=== PATIENT | female | born 1970 | race African-American/Black ===

== ENCOUNTER 2016-11-28 08:13 | Day surgery (SDC) | payer MEDICARE, MEDICAID ==
[2016-11-28] MEDS ORDERED: OXYCODONE-ACETAMINOPHEN 5-325 MG TABLET ONE (09:03)
[2016-11-28] MEDS ORDERED: DIAZEPAM 5 MG TABLET ONE (09:04)
[2016-11-28 09:07] LABS: HEMATOCRIT 34.1 % (36.0-47.0); HEMOGLOBIN 11.5 g/dL (12.0-15.5); HGB HCT DIFFERENCE 0.4; MEAN CORPUSCULAR HGB CONC 33.6 g/dL (32.0-36.0); MEAN CORPUSCULAR VOLUME 92 fl (80-97); RED CELL DISTRIBUTION WIDTH 15.6 % (11.5-14.0); WHITE BLOOD COUNT 9.2 10^3/uL (4.0-10.5)
[2016-11-28 09:28] LABS: ANION GAP 19 (5-19); BLOOD UREA NITROGEN 66 mg/dL (7-20); CALCIUM 9.3 mg/dL (8.4-10.2); CARBON DIOXIDE 23 mmol/L (22-30); CHLORIDE 98 mmol/L (98-107); CREATININE RESULT 9.43 mg/dL (0.52-1.25); GLUCOSE 190 mg/dL (75-110); POTASSIUM 5.2 mmol/L (3.6-5.0); SODIUM 139.8 mmol/L (137-145)
[2016-11-28] MEDS ORDERED: LIDOCAINE 0.5% INJ-PF (5 MG/ML) 50 ML SDV ONE (09:34)
[2016-11-28] MEDS ORDERED: HEPARIN SOD (PORCINE) 5,000 UNIT/ML 1 ML SYRINGE ONE (09:34)
--- NOTE | 2016-11-28 11:17 | PDOC DISCHARGE SUMMARY ---
Discharge Summary (SDC) - Discharge Final Diagnosis: Malfunctioning arteriovenous fistula. 2. End-stage renal disease on hemodialysis. 3. Peripheral arterial disease. 4. Diabetes mellitus type 2. 5. Hypertension. Date of Surgery: 11/28/16 Discharge Date: 11/28/16 Condition: Fair Treatment or Instructions: Discharge home [after recovery per ASU criteria]. Diet , [renal],as tolerated, when fully awake advance as tolerated. Activities within moderation encouraged. Follow up in my office by appointment in about [2 weeks]. Call for appointment. Leave wounds [covered], [keep clean and dry, until hemodialysis]. Meds per med rec. May shower [in 48 hrs], [try to keep operated area as dry as possible]. Referrals: MARTA CHEW PA-C [Primary Care Provider] - Discharge Diet: Other (Comments) - Renal, diabetic. Respiratory Treatments at Home: Deep Breathing/Coughing Discharge Activity: Activity As Tolerated Report the Following to Your Physician Immediately: Shortness of Breath, Unusual Bleeding
[2016-11-28 12:18] VITALS: BP 118/75
--- NOTE | 2016-11-28 15:44 | RADIOLOGY REPORT (SQ) ---
EXAM DESCRIPTION: FISTULAGRAM W/PLASTY COMPLETED DATE/TIME: 11/28/2016 3:03 pm REASON FOR STUDY: T82.858A T82.858A STENOSIS OF OTHER VASCULAR PROSTH DEV/GRFT, INIT COMPARISON: None. FLUOROSCOPY TIME: 4.1 minutes 32 images saved to PACS. TECHNIQUE: Intra-operative images acquired during surgical procedure to evaluate progress. NUMBER OF IMAGES: 32 LIMITATIONS: None. FINDINGS: Balloon catheter positioned across axillary region and upper extremity. IMPRESSION: IMAGE(S) OBTAINED DURING PROCEDURE. COMMENT: Quality ID [id number]: Final reports for procedures using fluoroscopy that document radiation exp osure indices, or exposure time and number of fluorographic images (if radiation exposure indices are not available) Please consult full operative report of the attending physician for description of the procedure. TECHNICAL DOCUMENTATION: JOB ID: [id number] [employer]- All Rights Reserved
--- NOTE | 2017-01-03 11:59 | Operative Report ---
Operative Report DATE OF SURGERY: 11/28/16 PREOPERATIVE DIAGNOSIS: Malfunctioning arteriovenous fistula. 2. End-stage renal disease on hemodialysis. 3. Peripheral arterial disease. 4. Diabetes mellitus type 2. 5. Hypertension. POSTOPERATIVE DIAGNOSIS: Malfunctioning arteriovenous fistula. 2. End-stage renal disease on hemodialysis. 3. Peripheral arterial disease. 4. Diabetes mellitus type 2. 5. Hypertension. Post angioplasty. OPERATION: 1. Needle introduction into the arteriovenous fistula. 2. Angioplasty at subclavian cephalic junction. 3. Angioplasty at fistula. 4. Angiogram and interpretation. SURGEON: ANGELINA WARD MANAGER NET: None ANESTHESIA: Moderate Sedation TISSUE REMOVED OR ALTERED: Not applicable. COMPLICATIONS: None ESTIMATED BLOOD LOSS: 5 mL. INTRAOPERATIVE FINDINGS: Of a well founded left arm brachiocephalic vein. Considerable dilatation almost a emilee fistula in the first 8 cm. Cephalad to that hard to feel. Angiogram demonstrated a tight stenosis at the cephalad cephalic and cephalic subclavian junction estimated to be up to 80% of the adjacent lumen. A collateral is noted also. These were eliminated including the collateral on angioplasty with an 8 mm balloon. A second and distinct lesion at 25 cm was also eradicated by angioplasty. Dilatation of the segment between 20 and 25 cm. This was relatively narrow demonstrated a waist. Postprocedure the fistula was much softer than initially although still with some firmness. Consideration to be given for a drug-eluting balloon in order to reduce restenosis in the future. PROCEDURE: PROCEDURE: After verifying the procedure and having obtained informed consent, the patient's left arm was prepared with Chlorhexidine and draped out with sterile linen. Local anesthesia infiltrated. Percutaneous access into the fistula ,[ antegrade], obtained about [2 cm] from the arteriovenous anastomosis using a micro puncture needle followed by micro puncture wire and then a micro puncture catheter. Angiogram demonstrated the aforementioned findings. Angioplasty was elected. A 0.035 Sterling wire was inserted, and over this, a 6 Azeri short introducer was placed, this was followed by a [7-mm ] angioplasty balloon . Angioplasty was Done at the cephalic subclavian junction and the cephalad cephalic is 7 mm balloon. Inflating with a 3 mils syringe. Completion angiogram demonstrated residual lesion. A 8 mm angioplasty balloon was now inserted over this area. Insufflater used 2 minutes The inflating up to 18 atmospheres for a minute at a time.]. Completion angiogram demonstrated [satisfactory result]. Area at the body of the fistula at about 25 cm no addressed using the balloon inflated using using a 3 mils syringe. This was done serially to the more dilated segments addressing 2 distinct waists. Completion angiogram not done. The instrumentation was now withdrawn over hand-held pressure for 10 minutes. Dressings applied, procedure concluded. Exposure time: 4.1 minutes Radiation: 20.6 mg/cm Contrast: 25 minutes of Isovue-300, low osmolality. DICTATING PHYSICIAN: ANGELINA JONES M.D. cc: ANGELINA JONES M.D. ([id number]) >>
== END 2016-11-28 11:50 | disposition home or self-care (01) ==
LOC: SC 08:13
PROVIDERS: ATTEND Surgery
PROC: 057A3DZ Dilation of Left Brachial Vein with Intraluminal Device, Percutaneous Approach (ICD-10-PCS; principal; 2016-11-28)
DX: T82.858A Stenosis of other vascular prosthetic devices, implants and grafts, initial encounter (principal); Y83.2 Surgical operation with anastomosis, bypass or graft as the cause of abnormal reaction of the patient, or of later complication, without mention of misadventure at the time of the procedure; E11.22 Type 2 diabetes mellitus with diabetic chronic kidney disease; I13.2 Hypertensive heart and chronic kidney disease with heart failure and with stage 5 chronic kidney disease, or end stage renal disease; N18.6 End stage renal disease; Z99.2 Dependence on renal dialysis; E50.9 Vitamin A deficiency, unspecified; J45.909 Unspecified asthma, uncomplicated; H91.91 Unspecified hearing loss, right ear; I73.9 Peripheral vascular disease, unspecified; Z79.51 Long term (current) use of inhaled steroids; Z79.899 Other long term (current) drug therapy; Z79.4 Long term (current) use of insulin
CPT/HCPCS: 36415; 85027; 80048; 36902; C1725 ×2; C1752; C1887; Q9967; C1769; J1644 ×2; A9270 ×2; J3490

== ENCOUNTER → 2016-12-05 | Outpatient (CLI) | payer MEDICARE, MEDICAID ==
--- NOTE | 2016-12-05 13:27 | XCELERA REPORT ---
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 Ankle brachial indicies performed. 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 Monophasic with significant attenuation from the Popliteal to the infrageniculate vessels. 50-99 % stenosis at the Femoral/Popliteal artery. Ankle Brachial index is 0.66. Left Side Arterial Evaluation Normal velocity and triphasic waveforms noted in the Common Femoral artery. Monophasic with significant attenuation from the Popliteal to the infrageniculate vessels. 50-99 % stenosis at the Femoral/Popliteal artery. Ankle Brachial index is 0.81. Interpretation Summary Severe hemodynamically significant lesions in the bilateral lower extremities, on duplex imaging, at rest. : ANGELINA TONG > Angelina Tong
== END ==
LOC: SP 10:40
PROVIDERS: ATTEND Surgery
DX: I73.9 Peripheral vascular disease, unspecified (principal)
CPT/HCPCS: 93925

== ENCOUNTER 2017-01-11 13:11 | Emergency (ER) | payer MEDICARE, MEDICAID ==
[2017-01-11] MEDS ORDERED: CEFEPIME 1 GM/D5W RTU 1 GM/50 ML RTUPB IV ONE (14:13)
[2017-01-11 14:54] LABS: HEMATOCRIT 27.7 % (36.0-47.0); HEMOGLOBIN 9.3 g/dL (12.0-15.5); HGB HCT DIFFERENCE 0.2; MEAN CORPUSCULAR HEMOGLOBIN 31.1 pg (27.0-33.4); MEAN CORPUSCULAR HGB CONC 33.5 g/dL (32.0-36.0); MEAN CORPUSCULAR VOLUME 93 fl (80-97); RED BLOOD COUNT 2.99 10^6/uL (3.72-5.28); RED CELL DISTRIBUTION WIDTH 15.3 % (11.5-14.0)
[2017-01-11 14:56] LABS: PROTHROMBIN TIME 19.6 SEC (11.4-15.4)
[2017-01-11 15:02] LABS: WHITE BLOOD COUNT 31.5 10^3/uL (4.0-10.5)
[2017-01-11 15:08] LABS: VENOUS BLOOD BASE EXCESS 1.4 mmol/L; VENOUS BLOOD PCO2 47.6 mmHg (35-63); VENOUS BLOOD PH 7.37 (7.30-7.42)
[2017-01-11 15:15] LABS: BAND NEUTROPHILS % (MANUAL) 2 % (3-5); BASOPHILS % (MANUAL) 0 % (0-2); EOSINOPHILS % (MANUAL) 0 % (0-6); LYMPHOCYTES % (MANUAL) 4 % (13-45); TOTAL CELLS COUNTED 100
[2017-01-11 15:16] LABS: HYPOCHROMASIA SLIGHT; POLYCHROMASIA SLIGHT; TOXIC GRANULATION SLIGHT
--- NOTE | 2017-01-11 15:27 | ER Document Report ---
ED General - General Mode of Arrival: Wheelchair Information source: Patient, Relative TRAVEL OUTSIDE OF THE [place] IN LAST 30 DAYS: No <BERNARD WHARTON - Last Filed: 01/11/17 19:38> <DILSHAD SCHWAB - Last Filed: 01/11/17 19:40> - General Chief Complaint: Wound Infection Stated Complaint: ALTERED MENTAL STATUS Time Seen by Provider: 01/11/17 13:48 Notes: Patient is a 46 year old female who presents to the emergency department complaining of right foot pain. Patient states that her right great toe pain has been present for a couple of week and has progressively gotten worse after a surgery to have her bilateral arteries opened. Patient was sent to the ED by Dr. Bauer from dialysis when she became hypotensive. He was concerned for sepsis. Dr. Bauer recommends transfer to [facility]. Patient has had an associated fever in which her has given her Tylenol. Patient was under treatment of Dr. Pemberton who performed her surgery. Patient is hard of hearing. (BERNARD WHARTON) - Related Data Allergies/Adverse Reactions: No Known Allergies Allergy (Verified 12/31/16 13:34) Past Medical History - General Information source: Patient, Relative - Social History Smoking Status: Former Smoker Cigarette use (# per day): No Chew tobacco use (# tins/day): No Smoking Education Provided: No Frequency of alcohol use: None Family History: None - Past Medical History Cardiac Medical History: Reports: Hx Hypertension Pulmonary Medical History: Reports: Hx Asthma Endocrine Medical History: Reports: Hx Diabetes Mellitus Type 1 Renal/ Medical History: Reports: Hx End Stage Renal Disease, Hx Hemodialysis Past Surgical History: Reports: Hx Vascular Surgery - fistula placement - Immunizations Hx Diphtheria, Pertussis, Tetanus Vaccination: Yes <BERNARD WHARTON - Last Filed: 01/11/17 19:38> Review of Systems - Review of Systems Constitutional: See HPI, Fever EENT: No symptoms reported Cardiovascular: No symptoms reported Respiratory: No symptoms reported Gastrointestinal: No symptoms reported Genitourinary: No symptoms reported Female Genitourinary: No symptoms reported Musculoskeletal: Other - right great toe and foot pain Skin: No symptoms reported Hematologic/Lymphatic: No symptoms reported -: Yes All other systems reviewed and negative <BERNARD WHARTON - Last Filed: 01/11/17 19:38> Physical Exam <BERANRD WHARTON - Last Filed: 01/11/17 19:38> <DILSHAD SCHWAB - Last Filed: 01/11/17 19:40> - Vital signs Vitals: Resp 16 01/11/17 13:27 - Notes Notes: GENERAL: Alert, interacts well. No acute distress. HEAD: Normocephalic, atraumatic. EYES: Pupils equal, round, and reactive to light. Extraocular movements intact. ENT: Oral mucosa moist, tongue midline. NECK: Full range of motion. Supple. Trachea midline. LUNGS: Clear to auscultation bilaterally, no wheezes, rales, or rhonchi. No respiratory distress. HEART: Tachycardic, regular rhythm. No murmurs, gallops, or rubs. ABDOMEN: Soft, non-tender. Non-distended. Bowel sounds present in all 4 quadrants. EXTREMITIES: Moves all 4 extremities spontaneously. No edema, radial and dorsalis pedis pulses 2/4 bilaterally. No cyanosis. Right great toe skin is sloughing. Toe is squishy, significantly softer than the rest. Right foot and leg is tender to palpation. Distal aspect cool to touch, rest of foot is warm. Right foot is extremely malodorous. NEUROLOGICAL: Alert and oriented x3. Normal speech. Biceps and patellar DTRs 2+ bilaterally. PSYCH: Normal affect, normal mood. SKIN: Warm, dry, normal turgor. No rashes or lesions noted. (BERNARD WHARTON) Course - Laboratory Result Diagrams: 01/11/17 14:15 01/11/17 14:15 - Consults Dr. Agrawal, Resident Time consulted: 16:05 - Would like patient to go to [facility] <BERNARD WHRATON - Last Filed: 01/11/17 19:38> - Laboratory Result Diagrams: 01/11/17 14:15 01/11/17 14:15 <DILSHAD SCHWAB - Last Filed: 01/11/17 19:40> - Re-evaluation Re-evalutation: 01/11/17 17:23 CBC shows marked leukocytosis of 31.5, anemia consistent with her chronic kidney disease 9.3, platelets normal, INR prolonged at 1.55 likely related to the dialysis she was just undergoing, venous blood gas unremarkable, chemistries show anion gap of 20, chronic renal failure, hyperglycemia but this is not fasting, there is elevated total and direct bilirubin and surprisingly they are equal at 2.2 respectively, otherwise unremarkable. Lactic acid is normal. Given her hypotension, obvious source of infection from the gangrenous foot as well as her multiple comorbidities and her marked leukocytosis and concern for sepsis in fact patient is consistent with septic shock at this time. EKG does have some ischemia on it but no evidence of infarction, there are concerning T- wave inversions in the precordial and lateral leads. Patient is a dialysis patient and will not tolerate an immediate bolus of 30 cc/ kg of normal saline, she was given an initial bolus of 500 mL's of normal saline which did significantly improve her blood pressure however then the ultrasound-guided IV that I inserted in the right upper extremity infiltrated and I had to insert a right EJ also ultrasound-guided, we are now infusing another 500 cc bag of normal saline but at a much slower rate. I discussed this patient with her web operations manager Dr. Bauer who recommends transfer to a another facility that has vascular surgery and cardiology who can consult on her operative needs. I did discuss this patient initially with Dr. Agrawal the internal medicine resident who requested that Dr. Pemberton service be consulted instead, Dr. Pemberton service was contacted by the digitizer operator and Dr. Dax Mcmullen accepted the patient to his service based off of the report from the digitizer operator. Patient will be transferred as a rapid transport as I am concerned by her instability and evidence of septic shock. Cefepime was given empirically. (DILSHAD SCHWAB) - Vital Signs Vital signs: Temp Pulse Resp BP Pulse Ox 15 119/56 L 99 01/11/17 18:00 01/11/17 17:20 01/11/17 18:00 - Laboratory Laboratory results interpreted by me: 01/11/17 01/11/17 01/11/17 14:15 14:15 14:15 WBC 31.5 H* RBC 2.99 L Hgb 9.3 L Hct 27.7 L RDW 15.3 H Seg Neuts % (Manual) 88 H Band Neutrophils % 2 L Lymphocytes % (Manual) 4 L Abs Neuts (Manual) 28.4 H Abs Monocytes (Manual) 1.9 H PT 19.6 H Chloride 96 L Anion Gap 20 H BUN 86 H Creatinine 13.43 H Est GFR ( Amer) 4 L Est GFR (Non-Af Amer) 3 L Glucose 147 H POC Glucose Total Bilirubin 2.2 H Direct Bilirubin 2.2 H AST 41 H Alkaline Phosphatase 219 H 01/11/17 14:51 WBC RBC Hgb Hct RDW Seg Neuts % (Manual) Band Neutrophils % Lymphocytes % (Manual) Abs Neuts (Manual) Abs Monocytes (Manual) PT Chloride Anion Gap BUN Creatinine Est GFR ( Amer) Est GFR (Non-Af Amer) Glucose POC Glucose 156 H Total Bilirubin Direct Bilirubin AST Alkaline Phosphatase Critical Care Note - Critical Care Note Total time excluding time spent on procedures (mins): 55 <DILSHAD SCHWAB - Last Filed: 01/11/17 19:40> Discharge <BERNARD WHARTON - Last Filed: 01/11/17 19:38> <DILSHAD SCHWAB - Last Filed: 01/11/17 19:40> - Discharge Clinical Impression: Septic shock, Gangrene of right foot, ESRD (end stage renal disease) on dialysis Condition: Critical Disposition: [facility] Scribe Attestation: 01/11/17 19:40 I personally performed the services described in the documentation, reviewed and edited the documentation which was dictated to the scribe in my presence, and it accurately records my words and actions. (DILSHAD SCHWAB) Scribe Documentation - Scribe Written by Luis:: Luis Allen, 01/11/2017 15:42 acting as scribe for :: Stacey <BERNARD WHARTON - Last Filed: 01/11/17 19:38> Sepsis <BERNARD WHARTON - Last Filed: 01/11/17 19:38> - Sepsis Documentation Sepsis Patient: Yes - Vital Signs Interpretation: Tachycardic - Cardiovascular Peripheral Pulse Strength: Weak Capillary refill: < 3 seconds Rhythm: Tachycardia Heart Sounds: Normal auscultation - Respiratory Breath Sounds: Clear Respiratory Status: No respiratory distress - Skin Skin Color: Other <DILSHAD SCHWAB - Last Filed: 01/11/17 19:40> - Vital Signs Vitals: Temp Pulse Resp BP Pulse Ox 15 119/56 L 99 01/11/17 18:00 01/11/17 17:20 01/11/17 18:00 Current vitals at 1725 the time of reassessment includes sinus tachycardia at a rate of 106, pulse ox 97% on 2 L, respiratory rate of 20, blood pressure 119/56. (DILSHAD SCHWAB) - Skin Notes: Skin is sloughed over the great toe on the right foot, otherwise skin is warm with capillary refill less than 3 seconds. (DILSHAD SCHWAB)
[2017-01-11 15:28] LABS: ALANINE AMINOTRANSFERASE 26 U/L (9-52); ALBUMIN 3.7 g/dL (3.5-5.0); ALKALINE PHOSPHATASE 219 U/L (38-126); ASPARTATE AMINO TRANSFERASE 41 U/L (14-36); BILIRUBIN,DIRECT 2.2 mg/dL (0.0-0.4); BILIRUBIN,TOTAL 2.2 mg/dL (0.2-1.3); BLOOD UREA NITROGEN 86 mg/dL (7-20); CALCIUM 8.9 mg/dL (8.4-10.2); CHLORIDE 96 mmol/L (98-107); CREATININE RESULT 13.43 mg/dL (0.52-1.25); GLUCOSE 147 mg/dL (75-110); TOTAL PROTEIN 8.1 g/dL (6.3-8.2)
[2017-01-11] MEDS ORDERED: NORMAL SALINE 500 ML IV ONE ×2 (15:35)
[2017-01-11 15:42] LABS: CARBON DIOXIDE 25 mmol/L (22-30); SODIUM 141.3 mmol/L (137-145)
[2017-01-11 15:43] LABS: ANION GAP 20 (5-19)
[2017-01-11 20:21] VITALS: BP 125/57
--- NOTE | 2017-01-11 23:54 | EKG REPORT ---
SEVERITY:- ABNORMAL ECG - SINUS TACHYCARDIA PROBABLE LEFT ATRIAL ABNORMALITY LEFT AXIS DEVIATION ABNORMAL T, CONSIDER ISCHEMIA, LATERAL LEADS : Confirmed by: Bam Diez 11-Jan-2017 23:54:07
[2017-01-12 11:13] LABS: PATH REVIEW PATHOLOGIST REVIEWED
== END 2017-01-11 20:20 | disposition short-term general hospital (02) ==
LOC: ER 13:11
DX: A41.9 Sepsis, unspecified organism (principal); R65.21 Severe sepsis with septic shock; E10.52 Type 1 diabetes mellitus with diabetic peripheral angiopathy with gangrene; E10.65 Type 1 diabetes mellitus with hyperglycemia; I12.0 Hypertensive chronic kidney disease with stage 5 chronic kidney disease or end stage renal disease; E10.22 Type 1 diabetes mellitus with diabetic chronic kidney disease; N18.6 End stage renal disease; Z99.2 Dependence on renal dialysis; D64.9 Anemia, unspecified; J45.909 Unspecified asthma, uncomplicated
CPT/HCPCS: 93005; 99291; 96361; 96365; 36415; 87040; 82962; 85025; 85610; 87077; 80053; 87186; 82803; 83605; 93010; J7040; J0692

== ENCOUNTER 2017-03-06 23:48 | Emergency (ER) | payer MEDICARE, MEDICAID ==
[2017-03-07] MEDS ORDERED: ACETAMINOPHEN 325 MG TABLET PO ONE (02:17)
[2017-03-07] MEDS ORDERED: DIAZEPAM 5 MG TABLET PO ONE (02:17)
[2017-03-07 02:27] LABS: ABSOLUTE BASOPHILS # (AUTO) 0.1 10^3/uL (0.0-0.2); ABSOLUTE EOSINOPHILS # (AUTO) 0.2 10^3/uL (0.0-0.6); ABSOLUTE MONOCYTES (AUTO) 0.6 10^3/uL (0.1-1.4); ABSOLUTE NEUT (AUTO) 6.9 10^3/uL (1.7-8.2); BASOPHILS % (AUTO) 1.1 % (0-2); EOSINOPHILS % (AUTO) 2.2 % (0-6); HEMOGLOBIN 8.4 g/dL (12.0-15.5); LYMPHOCYTES % (AUTO) 11.1 % (13-45); MEAN CORPUSCULAR HEMOGLOBIN 29.8 pg (27.0-33.4); MEAN CORPUSCULAR HGB CONC 32.5 g/dL (32.0-36.0); MEAN CORPUSCULAR VOLUME 92 fl (80-97); MONOCYTES % (AUTO) 6.4 % (3-13); PLATELET COUNT 203 10^3/uL (150-450); RED BLOOD COUNT 2.84 10^6/uL (3.72-5.28); SEGMENTED NEUTROPHILS % (AUTO) 79.2 % (42-78); TOTAL CELLS COUNTED % (AUTO) 100 %; WHITE BLOOD COUNT 8.8 10^3/uL (4.0-10.5)
--- NOTE | 2017-03-07 02:45 | ER Document Report ---
ED General - General Chief Complaint: Fall Injury Stated Complaint: FALL,NOSE BLEED Time Seen by Provider: 03/07/17 01:48 Notes: Patient is a 46-year-old female with past medical history of diabetes, chronic pain, chronic anxiety, who presents after she fell out of her bed while trying to reach for something on the end table. She states that she landed onto the floor on her face. She notes that she also hit the upper portion of her abdomen. She originally had a nosebleed but this has since stopped. She arrives by EMS. At time of presentation there is no active nosebleed. Patient claims of a dull, constant, throbbing pain to her nose. She notes some intermittent mild epigastric abdominal discomfort but denies that this is the main reason for her presentation. She denies any other injury to any other part of her body. She does not take any form of anticoagulation. She does have chronic anemia at baseline. TRAVEL OUTSIDE OF THE [place] IN LAST 30 DAYS: No - Related Data Allergies/Adverse Reactions: No Known Allergies Allergy (Verified 12/31/16 13:34) Past Medical History - General Information source: Patient, Relative - Social History Smoking Status: Never Smoker Frequency of alcohol use: None Drug Abuse: None Lives with: Spouse/Significant other Family History: Reviewed & Not Pertinent - Past Medical History Cardiac Medical History: Reports: Hx Hypertension Denies: Hx Coronary Artery Disease, Hx Heart Attack Pulmonary Medical History: Reports: Hx Asthma Denies: Hx Bronchitis, Hx COPD, Hx Pneumonia Neurological Medical History: Denies: Hx Cerebrovascular Accident, Hx Seizures Endocrine Medical History: Reports: Hx Diabetes Mellitus Type 1 Renal/ Medical History: Reports: Hx End Stage Renal Disease, Hx Hemodialysis. Denies: Hx Peritoneal Dialysis Musculoskeltal Medical History: Denies Hx Arthritis Past Surgical History: Reports: Hx Vascular Surgery - fistula placement - Immunizations Hx Diphtheria, Pertussis, Tetanus Vaccination: Yes Review of Systems - Review of Systems Notes: Constitutional: Negative for fever. Eyes: Negative for visual changes. ENT: Positive for facial injury Cardiovascular: Negative for chest injury. Respiratory: Negative for shortness of breath. Gastrointestinal: Negative for abdominal injury. Genitourinary: Negative for genital injury Musculoskeletal: Negative for back injury. Skin: Negative for laceration/abrasions. Neurological: Negative for head injury. Physical Exam - Vital signs Vitals: Temp Pulse Resp BP Pulse Ox 98.1 F 81 20 119/70 93 03/07/17 00:00 03/07/17 00:00 03/07/17 00:00 03/07/17 00:00 03/07/17 00:00 Interpretation: Normal Notes: PHYSICAL EXAMINATION: GENERAL: Well-appearing, well-nourished and in no acute distress. HEAD: Atraumatic, normocephalic. EYES: Pupils equal round and reactive to light, extraocular movements intact, sclera anicteric, conjunctiva are normal. ENT: nares patent, small amount of dried blood in the left nostril, right nostril is clear. No septal hematoma. No nasal bone deviation. NECK: Normal range of motion, supple without lymphadenopathy LUNGS: Breath sounds clear to auscultation bilaterally and equal. No wheezes rales or rhonchi. HEART: Regular rate and rhythm without murmurs ABDOMEN: Soft, nontender, normoactive bowel sounds. No guarding, no rebound. No masses appreciated. EXTREMITIES: Right BKA, otherwise external exam is unremarkable NEUROLOGICAL: No focal neurological deficits. Moves all extremities spontaneously and on command. PSYCH: Normal mood, normal affect. SKIN: Warm, Dry, normal turgor, no rashes or lesions noted. Course - Re-evaluation Re-evalutation: 03/07/17 02:41 Presentation of a nosebleed after a direct nose trauma that has terminated prior to my assessment. Patient is overall nontoxic in appearance. No septal hematoma. Dried blood in the left nostril. There is no evidence of facial trauma otherwise. No obvious deformity to the nose. Nasal bone x-ray does show an acute nondisplaced nasal bone fracture. Patient also complained of some mild abdominal pain. Abdominal exam without any evidence of trauma. There is no pain on palpation of the abdomen. No indication for CT or ultrasound imaging of the abdomen at this time. Her hemoglobin is low at 8.7 but this is actually improved from less than 1 month ago at which time it was 8.7. At this time will discharge with return precautions and follow-up recommendations. Verbal discharge instructions given a the bedside and opportunity for questions given. Medication warnings reviewed. Patient is in agreement with this plan and has verbalized understanding of return precautions and the need for primary care follow-up in the next 24-72 hours. - Vital Signs Vital signs: Temp Pulse Resp BP Pulse Ox 98.1 F 81 20 119/70 93 03/07/17 00:00 03/07/17 00:00 03/07/17 00:00 03/07/17 00:00 03/07/17 00:00 - Laboratory Result Diagrams: 03/07/17 02:15 Laboratory results interpreted by me: 03/07/17 02:15 RBC 2.84 L Hgb 8.4 L Hct 26.0 L RDW 16.0 H Seg Neutrophils % 79.2 H Lymphocytes % 11.1 L - Diagnostic Test Radiology reviewed: Reports reviewed Discharge - Discharge Clinical Impression: Nosebleed Fall Qualifiers: Encounter type: initial encounter Qualified Code(s): W19.XXXA - Unspecified fall, initial encounter Closed nondisplaced fracture of nasal bone Qualifiers: Encounter type: initial encounter Qualified Code(s): S02.2XXA - Fracture of nasal bones, initial encounter for closed fracture Condition: Good Disposition: HOME, SELF-CARE Additional Instructions: You were seen today for a nosebleed. If this restarts please apply direct pressure to the area for 15 minutes without releasing pressure. You can use 4- 5 sprays the Afrin (oxymetazoline) spray that was given to you here in the emergency room into the affected side prior to applying the pressure. You need to apply vasaline or a similar product along the inside of the side of the nose that is bleeding twice daily to help heal the inside of your nose. Please return to emergency department if these measures do not control the bleeding. Please also return if you pass out, have significant pain of the nose or face, or any other symptoms that are concerning to you. Your x-ray does show a small nondisplaced nasal bone fracture which will heal on its own over the next 8-10 weeks. You will noticed increased swelling to the area before it completely heals. You may apply ice to the nose as needed for pain and discomfort. Referrals: MARTA CHEW PA-C [Primary Care Provider] - Follow up as needed
--- NOTE | 2017-03-07 03:11 | RADIOLOGY REPORT (SQ) ---
EXAM DESCRIPTION: NOSE/NASAL BONES CLINICAL HISTORY: nose trauma COMPARISON: None. FINDINGS: 3 views of the nasal bones. Acute nondisplaced nasal bone fracture. No other facial bone fractures identified. Visualized portions of the orbits are unremarkable. IMPRESSION: Acute nondisplaced nasal bone fracture.
[2017-03-07] MEDS ORDERED: OXYMETAZOLINE HCL 0.05% NASAL SPRAY 15 ML BOTTLE NASL ONE (03:26)
[2017-03-07 05:22] VITALS: BP 119/93
== END 2017-03-07 12:30 | disposition home or self-care (01) ==
LOC: ER 23:48
DX: S02.2XXA Fracture of nasal bones, initial encounter for closed fracture (principal); R04.0 Epistaxis; W06.XXXA Fall from bed, initial encounter; I10 Essential (primary) hypertension; E10.22 Type 1 diabetes mellitus with diabetic chronic kidney disease; N18.6 End stage renal disease
CPT/HCPCS: 99285; 36415; 85025; 70160; A9270 ×2; J3490

== ENCOUNTER 2017-03-08 15:25 | Inpatient (IN) | payer MEDICARE, MEDICAID ==
[2017-03-08] MEDS ORDERED: ONDANSETRON 4 MG TAB.RAPDIS PO ONE (17:39)
--- NOTE | 2017-03-08 17:44 | ER Document Report ---
ED Medical Screen (RME) - General Chief Complaint: Abdominal Pain Stated Complaint: ABDOMINAL PAIN Time Seen by Provider: 03/08/17 17:37 Mode of Arrival: Wheelchair Information source: Relative Notes: Pt is a 46 year old female with CKD on dialysis and hearing loss who presents to the ER today for abd pain/n/v/d x 3 days. She went to dialysis yesterday as scheduled. Family member states that she at her normal mental status today. She shows me with her hand that her abd pain is in the middle of her abd. TRAVEL OUTSIDE OF THE [place] IN LAST 30 DAYS: No - Related Data Allergies/Adverse Reactions: No Known Allergies Allergy (Verified 12/31/16 13:34) Past Medical History - General Information source: Patient - Past Medical History Cardiac Medical History: Reports: Hx Hypertension Denies: Hx Coronary Artery Disease, Hx Heart Attack Pulmonary Medical History: Reports: Hx Asthma Denies: Hx Bronchitis, Hx COPD, Hx Pneumonia Neurological Medical History: Denies: Hx Cerebrovascular Accident, Hx Seizures Endocrine Medical History: Reports: Hx Diabetes Mellitus Type 1 Renal/ Medical History: Reports: Hx End Stage Renal Disease, Hx Hemodialysis. Denies: Hx Peritoneal Dialysis Musculoskeltal Medical History: Denies Hx Arthritis Past Surgical History: Reports: Hx Vascular Surgery - fistula placement - Immunizations Hx Diphtheria, Pertussis, Tetanus Vaccination: Yes History of Influenza Vaccine for 11/2016 - 04/2017 Season: Yes Influenza Administration Date for 11/2016 - 04/2017 Season: 10/28/16 Review of Systems - Review of Systems Gastrointestinal: See HPI Physical Exam - Vital signs Vitals: Temp Pulse Resp BP Pulse Ox 99.0 F 100 16 160/82 H 100 03/08/17 16:14 03/08/17 16:14 03/08/17 16:14 03/08/17 16:14 03/08/17 16:14 - Notes Notes: General: hard of hearing, slumped over in wheelchair, will respond to questions if spoken loudly Course - Vital Signs Vital signs: Temp Pulse Resp BP Pulse Ox 99.0 F 100 16 160/82 H 100 03/08/17 16:14 03/08/17 16:14 03/08/17 16:14 03/08/17 16:14 03/08/17 16:14
[2017-03-08 19:23] LABS: ABSOLUTE BASOPHILS # (AUTO) 0.1 10^3/uL (0.0-0.2); ABSOLUTE EOSINOPHILS # (AUTO) 0.1 10^3/uL (0.0-0.6); ABSOLUTE LYMPHOCYTES (AUTO) 1.1 10^3/uL (0.5-4.7); ABSOLUTE MONOCYTES (AUTO) 0.9 10^3/uL (0.1-1.4); ABSOLUTE NEUT (AUTO) 10.8 10^3/uL (1.7-8.2); BASOPHILS % (AUTO) 1.1 % (0-2); HEMATOCRIT 31.2 % (36.0-47.0); LYMPHOCYTES % (AUTO) 8.1 % (13-45); MEAN CORPUSCULAR HEMOGLOBIN 29.2 pg (27.0-33.4); MEAN CORPUSCULAR HGB CONC 32.1 g/dL (32.0-36.0); MEAN CORPUSCULAR VOLUME 91 fl (80-97); MONOCYTES % (AUTO) 6.8 % (3-13); PLATELET COUNT 244 10^3/uL (150-450); RED BLOOD COUNT 3.43 10^6/uL (3.72-5.28); RED CELL DISTRIBUTION WIDTH 16.1 % (11.5-14.0); TOTAL CELLS COUNTED % (AUTO) 100 %
[2017-03-08 19:42] LABS: ALANINE AMINOTRANSFERASE 61 U/L (9-52); ALBUMIN 4.6 g/dL (3.5-5.0); ALKALINE PHOSPHATASE 259 U/L (38-126); ANION GAP 19 (5-19); ASPARTATE AMINO TRANSFERASE 57 U/L (14-36); BILIRUBIN,DIRECT 1.1 mg/dL (0.0-0.4); BILIRUBIN,TOTAL 1.1 mg/dL (0.2-1.3); BLOOD UREA NITROGEN 64 mg/dL (7-20); CALCIUM 8.5 mg/dL (8.4-10.2); CARBON DIOXIDE 23 mmol/L (22-30); CHLORIDE 99 mmol/L (98-107); GLUCOSE 87 mg/dL (75-110); LIPASE 44.2 U/L (23-300); POTASSIUM 4.8 mmol/L (3.6-5.0); SODIUM 141.2 mmol/L (137-145); TOTAL PROTEIN 8.9 g/dL (6.3-8.2)
[2017-03-08] MEDS ORDERED: HYDROMORPHONE HCL INJ/PF 2 MG/ML AMPULE IM ONE (22:24)
--- NOTE | 2017-03-08 22:55 | ER Document Report ---
ED General - General Chief Complaint: Abdominal Pain Stated Complaint: ABDOMINAL PAIN Time Seen by Provider: 03/08/17 17:37 Mode of Arrival: Wheelchair Notes: Patient is a 46-year-old female presents with complaint abdominal pain. Bone pain that started after she fell 1 week ago. Patient hit her nose had bleeding from her nose. That time she was discharged. Abdominal pain is continued. She says some vomiting. Is difficult to determine whether or not she has a history of cholecystectomy or not. She is hard of hearing. Family members with her. When we ask her she initially says yes and then she says "do think there could be something wrong with my gallbladder?". Diarrhea. She is on dialysis. Last dialysis was Monday and things were normal. She is due for dialysis tomorrow. No comp occasions with dialysis as of recently. She also complains of some pain that is chronic in her right leg. 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 She still has valdez in place and is scheduled to see Dr. Galeana this coming week to have these removed. This pain in her right leg is unchanged. No recent discharge or redness or swelling to the right leg. TRAVEL OUTSIDE OF THE [place] IN LAST 30 DAYS: No - Related Data Allergies/Adverse Reactions: No Known Allergies Allergy (Verified 12/31/16 13:34) Past Medical History - General Information source: Patient - Social History Smoking Status: Former Smoker Frequency of alcohol use: None Drug Abuse: None Family History: Reviewed & Not Pertinent Patient has suicidal ideation: No Patient has homicidal ideation: No - Past Medical History Cardiac Medical History: Reports: Hx Hypertension Denies: Hx Coronary Artery Disease, Hx Heart Attack Pulmonary Medical History: Reports: Hx Asthma Denies: Hx Bronchitis, Hx COPD, Hx Pneumonia Neurological Medical History: Denies: Hx Cerebrovascular Accident, Hx Seizures Endocrine Medical History: Reports: Hx Diabetes Mellitus Type 1 Renal/ Medical History: Reports: Hx End Stage Renal Disease, Hx Hemodialysis. Denies: Hx Peritoneal Dialysis Musculoskeltal Medical History: Denies Hx Arthritis Past Surgical History: Reports: Hx Vascular Surgery - fistula placement - Immunizations Hx Diphtheria, Pertussis, Tetanus Vaccination: Yes Review of Systems - Review of Systems Notes: My Normal Review Basic REVIEW OF SYSTEMS: CONSTITUTIONAL : Denies fever, chills, or sweats. Denies recent illness. EENT: Denies eye, ear, throat, or mouth pain or symptoms. Denies nasal or sinus congestion. CARDIOVASCULAR: Denies chest pain. RESPIRATORY: Denies cough, cold, or chest congestion. Denies shortness of breath, difficulty breathing, or wheezing. GASTROINTESTINAL: Abdominal pain. Some nausea vomiting. No diarrhea. GENITOURINARY: Denies difficulty urinating, painful urination, burning, frequency, or blood in urine. MUSCULOSKELETAL: Right leg pain. SKIN: Denies rash or skin lesions. NEUROLOGICAL: Denies altered mental status or loss of consciousness. Denies headache. Denies weakness or paralysis or loss of use of either side. Denies problems with gait or speech. Denies sensory or motor loss. ALL OTHER SYSTEMS REVIEWED AND NEGATIVE. Physical Exam - Vital signs Vitals: Temp Pulse Resp BP Pulse Ox 99.0 F 100 16 160/82 H 100 03/08/17 16:14 03/08/17 16:14 03/08/17 16:14 03/08/17 16:14 03/08/17 16:14 - Notes Notes: General Appearance: Well nourished, alert, cooperative, no acute distress, mild obvious discomfort. Vitals: reviewed, See vital signs table. Head: no swelling or tenderness to the head Eyes: PERRL, EOMI, Conjuctiva clear Mouth: No decreasd moisture Lungs: No wheezing, No rales, No rhonci, No accessory muscle use, good air exchange bilaterally. Heart: Normal rate, Regular rythm, No murmur, no rub Abdomen: Normal BS, soft, No rigidity, patient has mild to moderate pain to palpation no matter where you palpate her abdomen, No guarding, no rebound Extremities: strength 5/5 in all extremities, good pulses in all extremities, no swelling or tenderness in the extremities, no edema. Skin: warm, dry, appropriate color, no rash Neuro: speech clear, oriented x 3, normal affect, responds appropriately to questions. Course - Re-evaluation Re-evalutation: 03/09/17 01:28 Patient had a distended gallbladder on CT scan. I therefore order the ultrasound. When I went to the ultrasound patient suddenly vomited several times and then passed out. Arrived patient was started to wake up. She felt short of breath. She is brought back to the ER oxygen saturation was 100% with her receiving supplemental oxygen. We have been able to titrate oxygen to off. She is now awake and alert. She denies any abdominal pain at this time. I have ordered an EKG. I have ordered cardiac enzymes. Lung loza remain clear. 03/09/17 05:45 Dr. Jane is having difficulty ordering HIDA scan through [facility]. I therefore ordered for him on his behalf. He said he would follow-up on the results. I did speak with Dr. Bose, hospitalist, as well as Dr. Abel, surgical list about the patient. Her history and exam is very atypical and does not consistent with any one particular thing. Her pain is diffuse. She does have a history of this fall however she says that the pain and vomiting occur whenever she tries to eat or drink anything. She also has diarrhea. CT scan is very vague as to what could be causing it. Her ultrasound does show that she has a dilated gallbladder with sludge. My concern is that she is a diabetic and end-stage renal disease patient and noticed this is the gallbladder causing her symptoms that she could of course get worse. Dr. figueroa agree to evaluate the patient he did. Dr. Bose agreed to admit the patient. I did speak with nursing banking supervisor says we do have dialysis capability to dialysis patient. Her flight nurse is Dr. Bauer. She is due for dialysis today. They would defer the workup to further delineate if this is indeed her gallbladder some other cause of what is causing her symptoms. Troponin is also elevated. This could be related to the fact that she is due for dialysis now. Dr. Bose will follow up on repeat troponin and have patient dialyzed to help further determine the exact etiology behind the troponin. Patient denies any form of chest pain. Dictation of this chart was performed using voice recognition software; therefore, there may be some unintended grammatical errors. - Vital Signs Vital signs: Temp Pulse Resp BP Pulse Ox 99.0 F 100 10 L 106/68 96 03/08/17 16:14 03/08/17 16:14 03/09/17 03:31 03/09/17 03:31 03/09/17 03:31 - Laboratory Result Diagrams: 03/08/17 18:15 03/08/17 18:15 Laboratory results interpreted by me: 03/08/17 03/08/17 03/09/17 18:15 18:15 03:47 WBC 13.0 H RBC 3.43 L Hgb 10.0 L Hct 31.2 L RDW 16.1 H Seg Neutrophils % 83.0 H Lymphocytes % 8.1 L Absolute Neutrophils 10.8 H BUN 64 H Creatinine 10.36 H Est GFR ( Amer) 5 L Est GFR (Non-Af Amer) 4 L Direct Bilirubin 1.1 H GGT AST 57 H ALT 61 H Alkaline Phosphatase 259 H Creatine Kinase 179 H CK-MB (CK-2) Total Protein 8.9 H 03/09/17 03/09/17 03:47 03:47 WBC RBC Hgb Hct RDW Seg Neutrophils % Lymphocytes % Absolute Neutrophils BUN Creatinine Est GFR ( Amer) Est GFR (Non-Af Amer) Direct Bilirubin GGT 95 H AST ALT Alkaline Phosphatase Creatine Kinase CK-MB (CK-2) 4.76 H Total Protein - EKG Interpretation by Me Additional EKG results interpreted by me: 03/09/17 01:30 EKG is reviewed and interpreted by me. EKG shows normal sinus rhythm with rate of [address] segment depression in the lateral precordial leads as well as lead II. T-wave inversions in leads I, aVL and V6. WI interval, QRS duration are within normal range. QTc interval is prolonged. The T-wave inversions and ST segment depressions are unchanged comparison to her old EKG from January 11, 2017. 03/09/17 01:31 Discharge - Discharge Clinical Impression: Cholecystitis, ESRD (end stage renal disease), Elevated troponin Syncope Qualifiers: Syncope type: unspecified Qualified Code(s): R55 - Syncope and collapse Condition: Stable Disposition: ADMITTED INPATIENT Admitting Provider: Hospitalist Unit Admitted: [facility]
--- NOTE | 2017-03-09 00:08 | RADIOLOGY REPORT (SQ) ---
EXAM DESCRIPTION: CT ABD/PELVIS NO ORAL OR IV COMPLETED DATE/TIME: 03/08/2017 11:17 pm REASON FOR STUDY: abdominal pain COMPARISON: None. TECHNIQUE: CT scan of the abdomen and pelvis performed without intravenous or oral contrast. Images reviewed with lung, soft tissue, and bone windows. Reconstructed coronal and sagittal MPR images revi ewed. All images stored on PACS. All CT scanners at this facility use dose modulation, iterative reconstruction, and/or weight based d osing when appropriate to reduce radiation dose to as low as reasonably achievable (ALARA). [facility]: Dose Right [facility]: CareDose [facility]: Dose Right [facility]: Teradose 4D [facility]: [employer] RADIATION DOSE: CT Rad equipment meets quality standard of care and radiation dose reduction techniq ues were employed. CTDIvol: 24.8 mGy. DLP: 1317 mGy-cm.mGy. LIMITATIONS: None. FINDINGS: LOWER CHEST: The heart is enlarged. Atelectatic changes are seen at the bilateral lung ba ses. No pleural effusion. NON-CONTRASTED LIVER, SPLEEN, ADRENALS: Evaluation limited by lack of IV contrast. The liver is enla rged measuring 22.2 cm in craniocaudal dimension. There is a 6.0 x 3.1 cm hypodense lesion along the falciform ligament in the left hepatic lobe. The spleen is enlarged measuring 13.9 cm in craniocaud al dimension. PANCREAS: No peripancreatic inflammatory changes. GALLBLADDER: Distended. RIGHT KIDNEY AND URETER: Assessment for masses limited by lack of IV contrast. No significant calci fications. No hydronephrosis or hydroureter. LEFT KIDNEY AND URETER: Assessment for masses limited by lack of IV contrast. No significant calcif ications. No hydronephrosis or hydroureter. AORTA AND RETROPERITONEUM: No abdominal aortic aneurysm. No retroperitoneal masses or adenopathy. BOWEL AND PERITONEAL CAVITY: No dilated bowel loops. There is wall thickening at the colon. Small a mount of free fluid. No free air. APPENDIX: Normal. PELVIS, BLADDER, AND ABDOMINAL WALL:The urinary bladder is partially distended. The uterus is presen t. Small free fluid. There is a small fat containing umbilical hernia. There is diffuse subcutaneo us edema. BONES: Degenerative changes in the spine. IMPRESSION: 1. Hepatosplenomegaly. Cystic lesion at the left hepatic lobe, incompletely evaluated o n unenhanced CT. Ultrasound may help in further evaluation. 2. Distended gallbladder, please correlate with clinical concern for acute cholecystitis. 3. Wall thickening at the colon, may be seen with colitis. 4. Small ascites. 5. Diffuse subcutaneous edema. 6. Cardiomegaly. 7. Bibasilar atelectasis. COMMENT: Quality ID # [id number]: Final reports with documentation of one or more dose reduction techniques (e.g., Automated exposure control, adjustment of the mA and/or kV according to patient size, use of iterative reconstruction technique) TECHNICAL DOCUMENTATION: JOB ID: [id number] [employer]- All Rights Reserved
--- NOTE | 2017-03-09 01:56 | RADIOLOGY REPORT (SQ) ---
EXAM DESCRIPTION: CHEST SINGLE VIEW CLINICAL HISTORY: dyspnea COMPARISON: None. FINDINGS: Single frontal view of the chest. Cardiomegaly. Low lung volumes. Leads overlie the chest. Streaky bibasilar opacities. No pneumothorax. No definite pleural effusion. No displaced rib fractures identified. Upper abdominal soft tissues are unremarkable. IMPRESSION: 1. Cardiomegaly. 2. Streaky bibasilar opacities may be related to atelectasis.
--- NOTE | 2017-03-09 04:22 | RADIOLOGY REPORT (SQ) ---
EXAM DESCRIPTION: U/S ABDOMEN LTD W/DOPPLER CLINICAL HISTORY: ruq. distended GB on CT COMPARISON: None. TECHNIQUE: Real-time sonographic images of the right upper abdomen were obtained using a curved multihertz transducer. FINDINGS: The visualized portions of the pancreas are unremarkable. The visualized portions of the aorta and IVC are unremarkable. The liver has normal contour and echogenicity. Hepatopedal flow in the portal vein. Cystic structure within the falciform ligament measuring 7.6 x 3.6 x 3.4 cm no internal echogenicity or debris. Echogenic material within the gallbladder lumen some of which is posterior shadowing. These findings are compatible with gallstones with sludge. Normal gallbladder wall thickness. Negative reported sonographic Noel sign. Common bile duct measures 0.4 cm. The right kidney measures 8.6 cm in length. No hydronephrosis, solid renal mass, or shadowing calculi. IMPRESSION: 1. Cholelithiasis with gallbladder sludge. These findings could be seen with but are not diagnostic for acute cholecystitis. 2. 7.6 cm cystic structure along the falciform ligament. This structure has benign characteristics with no internal echogenicity. This may represent an exophytic hepatic cyst. Given size follow-up CT or ultrasound in 6-12 months recommended for stability.
[2017-03-09 04:23] LABS: CREATINE KINASE MB 4.76 ng/mL (<4.55)
[2017-03-09 04:26] LABS: TROPONIN I 0.14 ng/mL
[2017-03-09] MEDS ORDERED: PIPERACILLIN/TAZOBACTAM 2.25 GM VIAL IV ONE (04:35)
[2017-03-09] MEDS ORDERED: GLUCAGON,HUMAN RECOMB 1 MG INJ SUBCUT PRN ×2 (05:41→16:10)
[2017-03-09] MEDS ORDERED: ACETAMINOPHEN 325 MG TABLET PO PRN ×2 (05:41→14:33)
[2017-03-09] MEDS ORDERED: PROMETHAZINE HCL 25 MG TABLET PO PRN (05:41)
[2017-03-09] MEDS ORDERED: DEXTROSE 40% GEL 15 GM TUBE PO PRN ×6 (05:41→16:11)
[2017-03-09] MEDS ORDERED: DEXTROSE 50%-WATER 25 GM/50 ML DISP.SYRIN IV PRN ×6 (05:41→16:11)
--- NOTE | 2017-03-09 05:44 | PDOC CONSULTATION ---
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 Brought to ED by her friend and noted fx nose then sent home. Continued to have abdominal pains then now with diarrhea. Brought back to ED because of diffuse abdominal pains, Past Medical History Cardiac Medical History: Reports: Hypertension Denies: Coronary Artery Disease, Myocardial Infarction Pulmonary Medical History: Reports: Asthma Denies: Bronchitis, Chronic Obstructive Pulmonary Disease (COPD), Pneumonia Neurological Medical History: Denies: Seizures Endocrine Medical History: Reports: Diabetes Mellitus Type 1 Renal/ Medical History: Reports: End Stage Renal Disease Musculoskeltal Medical History: Denies: Arthritis Hematology: Reports: Anemia Past Surgical History Past Surgical History: Reports: Vascular Surgery - fistula placement Social History Smoking Status: Former Smoker Family History Family History: Reviewed & Not Pertinent Parental Family History Reviewed: Yes Children Family History Reviewed: No Sibling(s) Family History Reviewed.: No Medication/Allergy Home Medications: Albuterol Sulfate [Proair HFA] 1 - 2 puff IH Q4 PRN 11/28/16 Amlodipine Besylate 5 mg PO DAILY 11/28/16 Carvedilol [Coreg] 1 tab PO DAILY 11/28/16 Diazepam [Valium 5 mg Tablet] 5 mg PO PRN PRN 11/28/16 Gabapentin 100 mg PO TID 11/28/16 Insulin Glargine,Hum.rec.anlog [Lantus] 10 unit SQ DAILY 11/28/16 Insulin Lispro [Humalog] 10 unit SQ PRN PRN 11/28/16 Oxycodone HCl/Acetaminophen [Percocet 5-325 mg Tablet] 1 - 2 tab PO ASDIR PRN # 15 tablet 12/31/16 Allergies/Adverse Reactions: No Known Allergies Allergy (Verified 12/31/16 13:34) Review of Systems Constitutional: PRESENT: other - Boyfriend claims pt had fever , no chills Ears: PRESENT: other - decreased hearing Nose, Mouth, and Throat: PRESENT: other - pains in the nose from trauma Cardiovascular: PRESENT: other - no chest pains Respiratory: PRESENT: other - no dyspnea Gastrointestinal: PRESENT: abdominal pain, diarrhea, nausea, vomiting Genitourinary: PRESENT: other - no dysuria Musculoskeletal: PRESENT: other - diffuse abdominal pains since bumping her abdomen on the floor Integumentary: PRESENT: other - no rash Neurological: PRESENT: other - no seizures Psychiatric: PRESENT: anxiety Hematologic/Lymphatic: PRESENT: other - no easy bruising Physical Exam Vital Signs: Temp Pulse Resp BP Pulse Ox 99.0 F 100 10 L 106/68 96 03/08/17 16:14 03/08/17 16:14 03/09/17 03:31 03/09/17 03:31 03/09/17 03:31 General appearance: PRESENT: mild distress, obese Head exam: PRESENT: atraumatic Mouth exam: PRESENT: dry mucosa Neck exam: PRESENT: full ROM Respiratory exam: PRESENT: clear to auscultation soniya Cardiovascular exam: PRESENT: RRR Pulses: PRESENT: normal radial pulses Vascular exam: PRESENT: normal capillary refill GI/Abdominal exam: PRESENT: soft, tenderness - diffuse tenderness Rectal exam: PRESENT: deferred Extremities exam: PRESENT: other - rt bka stump healed still with valdez Neurological exam: PRESENT: awake, oriented to person, oriented to place, oriented to time, oriented to situation Psychiatric exam: PRESENT: agitated, anxious Skin exam: PRESENT: normal color, warm Results Impressions: Abdomen/Pelvis CT 03/08/17 23:00 IMPRESSION: 1. Hepatosplenomegaly. Cystic lesion at the left hepatic lobe, incompletely evaluated on unenhanced CT. Ultrasound may help in further evaluation. 2. Distended gallbladder, please correlate with clinical concern for acute cholecystitis. 3. Wall thickening at the colon, may be seen with colitis. 4. Small ascites. 5. Diffuse subcutaneous edema. 6. Cardiomegaly. 7. Bibasilar atelectasis. Abdomen Ultrasound 03/09/17 00:34 IMPRESSION: 1. Cholelithiasis with gallbladder sludge. These findings could be seen with but are not diagnostic for acute cholecystitis. 2. 7.6 cm cystic structure along the falciform ligament. This structure has benign characteristics with no internal echogenicity. This may represent an exophytic hepatic cyst. Given size follow-up CT or ultrasound in 6-12 months recommended for stability. Chest X-Ray 03/09/17 01:20 IMPRESSION: 1. Cardiomegaly. 2. Streaky bibasilar opacities may be related to atelectasis. Assessment & Plan - Time Time Spent: 30 to 50 Minutes - Plan Summary Plan Summary: Has diffuse abdominal pains/tenderness after trauma, Not convince all symptoms point to Cholecystitis. Suggest HIDA scan to be more definitive of Acute Cholecystitis Check stools for C Diff
[2017-03-09 06:45] LABS: COLOR,URINE LIGHT YELLOW
[2017-03-09 06:46] LABS: APPEARANCE,URINE TURBID; BILIRUBIN,URINE NEGATIVE (NEGATIVE); GLUCOSE, URINE NEGATIVE (NEGATIVE); KETONES,URINE NEGATIVE (NEGATIVE); URINE SPECIFIC GRAVITY 1.036
[2017-03-09 06:47] LABS: LEUKOCYTE ESTERASE,URINE NEGATIVE (NEGATIVE); NITRITE,URINE NEGATIVE (NEGATIVE); PROTEIN,URINE NEGATIVE (NEGATIVE); UROBILINOGEN,URINE NEGATIVE mg/dL (<2.0)
[2017-03-09] MEDS: HEPARIN SOD (PORCINE) 5,000 UNIT/ML 1 ML SYRINGE SUBCUT SCH ×3 (06:51→22:58)
--- NOTE | 2017-03-09 07:49 | EKG REPORT ---
SEVERITY:- ABNORMAL ECG - SINUS RHYTHM PROBABLE LEFT ATRIAL ABNORMALITY LEFT AXIS DEVIATION ABNORMAL T, CONSIDER ISCHEMIA, LATERAL LEADS PROLONGED QT INTERVAL : Confirmed by: Shen Crump MD 09-Mar-2017 07:49:17
--- NOTE | 2017-03-09 09:22 | PDOC H&P ---
History of Present Illness Admission Date/PCP: 03/09/17 05:11 MARTA CHEW PA-C History of Present Illness: History is primarily obtained from her significant other who is at bedside patient has received Dilaudid and is quite lethargic when I see her additionally she is quite hard of hearing making her examination slightly difficult. He reports that on Monday patient fell on her affiliate face and belly. He reports that she would present to the emergency department where she was diagnosed with an acute fracture of her nasal bone. Patient then continued to have ongoing abdominal pain and subsequent nausea, vomiting, and diarrhea. He is unsure whether she has been having fevers or chills but suspects that she may. He reports that her stool is brown and does smell bad. In that she is having copious stools daily. Patient reports that she has had nausea vomiting every time she eats. Her pain is quite diffuse and surgery is at bedside and examined her while I am there. She is referred to the hospital service for Sirs and nausea, vomiting, diarrhea and abdominal pain. Patient's medications are currently undergoing reconciliation. Current list is automatically generated by [employer] and does not reflect an accurate description of her medications. Due to the urgent/emergent nature of her condition, she is admitted without a full list. Bedside review of medications provided reveal the patient is taking gabapentin, Soma beer, Zofran, Norvasc, Provera, Coreg, she has empty bottles of Valium, Flexeril, and Dilaudid. Past Medical History Cardiac Medical History: Reports: Hyperlipidema, Hypertension Denies: Coronary Artery Disease, Myocardial Infarction Pulmonary Medical History: Reports: Asthma Denies: Bronchitis, Chronic Obstructive Pulmonary Disease (COPD), Pneumonia Neurological Medical History: Denies: Seizures Endocrine Medical History: Reports: Diabetes Mellitus Type 1, Obesity Renal/ Medical History: Reports: End Stage Renal Disease Musculoskeltal Medical History: Denies: Arthritis Hematology: Reports: Anemia Past Surgical History Past Surgical History: Reports: Vascular Surgery - fistula placement, Other - Amputation right lower extremity Social History Smoking Status: Former Smoker Frequency of Alcohol Use: None Hx Recreational Drug Use: No Hx Prescription Drug Abuse: No - Advance Directive Resuscitation Status: Full Code Surrogate healthcare decision maker:: Mario Faria, significant other Family History Family History: CAD, DM, Hypertension Parental Family History Reviewed: Yes Children Family History Reviewed: Yes Sibling(s) Family History Reviewed.: Yes Medication/Allergy Allergies/Adverse Reactions: No Known Allergies Allergy (Verified 12/31/16 13:34) Review of Systems ROS unobtainable: Due to mental status Physical Exam Vital Signs: Temp Pulse Resp BP Pulse Ox 98.1 F 100 13 144/81 H 92 03/09/17 07:44 03/08/17 16:14 03/09/17 07:00 03/09/17 05:25 03/09/17 07:00 General appearance: PRESENT: mild distress, morbidly obese, well-developed, well -nourished Head exam: PRESENT: atraumatic, normocephalic Eye exam: PRESENT: conjunctiva pink, EOMI, PERRLA. ABSENT: scleral icterus Ear exam: PRESENT: normal external ear exam Mouth exam: PRESENT: moist, tongue midline Neck exam: ABSENT: JVD, lymphadenopathy, thyromegaly, tracheal deviation Respiratory exam: PRESENT: rales. ABSENT: rhonchi, wheezes Cardiovascular exam: PRESENT: RRR, +S1, +S2, systolic murmur. ABSENT: diastolic murmur, rubs Pulses: PRESENT: normal dorsalis pedis pul Vascular exam: PRESENT: normal capillary refill GI/Abdominal exam: PRESENT: distended, hypoactive bowel sounds, normal bowel sounds, soft, tenderness - Diffuse. ABSENT: guarding, mass, Noel's sign, organolmegaly, rebound Rectal exam: PRESENT: deferred Extremities exam: PRESENT: full ROM, other - Stump edema. ABSENT: calf tenderness, clubbing Neurological exam: PRESENT: altered Skin exam: PRESENT: dry, intact, warm, other - Staple still present in right lower stump. ABSENT: cyanosis, rash Results Laboratory Results: 03/09/17 05:47 Urine Color LIGHT YELLOW Urine Appearance TURBID Urine pH 5.0 Ur Specific [place] 1.036 Urine Protein NEGATIVE Urine Glucose (UA) NEGATIVE Urine Ketones NEGATIVE Urine Blood SMALL H Urine Nitrite NEGATIVE Ur Leukocyte Esterase NEGATIVE Urine WBC (Auto) >182 Urine RBC (Auto) >182 Impressions: Abdomen/Pelvis CT 03/08/17 23:00 IMPRESSION: 1. Hepatosplenomegaly. Cystic lesion at the left hepatic lobe, incompletely evaluated on unenhanced CT. Ultrasound may help in further evaluation. 2. Distended gallbladder, please correlate with clinical concern for acute cholecystitis. 3. Wall thickening at the colon, may be seen with colitis. 4. Small ascites. 5. Diffuse subcutaneous edema. 6. Cardiomegaly. 7. Bibasilar atelectasis. Abdomen Ultrasound 03/09/17 00:34 IMPRESSION: 1. Cholelithiasis with gallbladder sludge. These findings could be seen with but are not diagnostic for acute cholecystitis. 2. 7.6 cm cystic structure along the falciform ligament. This structure has benign characteristics with no internal echogenicity. This may represent an exophytic hepatic cyst. Given size follow-up CT or ultrasound in 6-12 months recommended for stability. Chest X-Ray 03/09/17 01:20 IMPRESSION: 1. Cardiomegaly. 2. Streaky bibasilar opacities may be related to atelectasis. Assessment & Plan - Diagnosis (1) SIRS (systemic inflammatory response syndrome) Is this a current diagnosis for this admission?: Yes Plan: Patient meets criteria for SIRS which is concerning for possible intra- abdominal pathology (2) End-stage renal disease on hemodialysis Is this a current diagnosis for this admission?: Yes Plan: Consult nephrology for hemodialysis (3) Hypertension Is this a current diagnosis for this admission?: Yes Plan: Continue Coreg and Norvasc (4) Cholecystitis Is this a current diagnosis for this admission?: Yes Plan: Concern for underlying cholecystitis. Will obtain a HIDA scan (5) ESRD (end stage renal disease) Is this a current diagnosis for this admission?: Yes (6) Elevated troponin Is this a current diagnosis for this admission?: Yes Plan: Continue to plot troponin Likely elevated secondary to end-stage renal disease (7) Diarrhea Qualifiers: Diarrhea type: unspecified type Qualified Code(s): R19.7 - Diarrhea, unspecified Is this a current diagnosis for this admission?: Yes Plan: Obtain specimen for C. difficile, fecal leukocytes, culture, and occult blood Patient denies raw or undercooked meat or travel outside the country (8) Severe obesity (BMI 35.0-39.9) with comorbidity Is this a current diagnosis for this admission?: Yes - Time Time Spent: 30 to 50 Minutes Medications reviewed and adjusted accordingly: Yes
[2017-03-09] MEDS ORDERED: PIPERACILLIN SODIUM/TAZOBACTAM 2.25 GM in NORMAL SALINE 50 ML IV ONE (10:00)
[2017-03-09] MEDS ORDERED: PANTOPRAZOLE SODIUM 40 MG VIAL IV SCH (10:00)
--- NOTE | 2017-03-09 10:59 | RADIOLOGY REPORT (SQ) ---
EXAM DESCRIPTION: NM HIDA SCAN COMPLETED DATE/TIME: 03/09/2017 9:03 am REASON FOR STUDY: abd pain COMPARISON: Abdominal ultrasound dated 03/09/[address] scan dated 03/08/2017 RADIONUCLIDE AND DOSE: DOSAGE RADIONUCLIDE: 5.38 millicuries Tc99m Mebrofenin. DOSAGE MORPHINE: Not required. The route of agent administration: Intravenous TECHNIQUE: Serial imaging right upper quadrant up to 60 minutes following injection of radionuclide. Patient imaged AP and Right Lateral. LIMITATIONS: Study was terminated before completion due to pain. FINDINGS: LIVER: Normal visualization without areas of photopenia. INTRA-HEPATIC BILE DUCTS: Temporal visualization normal. No dilatation. COMMON BILE DUCT: Normal without dilatation or delayed visualization. GALLBLADDER: Normal visualization. OTHER: No small bowel activity was identified. IMPRESSION: Limited study as noted above. Gallbladder activity was identified. No evidence for cys tic duct obstruction is seen. No activity was identified within the small small bowel presumably rel ated to early termination of the study. TECHNICAL DOCUMENTATION: JOB ID: [id number] [employer]- All Rights Reserved
[2017-03-09 11:28] LABS: CREATINE KINASE MB 4.02 ng/mL (<4.55); TROPONIN I 0.103 ng/mL
[2017-03-09] MEDS ORDERED: DEXTROSE 5%-NORMAL SALINE 1,000 ML IV PRN ×3 (13:55→16:06)
[2017-03-09] MEDS ORDERED: SEVELAMER HCL 800 MG PO PRN (14:05)
[2017-03-09] MEDS ORDERED: (PENDING PHARMACY ID) (Ondansetron Hcl [Zofran 4 Mg Tablet] 4 MG) PO PRN (14:05)
[2017-03-09] MEDS ORDERED: ONDANSETRON 4 MG TAB.RAPDIS PO PRN (14:58)
[2017-03-09] MEDS ORDERED: PIPERACILLIN SODIUM/TAZOBACTAM 2.25 GM in NORMAL SALINE 50 ML IV SCH ×2 (15:00→18:00)
[2017-03-09] MEDS ORDERED: SEVELAMER HCL 400 MG TABLET PO PRN (15:02)
[2017-03-09] MEDS ORDERED: SUCRALFATE 1 GM TABLET PO SCH (16:00)
[2017-03-09] MEDS ORDERED: LORAZEPAM INJ 2 MG/1 ML VIAL IV PRN (16:08)
[2017-03-09] MEDS ORDERED: INSULIN LISPRO 100 UNIT/ML 3 ML VIAL SUBCUT PRN (16:11)
[2017-03-09] MEDS ORDERED: GLUCAGON,HUMAN RECOMB 1 MG INJ IM PRN (16:11)
--- NOTE | 2017-03-09 16:14 | Progress Note ---
Provider Note Provider Note: Patient was admitted earlier by Dr. Bose. Patient presentation is more consistent with a possible gastroenteritis. Surgery does not feel this is the patient's presentation is consistent with cholecystitis. Will continue supportive care with IV hydration, antiemetics and pain medication. 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 Plan is for hemodialysis tomorrow.
[2017-03-09] MEDS ORDERED: SEVELAMER HCL 400 MG TABLET PO SCH (17:00)
[2017-03-09] MEDS ORDERED: SEVELAMER HCL 2400 MG PO SCH (17:00)
--- NOTE | 2017-03-09 17:20 | PDOC PROGRESS REPORT ---
Subjective Progress Note for:: 03/09/17 Subjective:: Abdominal pain Reason For Visit: ABDOMINAL PAIN, N/V/D, ESRD Physical Exam Vital Signs: Temp Pulse Resp BP Pulse Ox 98.1 F 100 16 139/81 H 96 03/09/17 07:44 03/08/17 16:14 03/09/17 16:00 03/09/17 15:00 03/09/17 16:00 General appearance: PRESENT: no acute distress, disheveled Respiratory exam: PRESENT: clear to auscultation soniya Cardiovascular exam: PRESENT: RRR GI/Abdominal exam: PRESENT: other - Mildly distended, diffuse abdominal tenderness to palpation perhaps more so in the epigastric region. No peritoneal signs. Results Laboratory Results: 03/09/17 05:47 Urine Color LIGHT YELLOW Urine Appearance TURBID Urine pH 5.0 Ur Specific [place] 1.036 Urine Protein NEGATIVE Urine Glucose (UA) NEGATIVE Urine Ketones NEGATIVE Urine Blood SMALL H Urine Nitrite NEGATIVE Ur Leukocyte Esterase NEGATIVE Urine WBC (Auto) >182 Urine RBC (Auto) >182 03/09/17 03/09/17 10:48 10:48 Creatine Kinase 148 H CK-MB (CK-2) 4.02 Troponin I 0.103 Impressions: Abdomen/Pelvis CT 03/08/17 23:00 IMPRESSION: 1. Hepatosplenomegaly. Cystic lesion at the left hepatic lobe, incompletely evaluated on unenhanced CT. Ultrasound may help in further evaluation. 2. Distended gallbladder, please correlate with clinical concern for acute cholecystitis. 3. Wall thickening at the colon, may be seen with colitis. 4. Small ascites. 5. Diffuse subcutaneous edema. 6. Cardiomegaly. 7. Bibasilar atelectasis. Hepatobiliary Scan Nuclear Medicine 03/09/17 00:00 IMPRESSION: Limited study as noted above. Gallbladder activity was identified. No evidence for cystic duct obstruction is seen. No activity was identified within the small small bowel presumably related to early termination of the study. Abdomen Ultrasound 03/09/17 00:34 IMPRESSION: 1. Cholelithiasis with gallbladder sludge. These findings could be seen with but are not diagnostic for acute cholecystitis. 2. 7.6 cm cystic structure along the falciform ligament. This structure has benign characteristics with no internal echogenicity. This may represent an exophytic hepatic cyst. Given size follow-up CT or ultrasound in 6-12 months recommended for stability. Chest X-Ray 03/09/17 01:20 IMPRESSION: 1. Cardiomegaly. 2. Streaky bibasilar opacities may be related to atelectasis. Assessment & Plan - Diagnosis (1) Gastroenteritis Is this a current diagnosis for this admission?: Yes Plan: Possible colitis. HIDA scan demonstrated gallbladder filling therefore acute cholecystitis is ruled out. Patient has a cyst on her liver vs falciform ligament that is in the region of her epigastric tenderness. If she has clinical suspicion for a liver or falciform ligament abscess, will plan percutaneous drainage. A period of observation in the hospital will tell. For now we will treat and work her up for her for gastroenteritis possible colitis. Of note surgery was consulted for central venous access when she did not have peripheral access, however ER was able to obtain peripheral access that appears to be working well. Would rather avoid central venous access if not needed in this dialysis dependent patient.
[2017-03-09] MEDS ORDERED: (PENDING PHARMACY ID) (Cyclobenzaprine Hcl [Flexeril 5 Mg Tablet] 5 MG) PO SCH (18:00)
[2017-03-09] MEDS ORDERED: DIAZEPAM 5 MG TABLET PO SCH (18:00)
[2017-03-09] MEDS: METOCLOPRAMIDE HCL INJ/PF 10 MG/2 ML SDV IV SCH (18:35)
[2017-03-09] MEDS: HYDROMORPHONE HCL INJ/PF 2 MG/ML AMPULE IV PRN (18:35)
[2017-03-09] MEDS: PANTOPRAZOLE SODIUM 40 MG VIAL IV SCH (18:35)
[2017-03-09] MEDS ORDERED: GABAPENTIN 100 MG CAPSULE PO SCH (22:00)
[2017-03-09] MEDS ORDERED: CYCLOBENZAPRINE HCL 10 MG TABLET PO SCH (22:00)
[2017-03-09] MEDS ORDERED: CARVEDILOL 12.5 MG TABLET PO SCH (22:00)
[2017-03-09] MEDS ORDERED: HYDROMORPHONE HCL 2 MG TABLET PO SCH (22:00)
--- NOTE | 2017-03-09 23:34 | PDOC CONSULTATION ---
Consultation Consult Date: 03/09/17 Consult reason:: esrd History of Present Illness Admission Date/PCP: 03/09/17 05:11 MARTA CHEW PA-C Patient complains of: abdominal pain History of Present Illness: Patient is a 46 year old female with past history of CKD on dialysis, hypertension and recent BKA. History is primarily obtained from her significant other who is at bedside patient has received Dilaudand is lethargic after receiving dilaudid and is focused on her abdominal pain. Significant other reports that on Monday patient fell on her affiliate face and belly. He reports that she would present to the emergency department where she was diagnosed with an acute fracture of her nasal bone. Patient then continued to have ongoing abdominal pain and subsequent nausea, vomiting, and diarrhea. He was unsure of how long she was having the diarrhea. patient was not able to answer questions. Before seeing the patient she was already seen by surgery and hospitalist services. She had an abdominal ultrasound and a chest CT. She currently waiting for a bed for admission at the time of evaluation. She denies chest pain or SOB. Past Medical History Cardiac Medical History: Reports: Hyperlipidemia Denies: Coronary Artery Disease, Myocardial Infarction Pulmonary Medical History: Reports: Asthma Denies: Bronchitis, Chronic Obstructive Pulmonary Disease (COPD), Pneumonia Neurological Medical History: Denies: Seizures Endocrine Medical History: Reports: Diabetes Mellitus Type 1, Obesity Renal/ Medical History: Reports: End Stage Renal Disease Musculoskeltal Medical History: Denies: Arthritis Past Surgical History Past Surgical History: Reports: Vascular Surgery - fistula placement, Other - Amputation right lower extremity Social History Smoking Status: Former Smoker Last Time Smoked: 1992 Frequency of Alcohol Use: None Hx Recreational Drug Use: No Drugs: None Hx Prescription Drug Abuse: No - Advance Directive Resuscitation Status: Full Code Family History Parental Family History Reviewed: No Children Family History Reviewed: NA Sibling(s) Family History Reviewed.: NA Medication/Allergy Home Medications: Albuterol Sulfate [Proair HFA] 1 puff IH Q4HP PRN 03/09/17 Amlodipine Besylate [Norvasc 5 mg Tablet] 5 mg PO DAILY 03/09/17 Aspirin [Aspirin 81 mg Chewable Tablet] 81 mg PO DAILY 03/09/17 Carvedilol [Coreg 25 mg Tablet] 25 mg PO Q12 03/09/17 Cyclobenzaprine HCl [Flexeril 5 mg Tablet] 5 mg PO TID 03/09/17 Diazepam [Valium 5 mg Tablet] 5 mg PO BID 03/09/17 Folic Acid/Vitamin B Comp W-C [Renavit Tablet] 0.8 mg PO DAILY 03/09/17 Gabapentin [Neurontin 100 mg Capsule] 100 mg PO Q8 03/09/17 Hydromorphone HCl [Dilaudid 2 mg Tablet] 2 mg PO Q8 03/09/17 Medroxyprogesterone Acet [Provera 10 mg Tablet] 10 mg PO DAILY 03/09/17 Ondansetron HCl [Zofran 4 mg Tablet] 4 mg PO BIDP PRN 03/09/17 Sevelamer HCl [Renagel] 2,400 mg PO MEALS 03/09/17 Sevelamer HCl [Renagel] 800 mg PO ASDIR PRN 03/09/17 Allergies/Adverse Reactions: No Known Allergies Allergy (Verified 12/31/16 13:34) Review of Systems Constitutional: PRESENT: anorexia, fatigue, weakness Ears: PRESENT: hearing changes Cardiovascular: ABSENT: chest pain, dyspnea on exertion Respiratory: ABSENT: dyspnea Gastrointestinal: PRESENT: abdominal pain, diarrhea, nausea, vomiting Musculoskeletal: PRESENT: muscle weakness Neurological: PRESENT: confusion, memory loss, weakness Physical Exam Vital Signs: Temp Pulse Resp BP Pulse Ox 98.7 F 110 H 19 141/88 H 100 03/09/17 17:10 03/09/17 17:10 03/09/17 17:10 03/09/17 17:10 03/09/17 17:10 Intake & Output 03/08/17 03/09/17 03/10/17 06:59 06:59 06:59 Intake Total 210 Balance 210 Weight 105.2 kg 105.1 kg General appearance: PRESENT: disheveled, hard of hearing, obese, severe distress - -was in pain, well-developed, well-nourished Neck exam: PRESENT: full ROM. ABSENT: JVD, tracheal deviation Respiratory exam: PRESENT: clear to auscultation soniya. ABSENT: accessory muscle use, crackles, rhonchi, wheezes Cardiovascular exam: PRESENT: RRR, +S1, +S2 GI/Abdominal exam: PRESENT: guarding, hyperactive bowel sounds, rebound, soft, tenderness. ABSENT: mass Extremities exam: PRESENT: other - -has BKA of right leg. ABSENT: pedal edema, tenderness Neurological exam: PRESENT: altered, awake. ABSENT: oriented to person, oriented to place, oriented to time, oriented to situation Psychiatric exam: PRESENT: agitated, anxious Results Laboratory Results: 03/09/17 05:47 Urine Color LIGHT YELLOW Urine Appearance TURBID Urine pH 5.0 Ur Specific [place] 1.036 Urine Protein NEGATIVE Urine Glucose (UA) NEGATIVE Urine Ketones NEGATIVE Urine Blood SMALL H Urine Nitrite NEGATIVE Ur Leukocyte Esterase NEGATIVE Urine WBC (Auto) >182 Urine RBC (Auto) >182 03/09/17 03/09/17 03/09/17 10:48 10:48 18:00 Creatine Kinase 148 H CK-MB (CK-2) 4.02 Troponin I 0.103 0.095 03/09/17 03/09/17 18:00 18:00 Creatine Kinase 124 CK-MB (CK-2) 3.04 Troponin I Impressions: Abdomen/Pelvis CT 03/08/17 23:00 IMPRESSION: 1. Hepatosplenomegaly. Cystic lesion at the left hepatic lobe, incompletely evaluated on unenhanced CT. Ultrasound may help in further evaluation. 2. Distended gallbladder, please correlate with clinical concern for acute cholecystitis. 3. Wall thickening at the colon, may be seen with colitis. 4. Small ascites. 5. Diffuse subcutaneous edema. 6. Cardiomegaly. 7. Bibasilar atelectasis. Hepatobiliary Scan Nuclear Medicine 03/09/17 00:00 IMPRESSION: Limited study as noted above. Gallbladder activity was identified. No evidence for cystic duct obstruction is seen. No activity was identified within the small small bowel presumably related to early termination of the study. Abdomen Ultrasound 03/09/17 00:34 IMPRESSION: 1. Cholelithiasis with gallbladder sludge. These findings could be seen with but are not diagnostic for acute cholecystitis. 2. 7.6 cm cystic structure along the falciform ligament. This structure has benign characteristics with no internal echogenicity. This may represent an exophytic hepatic cyst. Given size follow-up CT or ultrasound in 6-12 months recommended for stability. Chest X-Ray 03/09/17 01:20 IMPRESSION: 1. Cardiomegaly. 2. Streaky bibasilar opacities may be related to atelectasis. Assessment & Plan - Diagnosis (1) Cholecystitis Is this a current diagnosis for this admission?: Yes Plan: currently being assessed by hospitalist services (2) ESRD (end stage renal disease) Is this a current diagnosis for this admission?: Yes Plan: No indication for dialysis today. Potassium is stable and patient is not fluid overloaded. Will set her up for dialysis for tomorrow. (3) Elevated troponin Is this a current diagnosis for this admission?: Yes Plan: currently trending down, most likely elevated due to ESRD. (4) Hypertension Is this a current diagnosis for this admission?: Yes Plan: blood pressure mostly controlled, occassional higher ones possibly due to the pain she is in. (5) Anemia Qualifiers: Chronic kidney disease stage: on chronic dialysis Plan: will re-evaluate tomorrow, if below 10 will consider giving epogen during dialysis treatment. (6) SIRS (systemic inflammatory response syndrome) Is this a current diagnosis for this admission?: Yes Plan: currently being worked up.
[2017-03-10 01:19] LABS: CREATINE KINASE MB 2.7 ng/mL (<4.55); TROPONIN I 0.098 ng/mL
[2017-03-10] MEDS: HYDROMORPHONE HCL INJ/PF 2 MG/ML AMPULE IV PRN ×3 (01:30→23:30)
[2017-03-10] MEDS: HEPARIN SOD (PORCINE) 5,000 UNIT/ML 1 ML SYRINGE SUBCUT SCH ×3 (05:44→23:31)
[2017-03-10] MEDS: PANTOPRAZOLE SODIUM 40 MG VIAL IV SCH ×2 (05:45→18:49)
[2017-03-10 06:38] LABS: BLOOD UREA NITROGEN 69 mg/dL (7-20); CALCIUM 8.1 mg/dL (8.4-10.2); CHLORIDE 100 mmol/L (98-107); GLUCOSE 83 mg/dL (75-110); POTASSIUM 4.7 mmol/L (3.6-5.0)
[2017-03-10 06:55] LABS: ANION GAP 19 (5-19); CARBON DIOXIDE 22 mmol/L (22-30); SODIUM 141.2 mmol/L (137-145)
[2017-03-10 07:00] LABS: ABSOLUTE BASOPHILS # (AUTO) 0.1 10^3/uL (0.0-0.2); ABSOLUTE EOSINOPHILS # (AUTO) 0.3 10^3/uL (0.0-0.6); ABSOLUTE MONOCYTES (AUTO) 0.7 10^3/uL (0.1-1.4); ABSOLUTE NEUT (AUTO) 7.1 10^3/uL (1.7-8.2); BASOPHILS % (AUTO) 0.9 % (0-2); EOSINOPHILS % (AUTO) 3.2 % (0-6); HEMATOCRIT 22.4 % (36.0-47.0); LYMPHOCYTES % (AUTO) 10.9 % (13-45); MEAN CORPUSCULAR HEMOGLOBIN 31.2 pg (27.0-33.4); MEAN CORPUSCULAR HGB CONC 34.4 g/dL (32.0-36.0); MEAN CORPUSCULAR VOLUME 91 fl (80-97); PLATELET COUNT 195 10^3/uL (150-450); RED BLOOD COUNT 2.46 10^6/uL (3.72-5.28); RED CELL DISTRIBUTION WIDTH 15.8 % (11.5-14.0); TOTAL CELLS COUNTED % (AUTO) 100 %; WHITE BLOOD COUNT 9.2 10^3/uL (4.0-10.5)
[2017-03-10 07:22] LABS: HEMOGLOBIN 7.7 g/dL (12.0-15.5)
[2017-03-10] MEDS ORDERED: FOLIC ACID/VITAMIN B COMP W-C CAPSULE PO SCH (10:00)
[2017-03-10] MEDS ORDERED: MEDROXYPROGESTERONE ACET 10 MG TABLET PO SCH (10:00)
[2017-03-10] MEDS ORDERED: (PENDING PHARMACY ID) (Folic Acid/Vitamin B Comp W-C [Renavit Tablet] 0.8 MG) PO SCH (10:00)
[2017-03-10] MEDS ORDERED: AMLODIPINE BESYLATE 5 MG TABLET PO SCH (10:00)
[2017-03-10] MEDS ORDERED: EPOETIN ALFA INJ 20,000 UNIT/1 ML VIAL (ONCOLOGY) IV ONE (10:30)
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
[2017-03-10] MEDS: METOCLOPRAMIDE HCL INJ/PF 10 MG/2 ML SDV IV SCH ×3 (12:41→18:49)
[2017-03-10 15:10] LABS: ABSOLUTE BASOPHILS # (AUTO) 0.1 10^3/uL (0.0-0.2); ABSOLUTE EOSINOPHILS # (AUTO) 0.2 10^3/uL (0.0-0.6); ABSOLUTE LYMPHOCYTES (AUTO) 0.6 10^3/uL (0.5-4.7); ABSOLUTE MONOCYTES (AUTO) 0.8 10^3/uL (0.1-1.4); ABSOLUTE NEUT (AUTO) 9.4 10^3/uL (1.7-8.2); BASOPHILS % (AUTO) 0.7 % (0-2); EOSINOPHILS % (AUTO) 2.2 % (0-6); HEMATOCRIT 25.8 % (36.0-47.0); HEMOGLOBIN 8.4 g/dL (12.0-15.5); LYMPHOCYTES % (AUTO) 5.2 % (13-45); MEAN CORPUSCULAR HEMOGLOBIN 29.6 pg (27.0-33.4); MEAN CORPUSCULAR HGB CONC 32.7 g/dL (32.0-36.0); MEAN CORPUSCULAR VOLUME 91 fl (80-97); PLATELET COUNT 218 10^3/uL (150-450); RED BLOOD COUNT 2.85 10^6/uL (3.72-5.28); RED CELL DISTRIBUTION WIDTH 15.7 % (11.5-14.0); SEGMENTED NEUTROPHILS % (AUTO) 84.9 % (42-78); TOTAL CELLS COUNTED % (AUTO) 100 %; WHITE BLOOD COUNT 11.1 10^3/uL (4.0-10.5)
[2017-03-10] MEDS ORDERED: LIDOCAINE 1% INJ-PF (10 MG/ML) 30 ML SDV ONE (15:10)
--- NOTE | 2017-03-10 17:23 | RADIOLOGY REPORT (SQ) ---
EXAM DESCRIPTION: CHEST SINGLE VIEW COMPLETED DATE/TIME: 03/10/2017 5:14 pm REASON FOR STUDY: central line placement COMPARISON: None. NUMBER OF VIEWS: One view. TECHNIQUE: Single frontal radiographic view of the chest acquired. LIMITATIONS: None. FINDINGS: LUNGS AND PLEURA: No opacities, masses or pneumothorax. No pleural effusion. MEDIASTINUM AND HILAR STRUCTURES: No masses or contour abnormality. HEART AND VASCULATURE: Cardiac enlargement. Mild vascular congestion. BONES: No acute findings. HARDWARE: Central line with the tip at the level of the superior vena cava. OTHER: No other significant finding. IMPRESSION: PLACEMENT OF CENTRAL LINE. NO PNEUMOTHORAX. OTHERWISE NO CHANGE. TECHNICAL DOCUMENTATION: JOB ID: [id number] [employer]- All Rights Reserved
[2017-03-10] MEDS: PROMETHAZINE HCL INJ 25 MG/1 ML VIAL IV PRN (18:53)
--- NOTE | 2017-03-10 19:16 | PDOC PROGRESS REPORT ---
Subjective Progress Note for:: 03/10/17 Subjective:: Patient presented with abdominal pain but now states that she is fine and would like to go home. Patient has had some diarrhea however stool was not sent for cdiff. Patient has not had anymore vomiting per the nurse. Reason For Visit: ABDOMINAL PAIN, N/V/D, ESRD Physical Exam Vital Signs: Temp Pulse Resp BP Pulse Ox 99.5 F 107 H 20 146/76 H 90 L 03/10/17 16:57 03/10/17 16:57 03/10/17 16:57 03/10/17 16:57 03/10/17 16:57 Intake & Output 03/09/17 03/10/17 03/11/17 06:59 06:59 06:59 Intake Total 1521 0 Output Total 0 Balance 1521 0 Weight 105.2 kg 102.9 kg General appearance: PRESENT: no acute distress, obese Head exam: PRESENT: normocephalic Eye exam: PRESENT: EOMI. ABSENT: scleral icterus Mouth exam: PRESENT: moist Teeth exam: PRESENT: poor dentation Neck exam: PRESENT: full ROM. ABSENT: carotid bruit, JVD, lymphadenopathy, thyromegaly Cardiovascular exam: PRESENT: RRR. ABSENT: diastolic murmur, rubs, systolic murmur GI/Abdominal exam: PRESENT: normal bowel sounds, soft. ABSENT: distended, guarding, mass, organolmegaly, rebound, tenderness Rectal exam: PRESENT: deferred Extremities exam: PRESENT: right BKA Neurological exam: PRESENT: alert, awake, oriented to person, oriented to place , oriented to situation, other - hard of hearing. ABSENT: motor sensory deficit Psychiatric exam: PRESENT: appropriate affect, normal mood. ABSENT: homicidal ideation, suicidal ideation Skin exam: PRESENT: dry, intact, warm. ABSENT: cyanosis, rash Results Laboratory Results: 03/10/17 14:53 03/10/17 06:10 03/10/17 03/10/17 03/10/17 06:10 06:10 06:45 WBC Cancelled 9.2 RBC Cancelled 2.46 L Hgb Cancelled 7.7 L D Hct Cancelled 22.4 L MCV Cancelled 91 MCH Cancelled 31.2 MCHC Cancelled 34.4 RDW Cancelled 15.8 H Plt Count Cancelled 195 Seg Neutrophils % Cancelled 77.0 Lymphocytes % Cancelled 10.9 L Monocytes % Cancelled 8.0 Eosinophils % Cancelled 3.2 Basophils % Cancelled 0.9 Absolute Neutrophils Cancelled 7.1 Absolute Lymphocytes Cancelled 1.0 Absolute Monocytes Cancelled 0.7 Absolute Eosinophils Cancelled 0.3 Absolute Basophils Cancelled 0.1 Sodium 141.2 Potassium 4.7 Chloride 100 Carbon Dioxide 22 Anion Gap 19 BUN 69 H Creatinine 12.21 H Est GFR ( Amer) 4 L Est GFR (Non-Af Amer) 3 L Glucose 83 Calcium 8.1 L Blood Type Antibody Screen 03/10/17 03/10/17 06:45 14:53 WBC 11.1 H RBC 2.85 L Hgb 8.4 L Hct 25.8 L MCV 91 MCH 29.6 MCHC 32.7 RDW 15.7 H Plt Count 218 Seg Neutrophils % 84.9 H Lymphocytes % 5.2 L Monocytes % 7.0 Eosinophils % 2.2 Basophils % 0.7 Absolute Neutrophils 9.4 H Absolute Lymphocytes 0.6 Absolute Monocytes 0.8 Absolute Eosinophils 0.2 Absolute Basophils 0.1 Sodium Potassium Chloride Carbon Dioxide Anion Gap BUN Creatinine Est GFR ( Amer) Est GFR (Non-Af Amer) Glucose Calcium Blood Type O POSITIVE Antibody Screen NEGATIVE 03/09/17 03/09/17 03/09/17 10:48 10:48 18:00 Creatine Kinase 148 H CK-MB (CK-2) 4.02 Troponin I 0.103 0.095 03/09/17 03/09/17 03/10/17 18:00 18:00 00:23 Creatine Kinase 124 111 CK-MB (CK-2) 3.04 Troponin I 03/10/17 00:23 Creatine Kinase CK-MB (CK-2) 2.70 Troponin I 0.098 Impressions: Abdomen/Pelvis CT 03/08/17 23:00 IMPRESSION: 1. Hepatosplenomegaly. Cystic lesion at the left hepatic lobe, incompletely evaluated on unenhanced CT. Ultrasound may help in further evaluation. 2. Distended gallbladder, please correlate with clinical concern for acute cholecystitis. 3. Wall thickening at the colon, may be seen with colitis. 4. Small ascites. 5. Diffuse subcutaneous edema. 6. Cardiomegaly. 7. Bibasilar atelectasis. Hepatobiliary Scan Nuclear Medicine 03/09/17 00:00 IMPRESSION: Limited study as noted above. Gallbladder activity was identified. No evidence for cystic duct obstruction is seen. No activity was identified within the small small bowel presumably related to early termination of the study. Abdomen Ultrasound 03/09/17 00:34 IMPRESSION: 1. Cholelithiasis with gallbladder sludge. These findings could be seen with but are not diagnostic for acute cholecystitis. 2. 7.6 cm cystic structure along the falciform ligament. This structure has benign characteristics with no internal echogenicity. This may represent an exophytic hepatic cyst. Given size follow-up CT or ultrasound in 6-12 months recommended for stability. Chest X-Ray 03/10/17 00:00 IMPRESSION: PLACEMENT OF CENTRAL LINE. NO PNEUMOTHORAX. OTHERWISE NO CHANGE. Assessment & Plan - Diagnosis (1) Gastroenteritis Is this a current diagnosis for this admission?: Yes Plan: Patient with vomiting and diarrhea. Patient also with abdominal pain. This seems to be improving. Patient on liquid diet which is being advanced as she is tolerating her liquids. Patient no longer hand abdominal pain. This could also be gastroparesis as patient did not improve after being started on Reglan scheduled. (2) Anemia Qualifiers: Chronic kidney disease stage: on chronic dialysis Is this a current diagnosis for this admission?: Yes Plan: Anemia due to chronic kidney disease. Patient hemoglobin hemoglobin did drop however when CBC was repeated patient hemoglobin trended back up. Patient worsening anemia could have been delusional as patient did receive IV fluids and did miss dialysis. (3) ESRD (end stage renal disease) Is this a current diagnosis for this admission?: Yes Plan: Dr. Bauer consulted. On hemodialysis. Patient did undergo dialysis today. (4) Severe obesity (BMI 35.0-39.9) with comorbidity Is this a current diagnosis for this admission?: Yes Plan: Unable to investment counselor patient on diet and weight loss as patient does not seem to understand what is being discussed with her. (5) Elevated troponin Is this a current diagnosis for this admission?: Yes Plan: Most likely due to her end-stage renal disease. Patient is not complaining of any chest pain. (6) Hypertension Is this a current diagnosis for this admission?: Yes Plan: Continue Coreg. Will hold Norvasc for now. - Time Time Spent with patient: Less than 15 minutes Anticipated discharge: Home Within: within 48 hours - Inpatient Certification Medical Necessity: Significant Comorbidiites Make Outpatient Treatment Too Risky , Need Close Monitoring Due to Risk of Patient Decompensation
--- NOTE | 2017-03-10 20:38 | OPERATIVE REPORT E ---
Operative Report NAME: OMA DRIVER : 1970 AGE: 46Y DATE OF SURGERY: 03/10/2017 ROOM: 318 PREOPERATIVE DIAGNOSIS: POOR VEINS FOR INTRAVENOUS ACCESS, AND NEEDED IV MEDICATIONS. POSTOPERATIVE DIAGNOSIS: POOR VEINS FOR INTRAVENOUS ACCESS, AND NEEDED IV MEDICATIONS. PATIENT ON HEMODIALYSIS. PROCEDURE: Placement of right internal jugular vein triple-lumen catheter under ultrasound guidance. SURGEON: GRACE RICHARDSON M.D. ANESTHESIA: Local. INDICATIONS: This is a 46-year-old female who was admitted for abdominal pain and possible sepsis. She is on hemodialysis. She needed IV access for IV antibiotic and other medications and fluids. DESCRIPTION OF PROCEDURE: The patient was placed in Trendelenburg position and the right neck prepped and draped in the usual sterile fashion. With the use of an ultrasound, the right internal jugular vein was then identified and subsequently local anesthesia infiltrated and the needle injected towards the area of the internal jugular vein. Guidewire was then passed through the needle towards the area of the superior vena cava. The needle was removed. The entry site was dilated. Next, a triple-lumen catheter was then inserted up to a distance of about 16 cm. The guidewire was removed, and 3 ports of the triple-lumen catheter showed easy aspiration of blood and easy injection of saline. The catheter was then anchored to the skin with 3-0 nylon and a BioPatch placed at the insertion site. Dressing was then placed over the catheter. Chest x-ray will be obtained for placement and to rule out a pneumothorax. The patient tolerated the procedure well. DICTATING PHYSICIAN: GRACE RICHARDSON M.D. [id number] PHY#: [id number] ID: [id number] JOB#: [id number] ACCT: [id number] cc:GRACE RICHARDSON M.D. > [email or web address]
[2017-03-10] MEDS: CARVEDILOL 12.5 MG TABLET PO SCH (23:26)
[2017-03-11] MEDS: PANTOPRAZOLE SODIUM 40 MG VIAL IV SCH ×2 (05:44→18:37)
[2017-03-11] MEDS: HEPARIN SOD (PORCINE) 5,000 UNIT/ML 1 ML SYRINGE SUBCUT SCH ×3 (05:44→21:55)
[2017-03-11] MEDS: HYDROMORPHONE HCL INJ/PF 2 MG/ML AMPULE IV PRN (05:44)
[2017-03-11] MEDS: PROMETHAZINE HCL INJ 25 MG/1 ML VIAL IV PRN (05:56)
[2017-03-11] MEDS ORDERED: NALOXONE HCL INJ/PF 0.4 MG/1 ML SDV ONE (07:21)
[2017-03-11] MEDS ORDERED: NALOXONE HCL INJ/PF 0.4 MG/1 ML SDV IV ONE (08:00)
[2017-03-11 08:01] LABS: ARTERIAL BLOOD BASE EXCESS 3.3 mmol/L; ARTERIAL BLOOD FIO2 ROOM AIR; ARTERIAL BLOOD H2CO3 1.22 mmol/L (1.05-1.35); ARTERIAL BLOOD HCO3 27.5 mmol/L (20-26); ARTERIAL BLOOD O2 SATURATION 86.7 % (94-98); ARTERIAL BLOOD PCO2 40.6 mmHg (35-45); ARTERIAL BLOOD PH 7.45 (7.35-7.45); ARTERIAL BLOOD PO2 49.5 mmHg (80-100); ARTERIAL BLOOD TOTAL CO2 28.8 mmol/L (21-25)
[2017-03-11] MEDS: CARVEDILOL 12.5 MG TABLET PO SCH ×2 (10:44→21:56)
[2017-03-11] MEDS: METOCLOPRAMIDE HCL INJ/PF 10 MG/2 ML SDV IV SCH ×3 (10:45→18:37)
--- NOTE | 2017-03-11 12:40 | RADIOLOGY REPORT (SQ) ---
EXAM DESCRIPTION: CHEST SINGLE VIEW COMPLETED DATE/TIME: 03/11/2017 11:21 am REASON FOR STUDY: hypoxia COMPARISON: Chest x-ray 03/10/2017. EXAM PARAMETERS: NUMBER OF VIEWS: One view. TECHNIQUE: Single frontal radiographic view of the chest acquired. RADIATION DOSE: NA LIMITATIONS: None. FINDINGS: LUNGS AND PLEURA: No consolidation, pneumothorax or pleural effusion. MEDIASTINUM AND HILAR STRUCTURES: No masses. Contour normal. HEART AND VASCULAR STRUCTURES: The heart is enlarged. There is mild vascular congestion. BONES: No acute findings. HARDWARE: There is a right IJ central line with the tip overlying the region of the SVC. IMPRESSION: Cardiomegaly and mild vascular congestion. TECHNICAL DOCUMENTATION: JOB ID: [id number] [employer]- All Rights Reserved
[2017-03-11] MEDS ORDERED: NALOXONE HCL INJ/PF 0.4 MG/1 ML SDV IV PRN (16:29)
--- NOTE | 2017-03-11 16:29 | PDOC PROGRESS REPORT ---
Subjective Progress Note for:: 03/11/17 Subjective:: Patient presented with nausea vomiting and diarrhea thought to be cholecystitis however patient HIDA scan examination by surgery were consistent with this. Patient thought to either have gastroparesis and or gastroenteritis. Patient was treated with hydration and anti-emetics along with as needed pain medications. This morning a rapid response was called stating that hypoxic and not responding. Furthermore her eyes are rolling back of her head. Patient started to wake up but was given Narcan and woke up screaming take this mask off for me. All Dilaudid and Phenergan was discontinued. Patient continued to be intermittently hypoxic. Reason For Visit: ABDOMINAL PAIN, N/V/D, ESRD Physical Exam Vital Signs: Temp Pulse Resp BP Pulse Ox 99.1 F 101 H 18 140/70 H 100 03/11/17 08:55 03/11/17 08:55 03/11/17 08:55 03/11/17 08:55 03/11/17 08:55 Intake & Output 03/10/17 03/11/17 03/12/17 06:59 06:59 06:59 Intake Total 1521 1120 Output Total 3000 Balance 1521 -1880 Weight 102.9 kg General appearance: PRESENT: no acute distress, obese, well-nourished Head exam: PRESENT: atraumatic, normocephalic Eye exam: PRESENT: EOMI. ABSENT: scleral icterus Mouth exam: PRESENT: moist Teeth exam: PRESENT: poor dentation Neck exam: PRESENT: full ROM. ABSENT: carotid bruit, JVD, lymphadenopathy, thyromegaly Respiratory exam: PRESENT: clear to auscultation soniya Cardiovascular exam: PRESENT: RRR. ABSENT: diastolic murmur, rubs, systolic murmur GI/Abdominal exam: PRESENT: normal bowel sounds, soft. ABSENT: distended, guarding, mass, organolmegaly, rebound, tenderness Rectal exam: PRESENT: deferred Extremities exam: PRESENT: right AKA - valdez in place Neurological exam: PRESENT: other - hard of hearing. ABSENT: motor sensory deficit Psychiatric exam: PRESENT: flat affect. ABSENT: homicidal ideation, suicidal ideation Skin exam: PRESENT: dry, intact, warm. ABSENT: cyanosis, rash Results Laboratory Results: 03/10/17 14:53 03/10/17 06:10 03/11/17 07:50 Carbonic Acid 1.22 HCO3/H2CO3 Ratio 22:1 ABG pH 7.45 ABG pCO2 40.6 ABG pO2 49.5 L ABG HCO3 27.5 H ABG O2 Saturation 86.7 L ABG Base Excess 3.3 FiO2 ROOM AIR 03/09/17 03/09/17 03/09/17 10:48 10:48 18:00 Creatine Kinase 148 H CK-MB (CK-2) 4.02 Troponin I 0.103 0.095 03/09/17 03/09/17 03/10/17 18:00 18:00 00:23 Creatine Kinase 124 111 CK-MB (CK-2) 3.04 Troponin I 03/10/17 00:23 Creatine Kinase CK-MB (CK-2) 2.70 Troponin I 0.098 Impressions: Abdomen/Pelvis CT 03/08/17 23:00 IMPRESSION: 1. Hepatosplenomegaly. Cystic lesion at the left hepatic lobe, incompletely evaluated on unenhanced CT. Ultrasound may help in further evaluation. 2. Distended gallbladder, please correlate with clinical concern for acute cholecystitis. 3. Wall thickening at the colon, may be seen with colitis. 4. Small ascites. 5. Diffuse subcutaneous edema. 6. Cardiomegaly. 7. Bibasilar atelectasis. Hepatobiliary Scan Nuclear Medicine 03/09/17 00:00 IMPRESSION: Limited study as noted above. Gallbladder activity was identified. No evidence for cystic duct obstruction is seen. No activity was identified within the small small bowel presumably related to early termination of the study. Abdomen Ultrasound 03/09/17 00:34 IMPRESSION: 1. Cholelithiasis with gallbladder sludge. These findings could be seen with but are not diagnostic for acute cholecystitis. 2. 7.6 cm cystic structure along the falciform ligament. This structure has benign characteristics with no internal echogenicity. This may represent an exophytic hepatic cyst. Given size follow-up CT or ultrasound in 6-12 months recommended for stability. Chest X-Ray 03/11/17 00:00 IMPRESSION: Cardiomegaly and mild vascular congestion. Assessment & Plan - Diagnosis (1) Gastroenteritis Is this a current diagnosis for this admission?: Yes Plan: Resolved. Patient with vomiting,diarrhea and abdominal pain. This could also be gastroparesis as paatient does have diabetes and did improve after being started on Reglan. This seems to be improving. Patient dry heaving but not vomiting. Patient with cholelithiasis however HIDA scan and ultrasound is not consistent with cholecystitis. Surgery was consulted did evaluate patient however opted to just observe the patient. (2) Anemia Qualifiers: Chronic kidney disease stage: on chronic dialysis Is this a current diagnosis for this admission?: Yes Plan: Anemia due to chronic kidney disease. Patient on epo. Will stop IV fluids. 8.4 is close to baseline hemoglobin. (3) ESRD (end stage renal disease) Is this a current diagnosis for this admission?: Yes Plan: Dr. Bauer consulted. On hemodialysis. Patient had dialysis on 03/10/2017. (4) Severe obesity (BMI 35.0-39.9) with comorbidity Is this a current diagnosis for this admission?: Yes Plan: Unable to high school guidance counselor patient on diet and weight loss as patient does not seem to understand what is being discussed with her. (5) Elevated troponin Is this a current diagnosis for this admission?: Yes Plan: Most likely due to her end-stage renal disease. Patient is not complaining of any chest pain. (6) Hypertension Is this a current diagnosis for this admission?: Yes Plan: Continue Coreg and norvasc. (7) Diabetes Qualifiers: Diabetes mellitus type: type 1 Is this a current diagnosis for this admission?: Yes Plan: Continue sliding-scale insulin. (8) Respiratory failure with hypoxia Qualifiers: Chronicity: acute Qualified Code(s): J96.01 - Acute respiratory failure with hypoxia Is this a current diagnosis for this admission?: Yes Plan: Patient de-sat into the 60. Patient stated on supplemental oxygen. CXR showed vascular congestion. Order a VQ scan. - Time Time Spent with patient: Less than 15 minutes Anticipated discharge: Home with Homehealth Within: Other - Inpatient Certification Medical Necessity: Significant Comorbidiites Make Outpatient Treatment Too Risky , Need Close Monitoring Due to Risk of Patient Decompensation
[2017-03-11] MEDS: DIAZEPAM 2 MG TABLET PO SCH (18:37)
[2017-03-11] MEDS: SEVELAMER HCL 400 MG TABLET PO SCH (18:38)
[2017-03-11] MEDS: AMLODIPINE BESYLATE 5 MG TABLET PO SCH (21:55)
[2017-03-11] MEDS: GABAPENTIN 100 MG CAPSULE PO SCH (21:55)
[2017-03-11] MEDS: HYDROMORPHONE HCL 2 MG TABLET PO PRN (23:46)
[2017-03-12] MEDS: ONDANSETRON 4 MG TAB.RAPDIS PO PRN ×3 (00:51→09:55)
[2017-03-12] MEDS: HEPARIN SOD (PORCINE) 5,000 UNIT/ML 1 ML SYRINGE SUBCUT SCH ×3 (05:52→22:02)
[2017-03-12] MEDS: GABAPENTIN 100 MG CAPSULE PO SCH ×3 (05:53→22:05)
[2017-03-12] MEDS: PANTOPRAZOLE SODIUM 40 MG VIAL IV SCH (05:53)
[2017-03-12] MEDS: ASPIRIN 81 MG TABLET, CHEWABLE PO SCH (09:52)
[2017-03-12] MEDS: DIAZEPAM 2 MG TABLET PO SCH ×2 (09:52→19:02)
[2017-03-12] MEDS: SEVELAMER HCL 400 MG TABLET PO SCH ×3 (09:53→18:58)
[2017-03-12] MEDS: CARVEDILOL 12.5 MG TABLET PO SCH ×2 (09:54→22:04)
[2017-03-12] MEDS: METOCLOPRAMIDE HCL INJ/PF 10 MG/2 ML SDV IV SCH ×3 (09:56→19:02)
[2017-03-12] MEDS ORDERED: ASPIRIN 81 MG TABLET, ENT COATED PO SCH (10:00)
--- NOTE | 2017-03-12 13:55 | PDOC PROGRESS REPORT ---
Subjective Progress Note for:: 03/12/17 Subjective:: The patient is a 46-year-old obese female who has end-stage renal disease. She was admitted with nausea, vomiting and diarrhea. Initially, cholecystitis was suspected. However, her HIDA scan was inconsistent with this. Therefore, it is felt that she has gastroparesis or gastroenteritis. Surgery is concerned that the patient may have a liver or falciform ligament abscess. Yesterday, the patient had an episode of unresponsiveness associated with acute hypoxemic respiratory failure. This resolved after she was given Narcan. It is presumed that this is secondary to using IV Dilaudid in the hospital. IV Dilaudid has since been discontinued. The patient was without complaints this morning. She is asking when she can go home. Reason For Visit: ABDOMINAL PAIN, N/V/D, ESRD Physical Exam Vital Signs: Temp Pulse Resp BP Pulse Ox 98.8 F 79 18 118/53 L 99 03/12/17 08:15 03/12/17 08:15 03/12/17 08:15 03/12/17 08:15 03/12/17 08:15 Intake & Output 03/11/17 03/12/17 03/13/17 06:59 06:59 06:59 Intake Total 1120 300 Output Total 3000 0 Balance -1880 300 Weight 103.8 kg Additional comments: The patient is a morbidly obese black female. She does not appear to be in any distress. She is awake and alert. Her facial appearance is unremarkable. Her lungs are noted to be diminished in the bases but otherwise clear. Her cardiac exam demonstrates a regular rate and rhythm without murmurs, gallops or rubs. The abdomen is obese but soft. Bowel sounds are noted. The patient is status post a right below the knee amputation. The incision is covered with Steri- Strips. There is no purulence. The left lower extremity is unremarkable with the exception of obesity. Skin is warm dry and intact. Results Laboratory Results: 03/10/17 14:53 03/10/17 06:10 03/11/17 03/11/17 17:50 17:50 Stool Occult Blood NEGATIVE Stool for White Cells NO WBCs SEEN 03/09/17 03/09/17 03/09/17 10:48 10:48 18:00 Creatine Kinase 148 H CK-MB (CK-2) 4.02 Troponin I 0.103 0.095 03/09/17 03/09/17 03/10/17 18:00 18:00 00:23 Creatine Kinase 124 111 CK-MB (CK-2) 3.04 Troponin I 03/10/17 00:23 Creatine Kinase CK-MB (CK-2) 2.70 Troponin I 0.098 Impressions: Abdomen/Pelvis CT 03/08/17 23:00 IMPRESSION: 1. Hepatosplenomegaly. Cystic lesion at the left hepatic lobe, incompletely evaluated on unenhanced CT. Ultrasound may help in further evaluation. 2. Distended gallbladder, please correlate with clinical concern for acute cholecystitis. 3. Wall thickening at the colon, may be seen with colitis. 4. Small ascites. 5. Diffuse subcutaneous edema. 6. Cardiomegaly. 7. Bibasilar atelectasis. Hepatobiliary Scan Nuclear Medicine 03/09/17 00:00 IMPRESSION: Limited study as noted above. Gallbladder activity was identified. No evidence for cystic duct obstruction is seen. No activity was identified within the small small bowel presumably related to early termination of the study. Abdomen Ultrasound 03/09/17 00:34 IMPRESSION: 1. Cholelithiasis with gallbladder sludge. These findings could be seen with but are not diagnostic for acute cholecystitis. 2. 7.6 cm cystic structure along the falciform ligament. This structure has benign characteristics with no internal echogenicity. This may represent an exophytic hepatic cyst. Given size follow-up CT or ultrasound in 6-12 months recommended for stability. Chest X-Ray 03/11/17 00:00 IMPRESSION: Cardiomegaly and mild vascular congestion. Assessment & Plan - Diagnosis (1) Anemia Qualifiers: Chronic kidney disease stage: on chronic dialysis Is this a current diagnosis for this admission?: Yes Plan: Hemoglobin is fluctuating with decrease over the weekend. Will repeat labs in the morning. (2) Diabetes Qualifiers: Diabetes mellitus type: type 1 Is this a current diagnosis for this admission?: Yes Plan: Blood sugars are currently in a good range. (3) ESRD (end stage renal disease) Is this a current diagnosis for this admission?: Yes Plan: Nephrology is following. (4) Elevated troponin Is this a current diagnosis for this admission?: Yes Plan: Not clinically significant. (5) Gastroenteritis Is this a current diagnosis for this admission?: Yes Plan: Likely, the patient does appear to be improving. Surgery would like us to observe the patient for the possibility of a liver or falciform ligament abscess. (6) Hypertension Is this a current diagnosis for this admission?: Yes Plan: Medically stable at this time. (7) Respiratory failure with hypoxia Qualifiers: Chronicity: acute Qualified Code(s): J96.01 - Acute respiratory failure with hypoxia Is this a current diagnosis for this admission?: Yes Plan: Patient was given IV Dilaudid yesterday. She had a period of unresponsiveness. There was a question as to whether or not she needed a VQ scan due to hypoxemia associated with this process. I feel clinically that this was due to hypoventilation from a suppressed respiratory rate from the Dilaudid in the setting of morbid obesity. Therefore, I have canceled the VQ scan because her hypoxemia did not persist because of his symptoms resolved with Narcan. At this time the patient is back on her oral dose of Dilaudid. We should follow her today to determine if this is an appropriate dose or if we need to adjust this further prior to discharge. (8) Severe obesity (BMI 35.0-39.9) with comorbidity Is this a current diagnosis for this admission?: Yes - Time Time Spent with patient: 25-34 minutes - Inpatient Certification Medical Necessity: Significant Comorbidiites Make Outpatient Treatment Too Risky
--- NOTE | 2017-03-12 14:28 | RADIOLOGY REPORT (SQ) ---
EXAM DESCRIPTION: NM LUNG PERFUSION SCAN COMPLETED DATE/TIME: 03/12/2017 1:46 pm REASON FOR STUDY: hypoxia COMPARISON: 5.41 RADIONUCLIDE AND DOSE: 5.41 millicuries TC-99m MAA The route of agent administration: Intravenous TECHNIQUE: 2 views of the lungs acquired following injection of MAA. LIMITATIONS: None. FINDINGS: PERFUSION: Perfusion images with normal homogenous activity and no wedge-shaped or segment al defects. OTHER: No other significant finding. IMPRESSION: NORMAL PERFUSION LUNG SCAN. TECHNICAL DOCUMENTATION: JOB ID: [id number] [employer]- All Rights Reserved
[2017-03-12] MEDS ORDERED: LOPERAMIDE HCL 2 MG CAPSULE PO PRN (18:12)
[2017-03-12] MEDS: AMLODIPINE BESYLATE 5 MG TABLET PO SCH (22:04)
[2017-03-12] MEDS: HYDROMORPHONE HCL 2 MG TABLET PO PRN (22:56)
[2017-03-13] MEDS: GABAPENTIN 100 MG CAPSULE PO SCH ×3 (05:30→21:16)
[2017-03-13] MEDS: HEPARIN SOD (PORCINE) 5,000 UNIT/ML 1 ML SYRINGE SUBCUT SCH ×3 (05:30→21:45)
[2017-03-13 06:32] LABS: ABSOLUTE BASOPHILS # (AUTO) 0.1 10^3/uL (0.0-0.2); ABSOLUTE EOSINOPHILS # (AUTO) 0.3 10^3/uL (0.0-0.6); ABSOLUTE MONOCYTES (AUTO) 0.6 10^3/uL (0.1-1.4); ABSOLUTE NEUT (AUTO) 6.8 10^3/uL (1.7-8.2); EOSINOPHILS % (AUTO) 3.4 % (0-6); HEMATOCRIT 23.8 % (36.0-47.0); LYMPHOCYTES % (AUTO) 11.7 % (13-45); MEAN CORPUSCULAR HEMOGLOBIN 30.2 pg (27.0-33.4); MEAN CORPUSCULAR HGB CONC 32.6 g/dL (32.0-36.0); MEAN CORPUSCULAR VOLUME 93 fl (80-97); MONOCYTES % (AUTO) 7.3 % (3-13); PLATELET COUNT 153 10^3/uL (150-450); RED BLOOD COUNT 2.56 10^6/uL (3.72-5.28); RED CELL DISTRIBUTION WIDTH 16.6 % (11.5-14.0); SEGMENTED NEUTROPHILS % (AUTO) 76.6 % (42-78); TOTAL CELLS COUNTED % (AUTO) 100 %; WHITE BLOOD COUNT 8.8 10^3/uL (4.0-10.5)
[2017-03-13 06:54] LABS: HEMOGLOBIN 7.8 g/dL (12.0-15.5)
[2017-03-13 06:57] LABS: BLOOD UREA NITROGEN 47 mg/dL (7-20); CALCIUM 8.2 mg/dL (8.4-10.2); CARBON DIOXIDE 23 mmol/L (22-30); GLUCOSE 113 mg/dL (75-110)
[2017-03-13 07:10] LABS: CHLORIDE 97 mmol/L (98-107); POTASSIUM 4.5 mmol/L (3.6-5.0); SODIUM 138.3 mmol/L (137-145)
[2017-03-13 07:15] LABS: ANION GAP 18 (5-19)
[2017-03-13] MEDS: SEVELAMER HCL 400 MG TABLET PO SCH ×3 (07:50→17:57)
[2017-03-13] MEDS: ONDANSETRON 4 MG TAB.RAPDIS PO PRN ×2 (07:50→21:33)
[2017-03-13] MEDS ORDERED: EPOETIN ALFA INJ 20000 UNIT/1 ML VIAL (RENAL) IV PRN (09:00)
--- NOTE | 2017-03-13 11:31 | PDOC PROGRESS REPORT ---
Subjective Progress Note for:: 03/13/17 Subjective:: The patient is a 46-year-old obese female who has end-stage renal disease. She was admitted with nausea, vomiting and diarrhea. Initially, cholecystitis was suspected. However, her HIDA scan was inconsistent with this. Therefore, it is felt that she has gastroparesis or gastroenteritis. Surgery is concerned that the patient may have a liver or falciform ligament abscess. Monday, the patient had an episode of unresponsiveness associated with acute hypoxemic respiratory failure. This resolved after she was given Narcan. It is presumed that this is secondary to using IV Dilaudid in the hospital. IV Dilaudid has since been discontinued but she is still intermittently receiving oral narcotics. I saw the patient today when she was on dialysis. She is complaining of diffuse, knifelike abdominal pain. She is unable to tell me whether or not the pain is worse after eating. Yesterday, I was informed that she was having diarrhea. C. difficile toxin is negative. Stool culture did not show fecal leukocytes. She is still having loose stools. Reason For Visit: ABDOMINAL PAIN, N/V/D, ESRD Physical Exam Vital Signs: Temp Pulse Resp BP Pulse Ox 98.6 F 77 21 H 131/71 H 95 03/13/17 07:55 03/13/17 07:55 03/13/17 07:55 03/13/17 07:55 03/13/17 07:55 Intake & Output 03/12/17 03/13/17 03/14/17 06:59 06:59 06:59 Intake Total 300 910 Output Total 0 0 Balance 300 910 Weight 103.8 kg 101 kg Additional comments: The patient was lying in bed while receiving dialysis. She did not appear to be in any distress. She does not appear to be toxic. Her facial appearance is unremarkable. It should be stated that she is extremely hard of hearing and she appears to have some cognitive difficulties. Her lungs are clear to auscultation bilaterally. Her cardiac exam is regular without murmurs, gallops or rubs. The abdomen is obese, but, she is diffusely tender particularly over the mid epigastric region. She does not have any guarding or rebound noted. No hernias or masses are present. The lower extremities are obese. 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 The stump site appears to be healing well. The left lower extremities unremarkable. Results Laboratory Results: 03/13/17 04:55 03/13/17 04:55 03/13/17 03/13/17 04:55 04:55 WBC 8.8 RBC 2.56 L Hgb 7.8 L Hct 23.8 L MCV 93 MCH 30.2 MCHC 32.6 RDW 16.6 H Plt Count 153 Seg Neutrophils % 76.6 Lymphocytes % 11.7 L Monocytes % 7.3 Eosinophils % 3.4 Basophils % 1.0 Absolute Neutrophils 6.8 Absolute Lymphocytes 1.0 Absolute Monocytes 0.6 Absolute Eosinophils 0.3 Absolute Basophils 0.1 Sodium 138.3 Potassium 4.5 Chloride 97 L Carbon Dioxide 23 Anion Gap 18 BUN 47 H Creatinine 11.31 H Est GFR ( Amer) 4 L Est GFR (Non-Af Amer) 4 L Glucose 113 H Calcium 8.2 L Magnesium 2.0 03/11/17 17:50 Stool - Stool - Final 03/09/17 03/09/17 03/09/17 10:48 10:48 18:00 Creatine Kinase 148 H CK-MB (CK-2) 4.02 Troponin I 0.103 0.095 03/09/17 03/09/17 03/10/17 18:00 18:00 00:23 Creatine Kinase 124 111 CK-MB (CK-2) 3.04 Troponin I 03/10/17 00:23 Creatine Kinase CK-MB (CK-2) 2.70 Troponin I 0.098 Impressions: Abdomen/Pelvis CT 03/08/17 23:00 IMPRESSION: 1. Hepatosplenomegaly. Cystic lesion at the left hepatic lobe, incompletely evaluated on unenhanced CT. Ultrasound may help in further evaluation. 2. Distended gallbladder, please correlate with clinical concern for acute cholecystitis. 3. Wall thickening at the colon, may be seen with colitis. 4. Small ascites. 5. Diffuse subcutaneous edema. 6. Cardiomegaly. 7. Bibasilar atelectasis. Hepatobiliary Scan Nuclear Medicine 03/09/17 00:00 IMPRESSION: Limited study as noted above. Gallbladder activity was identified. No evidence for cystic duct obstruction is seen. No activity was identified within the small small bowel presumably related to early termination of the study. Abdomen Ultrasound 03/09/17 00:34 IMPRESSION: 1. Cholelithiasis with gallbladder sludge. These findings could be seen with but are not diagnostic for acute cholecystitis. 2. 7.6 cm cystic structure along the falciform ligament. This structure has benign characteristics with no internal echogenicity. This may represent an exophytic hepatic cyst. Given size follow-up CT or ultrasound in 6-12 months recommended for stability. Chest X-Ray 03/11/17 00:00 IMPRESSION: Cardiomegaly and mild vascular congestion. Lung Scan-VQ NM 03/11/17 00:00 IMPRESSION: NORMAL PERFUSION LUNG SCAN. Assessment & Plan - Diagnosis (1) Anemia Qualifiers: Chronic kidney disease stage: on chronic dialysis Is this a current diagnosis for this admission?: Yes Plan: Hemoglobin is fluctuating with decrease over the weekend. Repeat labs do demonstrate decreased hemoglobin. Will discuss with nephrology to determine if transfusion is needed. (2) Diabetes Qualifiers: Diabetes mellitus type: type 1 Is this a current diagnosis for this admission?: Yes Plan: Blood sugars are currently in a good range. (3) ESRD (end stage renal disease) Is this a current diagnosis for this admission?: Yes Plan: Nephrology is following. Patient is receiving dialysis Monday, Monday and Monday. (4) Elevated troponin Is this a current diagnosis for this admission?: Yes Plan: Not clinically significant. (5) Gastroenteritis Is this a current diagnosis for this admission?: Yes Plan: Surgery is concerned for the possibility of a liver or falciform ligament abscess. Yesterday, the patient's abdominal pain was resolved. Due to the intermittent nature I am somewhat concerned about mesenteric ischemia. I would like to get surgery's input today. (6) Hypertension Is this a current diagnosis for this admission?: Yes Plan: Medically stable at this time. (7) Respiratory failure with hypoxia Qualifiers: Chronicity: acute Qualified Code(s): J96.01 - Acute respiratory failure with hypoxia Is this a current diagnosis for this admission?: Yes Plan: Resolved. Perfusion lung scan was negative. (8) Severe obesity (BMI 35.0-39.9) with comorbidity Is this a current diagnosis for this admission?: Yes - Time Time Spent with patient: 25-34 minutes - Inpatient Certification Medical Necessity: Risk of Complication if Not Cared For in Hospital, Risk of Diagnosis Which Will Require Inpatient Eval/Care/Monitoring
[2017-03-13] MEDS: ASPIRIN 81 MG TABLET, CHEWABLE PO SCH (12:29)
[2017-03-13] MEDS: DIAZEPAM 2 MG TABLET PO SCH ×2 (12:30→17:54)
[2017-03-13] MEDS: CARVEDILOL 12.5 MG TABLET PO SCH ×2 (12:30→21:17)
[2017-03-13] MEDS: METOCLOPRAMIDE HCL INJ/PF 10 MG/2 ML SDV IV SCH ×3 (12:33→17:56)
--- NOTE | 2017-03-13 12:37 | PDOC PROGRESS REPORT ---
Subjective Progress Note for:: 03/13/17 Reason For Visit: this patient was sen today on dialysis. Poor historian for MR. She is undergoing dialysis without any issues. However when asked she admits to some pain in her upper abdomen. Denies any nausea or vomiting. She says he has been eating some. VS are stable. Physical Exam Vital Signs: Temp Pulse Resp BP Pulse Ox 98.6 F 77 21 H 131/71 H 95 03/13/17 07:55 03/13/17 07:55 03/13/17 07:55 03/13/17 07:55 03/13/17 07:55 Intake & Output 03/12/17 03/13/17 03/14/17 06:59 06:59 06:59 Intake Total 300 910 Output Total 0 0 Balance 300 910 Weight 103.8 kg 101 kg General appearance: PRESENT: no acute distress Respiratory exam: PRESENT: clear to auscultation soniya. ABSENT: crackles, rhonchi Cardiovascular exam: PRESENT: RRR, +S1, +S2 GI/Abdominal exam: PRESENT: normal bowel sounds, soft, tenderness - Mild around the epigastric area. No guarding or rebound.. ABSENT: mass, organomegaly Neurological exam: PRESENT: awake, oriented to person, oriented to place Skin exam: PRESENT: normal color. ABSENT: cyanosis, dry, erythema, mottled Results Laboratory Results: 03/13/17 04:55 03/13/17 04:55 03/13/17 03/13/17 04:55 04:55 WBC 8.8 RBC 2.56 L Hgb 7.8 L Hct 23.8 L MCV 93 MCH 30.2 MCHC 32.6 RDW 16.6 H Plt Count 153 Seg Neutrophils % 76.6 Lymphocytes % 11.7 L Monocytes % 7.3 Eosinophils % 3.4 Basophils % 1.0 Absolute Neutrophils 6.8 Absolute Lymphocytes 1.0 Absolute Monocytes 0.6 Absolute Eosinophils 0.3 Absolute Basophils 0.1 Sodium 138.3 Potassium 4.5 Chloride 97 L Carbon Dioxide 23 Anion Gap 18 BUN 47 H Creatinine 11.31 H Est GFR ( Amer) 4 L Est GFR (Non-Af Amer) 4 L Glucose 113 H Calcium 8.2 L Magnesium 2.0 03/11/17 17:50 Stool - Stool - Final 03/09/17 03/09/17 03/09/17 10:48 10:48 18:00 Creatine Kinase 148 H CK-MB (CK-2) 4.02 Troponin I 0.103 0.095 03/09/17 03/09/17 03/10/17 18:00 18:00 00:23 Creatine Kinase 124 111 CK-MB (CK-2) 3.04 Troponin I 03/10/17 00:23 Creatine Kinase CK-MB (CK-2) 2.70 Troponin I 0.098 Impressions: Abdomen/Pelvis CT 03/08/17 23:00 IMPRESSION: 1. Hepatosplenomegaly. Cystic lesion at the left hepatic lobe, incompletely evaluated on unenhanced CT. Ultrasound may help in further evaluation. 2. Distended gallbladder, please correlate with clinical concern for acute cholecystitis. 3. Wall thickening at the colon, may be seen with colitis. 4. Small ascites. 5. Diffuse subcutaneous edema. 6. Cardiomegaly. 7. Bibasilar atelectasis. Hepatobiliary Scan Nuclear Medicine 03/09/17 00:00 IMPRESSION: Limited study as noted above. Gallbladder activity was identified. No evidence for cystic duct obstruction is seen. No activity was identified within the small small bowel presumably related to early termination of the study. Abdomen Ultrasound 03/09/17 00:34 IMPRESSION: 1. Cholelithiasis with gallbladder sludge. These findings could be seen with but are not diagnostic for acute cholecystitis. 2. 7.6 cm cystic structure along the falciform ligament. This structure has benign characteristics with no internal echogenicity. This may represent an exophytic hepatic cyst. Given size follow-up CT or ultrasound in 6-12 months recommended for stability. Chest X-Ray 03/11/17 00:00 IMPRESSION: Cardiomegaly and mild vascular congestion. Lung Scan-VQ AR 03/11/17 00:00 IMPRESSION: NORMAL PERFUSION LUNG SCAN. Assessment & Plan - Diagnosis (1) End-stage renal disease on hemodialysis Is this a current diagnosis for this admission?: Yes Plan: Seen on HD which is being supervised to insure a safe and smooth procedure.VS are stable. Plan to remove 3-4 L as tolerated. Orders were discussed with the treating RN, Margaux. (2) Anemia Qualifiers: Chronic kidney disease stage: on chronic dialysis Is this a current diagnosis for this admission?: Yes Plan: Adjust epo. Might need transfusion soon. Follow with post dialysis hb check. Needs further eval and will leave it to the hospitalist. (3) Cholecystitis Is this a current diagnosis for this admission?: Yes Plan: As per surgery.Presently abdominal pains are improving. (4) Diarrhea Qualifiers: Diarrhea type: unspecified type Qualified Code(s): R19.7 - Diarrhea, unspecified Is this a current diagnosis for this admission?: Yes Plan: Apparently better. (5) Hypertension Is this a current diagnosis for this admission?: Yes Plan: relatively controlled.
--- NOTE | 2017-03-13 15:34 | RADIOLOGY REPORT (SQ) ---
EXAM DESCRIPTION: CT ABD/PELVIS ORAL ONLY COMPLETED DATE/TIME: 03/13/2017 3:20 pm REASON FOR STUDY: Persistent abdominal pain COMPARISON: 03/08/2017 TECHNIQUE: CT scan of the abdomen and pelvis performed with oral contrast and no intravenous contras t. Images reviewed with lung, soft tissue, and bone windows. Reconstructed coronal and sagittal MPR i mages reviewed. All images stored on PACS. All CT scanners at this facility use dose modulation, iterative reconstruction, and/or weight based d osing when appropriate to reduce radiation dose to as low as reasonably achievable (ALARA). [facility]: Dose Right [facility]: CareDose [facility]: Dose Right [facility]: Teradose 4D [facility]: Luminate RADIATION DOSE: CT Rad equipment meets quality standard of care and radiation dose reduction techniq ues were employed. CTDIvol: 25.8 mGy. DLP: 1405 mGy-cm. mGy. LIMITATIONS: None. FINDINGS: No significant change from 5 days ago. Contrast extends from the stomach to the splenic f lexure. No evidence of obstruction. Slight increase in ascites but still mild. Increase in free fluid in the pelvis. IMPRESSION: No obstruction. Slight interval increase in the amount of ascites. TECHNICAL DOCUMENTATION: JOB ID: [id number] Quality ID # [id number]: Final reports with documentation of one or more dose reduction techniques (e.g., Au tomated exposure control, adjustment of the mA and/or kV according to patient size, use of iterative reconstruction technique) 2010 [employer]- All Rights Reserved
[2017-03-13] MEDS: HYDROMORPHONE HCL 2 MG TABLET PO PRN (17:56)
[2017-03-13] MEDS: AMLODIPINE BESYLATE 5 MG TABLET PO SCH (21:17)
[2017-03-14] MEDS: HYDROMORPHONE HCL 2 MG TABLET PO PRN (04:06)
[2017-03-14] MEDS: HEPARIN SOD (PORCINE) 5,000 UNIT/ML 1 ML SYRINGE SUBCUT SCH ×2 (08:39→14:52)
[2017-03-14] MEDS: GABAPENTIN 100 MG CAPSULE PO SCH ×2 (08:40→14:58)
[2017-03-14] MEDS: SEVELAMER HCL 400 MG TABLET PO SCH ×3 (08:44→17:39)
--- NOTE | 2017-03-14 10:44 | PDOC DISCHARGE SUMMARY ---
General - Admit/Disc Date/PCP Admission Date/Primary Care Provider: 03/09/17 05:11 MARTA CHEW PA-C Discharge Date: 03/14/17 - Discharge Diagnosis (1) Anemia Is this a current diagnosis for this admission?: Yes (2) Diabetes Is this a current diagnosis for this admission?: Yes (3) ESRD (end stage renal disease) Is this a current diagnosis for this admission?: Yes (4) Elevated troponin Is this a current diagnosis for this admission?: Yes (5) Gastroenteritis Is this a current diagnosis for this admission?: Yes (6) Hypertension Is this a current diagnosis for this admission?: Yes (7) Respiratory failure with hypoxia Is this a current diagnosis for this admission?: Yes (8) Severe obesity (BMI 35.0-39.9) with comorbidity Is this a current diagnosis for this admission?: Yes - Additional Information Resuscitation Status: Full Code Discharge Diet: Other (Comments) - Carbohydrate controlled dialysis diet Discharge Activity: Balance Activity w/Rest, Supervised Activity Prescriptions: Hydromorphone HCl [Dilaudid 2 mg Tablet] 1 mg PO Q8 PRN 3 Days #7 tablet PRN Reason: Home Medications: Albuterol Sulfate [Proair HFA] 1 puff IH Q4HP PRN 03/09/17 Amlodipine Besylate [Norvasc 5 mg Tablet] 5 mg PO DAILY 03/09/17 Aspirin [Aspirin 81 mg Chewable Tablet] 81 mg PO DAILY 03/09/17 Carvedilol [Coreg 25 mg Tablet] 25 mg PO Q12 03/09/17 Cyclobenzaprine HCl [Flexeril 5 mg Tablet] 5 mg PO TID 03/09/17 Diazepam [Valium 5 mg Tablet] 5 mg PO BID 03/09/17 Folic Acid/Vitamin B Comp W-C [Renavit Tablet] 0.8 mg PO DAILY 03/09/17 Gabapentin [Neurontin 100 mg Capsule] 100 mg PO Q8 03/09/17 Medroxyprogesterone Acet [Provera 10 mg Tablet] 10 mg PO DAILY 03/09/17 Ondansetron HCl [Zofran 4 mg Tablet] 4 mg PO BIDP PRN 03/09/17 Sevelamer HCl [Renagel] 2,400 mg PO MEALS 03/09/17 Sevelamer HCl [Renagel] 800 mg PO ASDIR PRN 03/09/17 Hydromorphone HCl [Dilaudid 2 mg Tablet] 1 mg PO Q8 PRN 3 Days #7 tablet History of Present Illness History of Present Illness: [employer]IVER is a 46 year old female with underlying cognitive impairments. The history has primarily been obtained from her significant other. The patient fell prior to admission. She fell on her face and abdomen. She fractured her nose. She then had ongoing abdominal pain associated with nausea , vomiting and diarrhea with a question of fevers and chills. She therefore came into the hospital for further evaluation and was admitted with a tentative diagnosis of cholecystitis based on imaging studies. Hospital Course Hospital Course: The patient was admitted with a tentative diagnosis of cholecystitis. General surgery was consulted. HIDA scan did not confirm cholecystitis. The patient had a CT of the abdomen which was initially concerning for a possible abscess in the liver or falciform ligament. The patient was therefore monitored in the hospital over the weekend but did not manifest any fevers or chills. A CT of the abdomen and pelvis was repeated on 03/13/2017 and there is no evidence of abscess formation. Regarding the diarrhea the patient tested negative for C. difficile toxin in her stool culture is negative. The etiology of her abdominal pain is unclear. She did fall prior to admission. She may be developing gastroparesis secondary to her diabetes and she may have suffered a component of gastroenteritis. In any event, the patient's pain is resolved and she is requesting discharge at this time. The patient's anemia was addressed by nephrology. Her dose of Epogen was adjusted. Dr. Bauer will follow and transfuse as necessary. Patient did continue her regular dialysis schedule this hospitalization which is Monday, Monday and Monday. In regards to her below the knee amputation that occurred in December 2016 she will be fitted for a prosthesis today and then discharged home with appropriate follow-up. On Saturday, March 11, 2017 a rapid response was called because the patient was hypoxic and unresponsive. She responded very well to Narcan. I did decrease the patient's dose of Dilaudid at the time of discharge. On admission it was 2 mg every 8 hours. She will go home on 1 mg every 8 hours as needed. She will only be given a 3 day prescription. She will need her pain medications addressed with her primary care provider. On the day of persisten hypoxia the patient also had a perfusion study which was not indicative of pulmonary embolus. Upon admission the patient was noted to have a positive troponin. This was felt to be secondary to underlying end-stage renal disease. There is no evidence of acute coronary syndrome. The patient did not receive antibiotics this hospitalization. If her symptoms persist her evaluation could include an evaluation for atherosclerotic disease within the celiac axis, ongoing colitis and/or peritonitis. Please note that the patient will need a repeat ultrasound in 6 months to reevaluate the 7.6 cm cystic structure at the falciform ligament. Physical Exam Vital Signs: Temp Pulse Resp BP Pulse Ox 98.5 F 74 18 127/63 H 100 03/14/17 08:30 03/14/17 08:30 03/14/17 08:30 03/14/17 08:30 03/14/17 08:30 Intake & Output 03/13/17 03/14/17 03/15/17 06:59 06:59 06:59 Intake Total 910 1729 Output Total 0 3000 Balance 910 -1271 Weight 101 kg 102.7 kg Additional comments: The patient is an obese black female. She does not appear to be in any distress. She is requesting discharge at this time. She has no complaints this morning. Her facial appearance is unremarkable. Her lungs are clear to auscultation bilaterally. Her cardiac exam is regular without murmurs, gallops or rubs. The abdomen is obese but soft. Bowel sounds are noted in the lower quadrants. She does not have guarding or rebound noted and there are no hernias or masses present. The lower extremities demonstrate a right above-the- knee amputation. The stump site appears to be healing well. The left lower extremity is unremarkable. The skin is warm, dry and intact without lesions or rashes. Results Laboratory Results: 03/13/17 04:55 03/13/17 04:55 03/11/17 17:50 Stool - Stool - Final 03/09/17 03/09/17 03/09/17 10:48 10:48 18:00 Creatine Kinase 148 H CK-MB (CK-2) 4.02 Troponin I 0.103 0.095 03/09/17 03/09/17 03/10/17 18:00 18:00 00:23 Creatine Kinase 124 111 CK-MB (CK-2) 3.04 Troponin I 03/10/17 00:23 Creatine Kinase CK-MB (CK-2) 2.70 Troponin I 0.098 Impressions: Hepatobiliary Scan Nuclear Medicine 03/09/17 00:00 IMPRESSION: Limited study as noted above. Gallbladder activity was identified. No evidence for cystic duct obstruction is seen. No activity was identified within the small small bowel presumably related to early termination of the study. Abdomen Ultrasound 03/09/17 00:34 IMPRESSION: 1. Cholelithiasis with gallbladder sludge. These findings could be seen with but are not diagnostic for acute cholecystitis. 2. 7.6 cm cystic structure along the falciform ligament. This structure has benign characteristics with no internal echogenicity. This may represent an exophytic hepatic cyst. Given size follow-up CT or ultrasound in 6-12 months recommended for stability. Chest X-Ray 03/11/17 00:00 IMPRESSION: Cardiomegaly and mild vascular congestion. Lung Scan-VQ NM 03/11/17 00:00 IMPRESSION: NORMAL PERFUSION LUNG SCAN. Abdomen/Pelvis CT 03/13/17 00:00 IMPRESSION: No obstruction. Slight interval increase in the amount of ascites. Plan Discharge Plan: 1. Discharge to home 2. Discharge diet will be dialysis diet/carbohydrate controlled. 3. Follow-up as scheduled for dialysis on Monday 4. Follow-up with primary direct care professional this week to address use of opioids. 5. It is recommended that the patient have a repeat ultrasound in 6 months to reevaluate the 7.6 cm cystic structure of the falciform ligament. 6. If the patient's abdominal pain recurs further evaluation regarding the potential for colitis may be needed. Consider gastroenterology evaluation. Time Spent: Greater than 30 Minutes
[2017-03-14] MEDS: DIAZEPAM 2 MG TABLET PO SCH ×2 (11:02→17:39)
[2017-03-14] MEDS: ASPIRIN 81 MG TABLET, CHEWABLE PO SCH (11:03)
[2017-03-14] MEDS: CARVEDILOL 12.5 MG TABLET PO SCH (11:03)
[2017-03-14] MEDS: METOCLOPRAMIDE HCL INJ/PF 10 MG/2 ML SDV IV SCH ×3 (11:04→17:39)
[2017-03-14 11:54] LABS: ANION GAP 16 (5-19); BLOOD UREA NITROGEN 32 mg/dL (7-20); CALCIUM 8.5 mg/dL (8.4-10.2); CARBON DIOXIDE 27 mmol/L (22-30); CHLORIDE 95 mmol/L (98-107); GLUCOSE 118 mg/dL (75-110); POTASSIUM 3.9 mmol/L (3.6-5.0); SODIUM 137.8 mmol/L (137-145)
[2017-03-14 15:02] LABS: ANION GAP 15 (5-19); BLOOD UREA NITROGEN 32 mg/dL (7-20); CALCIUM 8.4 mg/dL (8.4-10.2); CARBON DIOXIDE 27 mmol/L (22-30); CHLORIDE 95 mmol/L (98-107); GLUCOSE 147 mg/dL (75-110); POTASSIUM 3.9 mmol/L (3.6-5.0)
[2017-03-14 18:11] VITALS: BP 124/60
--- NOTE | 2017-03-14 19:54 | PDOC PROGRESS REPORT ---
Subjective Progress Note for:: 03/14/17 - seen this morning Subjective:: Patient was sitting up on the edge of her bed stating that she thinks she is going home today. She said that she no longer had the abdominal pain that she came in with. She denies SOB or chest pain. According to her nurse she is doing better but at the time had not heard if she was going home today. Reason For Visit: ABDOMINAL PAIN, N/V/D, ESRD Physical Exam Vital Signs: Temp Pulse Resp BP Pulse Ox 98.5 F 74 18 124/60 100 03/14/17 17:08 03/14/17 17:08 03/14/17 17:08 03/14/17 16:48 03/14/17 17:08 Intake & Output 03/13/17 03/14/17 03/15/17 06:59 06:59 06:59 Intake Total 910 1729 297 Output Total 0 3000 Balance 910 -1271 297 Weight 101 kg 102.7 kg General appearance: PRESENT: no acute distress, well-developed, well-nourished Head exam: PRESENT: atraumatic, normocephalic Mouth exam: PRESENT: moist, tongue midline Neck exam: PRESENT: full ROM. ABSENT: JVD Respiratory exam: PRESENT: clear to auscultation soniya. ABSENT: crackles, rales, rhonchi, wheezes Cardiovascular exam: PRESENT: RRR, +S1, +S2 GI/Abdominal exam: PRESENT: normal bowel sounds, soft, tenderness - Mild around the epigastric area. No guarding or rebound. Extremities exam: PRESENT: full ROM. ABSENT: calf tenderness, clubbing, pedal edema Neurological exam: PRESENT: alert, awake, oriented to person, oriented to place , oriented to time, oriented to situation Psychiatric exam: PRESENT: appropriate affect, normal mood Skin exam: PRESENT: dry, intact, warm Results Laboratory Results: 03/13/17 04:55 03/14/17 14:20 03/14/17 03/14/17 11:09 14:20 Sodium 137.8 137.0 Potassium 3.9 3.9 Chloride 95 L 95 L Carbon Dioxide 27 27 Anion Gap 16 15 BUN 32 H 32 H Creatinine 7.87 H 8.06 H Est GFR ( Amer) 7 L 7 L Est GFR (Non-Af Amer) 6 L 5 L Glucose 118 H 147 H Calcium 8.5 8.4 03/09/17 03/09/17 03/09/17 10:48 10:48 18:00 Creatine Kinase 148 H CK-MB (CK-2) 4.02 Troponin I 0.103 0.095 03/09/17 03/09/17 03/10/17 18:00 18:00 00:23 Creatine Kinase 124 111 CK-MB (CK-2) 3.04 Troponin I 03/10/17 00:23 Creatine Kinase CK-MB (CK-2) 2.70 Troponin I 0.098 Impressions: Hepatobiliary Scan Nuclear Medicine 03/09/17 00:00 IMPRESSION: Limited study as noted above. Gallbladder activity was identified. No evidence for cystic duct obstruction is seen. No activity was identified within the small small bowel presumably related to early termination of the study. Abdomen Ultrasound 03/09/17 00:34 IMPRESSION: 1. Cholelithiasis with gallbladder sludge. These findings could be seen with but are not diagnostic for acute cholecystitis. 2. 7.6 cm cystic structure along the falciform ligament. This structure has benign characteristics with no internal echogenicity. This may represent an exophytic hepatic cyst. Given size follow-up CT or ultrasound in 6-12 months recommended for stability. Chest X-Ray 03/11/17 00:00 IMPRESSION: Cardiomegaly and mild vascular congestion. Lung Scan-VQ NM 03/11/17 00:00 IMPRESSION: NORMAL PERFUSION LUNG SCAN. Abdomen/Pelvis CT 03/13/17 00:00 IMPRESSION: No obstruction. Slight interval increase in the amount of ascites. Assessment & Plan - Diagnosis (1) ESRD (end stage renal disease) Is this a current diagnosis for this admission?: Yes Plan: patient does not appear to be fluid overloaded and labs look to be stable. She is clear for discharge and will continue dialysis daily (2) Cholecystitis Is this a current diagnosis for this admission?: Yes Plan: pain looks to have resolved (3) Hypertension Is this a current diagnosis for this admission?: Yes Plan: looks to be stable (4) Anemia Qualifiers: Chronic kidney disease stage: on chronic dialysis Is this a current diagnosis for this admission?: Yes Plan: will continue to given epogen during dialysis and will be getting iron studies at the outpatient facility.
== END 2017-03-14 18:44 | disposition home health service (06) | DRG 391 ==
LOC: ER 15:25 → EH 03-09 05:11 → 3W 03-09 16:48
PROVIDERS: ADMIT Family Medicine; ATTEND Family Medicine
PROC: 02HV33Z Insertion of Infusion Device into Superior Vena Cava, Percutaneous Approach (ICD-10-PCS; principal; 2017-03-10)
PROC: B548ZZA Ultrasonography of Superior Vena Cava, Guidance (ICD-10-PCS; 2017-03-10)
PROC: 5A1D70Z Performance of Urinary Filtration, Intermittent, Less than 6 Hours Per Day (ICD-10-PCS; 2017-03-10)
PROC: 5A1D70Z Performance of Urinary Filtration, Intermittent, Less than 6 Hours Per Day (ICD-10-PCS; 2017-03-13)
DX: K52.9 Noninfective gastroenteritis and colitis, unspecified (principal); N18.6 End stage renal disease; J96.01 Acute respiratory failure with hypoxia; I12.0 Hypertensive chronic kidney disease with stage 5 chronic kidney disease or end stage renal disease; E10.22 Type 1 diabetes mellitus with diabetic chronic kidney disease; D63.1 Anemia in chronic kidney disease; E10.43 Type 1 diabetes mellitus with diabetic autonomic (poly)neuropathy; K31.84 Gastroparesis; E78.5 Hyperlipidemia, unspecified; Z68.38 Body mass index [BMI] 38.0-38.9, adult; S02.2XXA Fracture of nasal bones, initial encounter for closed fracture; W19.XXXA Unspecified fall, initial encounter; Y93.9 Activity, unspecified; Y92.9 Unspecified place or not applicable; Y99.9 Unspecified external cause status; E66.9 Obesity, unspecified; Z99.2 Dependence on renal dialysis; Z79.4 Long term (current) use of insulin; Z79.82 Long term (current) use of aspirin; Z79.899 Other long term (current) drug therapy; Z87.891 Personal history of nicotine dependence; Z89.511 Acquired absence of right leg below knee
CPT/HCPCS: 36415; 70160; 71045; 74176; 76705; 78226; 78580; 80048; 80053; 81001; 82272; 82550; 82553; 82803; 82962; 82977; 83690; 83735; 84484; 84703; 85025; 86850; 86900; 86901; 87045; 87205; 87493; 89055; 93005; 93010; 93976; 96372; 99285; A9537; A9540; C1751; G8978-GP; G8979-GP; J0885; J1170; J1642; J1644; J2310; J2543; J2550; J2765; J3490; Q4081; Q9969; S0119; S0164

== ENCOUNTER 2017-03-16 01:21 | Emergency (ER) | payer MEDICARE, MEDICAID ==
--- NOTE | 2017-03-16 03:04 | RADIOLOGY REPORT (SQ) ---
EXAM DESCRIPTION: CHEST PA/LAT CLINICAL HISTORY: 46 years, Female, sob with lying down COMPARISON: 03/11/2018 NUMBER OF VIEWS: Two LIMITATIONS: None. FINDINGS: Moderate to severe enlargement of the cardiac silhouette, moderate central pulmonary edema pattern, moderate lung volume, and intact bony thorax. IMPRESSION: Moderate CHF pattern. 2010 [facility] [employer]- All Rights Reserved
--- NOTE | 2017-03-16 03:22 | ER Document Report ---
ED Respiratory Problem - General Chief Complaint: Shortness Of Breath Stated Complaint: SHORTNESS OF BREATH Time Seen by Provider: 03/16/17 01:29 Mode of Arrival: Medic Information source: Patient Notes: Pt is a 46 year old female with a history of diabetes, congestive heart failure , on dialysis, supposed to be dialyzed today, who presents to the ER today for continued shortness of breath. Boyfriend states that this has been normal for her for "quite some time." He states that whenever she sleeps she gets short of breath. He states that whenever she is standing that she is not really short of breath. She denies any chest pain, Nausea or vomiting. She denies any productive cough, fever or chills. TRAVEL OUTSIDE OF THE [place] IN LAST 30 DAYS: No - Related Data Allergies/Adverse Reactions: No Known Allergies Allergy (Verified 12/31/16 13:34) Past Medical History - General Information source: Patient - Social History Smoking Status: Unknown if Ever Smoked Chew tobacco use (# tins/day): No Frequency of alcohol use: None Drug Abuse: None Family History: CAD, DM, Hypertension Patient has suicidal ideation: No Patient has homicidal ideation: No - Past Medical History Cardiac Medical History: Reports: Hx Hypercholesterolemia, Hx Hypertension Denies: Hx Coronary Artery Disease, Hx Heart Attack Pulmonary Medical History: Reports: Hx Asthma Denies: Hx Bronchitis, Hx COPD, Hx Pneumonia Neurological Medical History: Denies: Hx Cerebrovascular Accident, Hx Seizures Endocrine Medical History: Reports: Hx Diabetes Mellitus Type 1 Renal/ Medical History: Reports: Hx End Stage Renal Disease, Hx Hemodialysis. Denies: Hx Peritoneal Dialysis Musculoskeltal Medical History: Denies Hx Arthritis Past Surgical History: Reports: Hx Vascular Surgery - fistula placement, Other - Amputation right lower extremity - Immunizations Hx Diphtheria, Pertussis, Tetanus Vaccination: Yes Review of Systems - Review of Systems Constitutional: No symptoms reported EENT: No symptoms reported Cardiovascular: No symptoms reported Respiratory: See HPI Gastrointestinal: No symptoms reported Genitourinary: No symptoms reported Female Genitourinary: No symptoms reported Musculoskeletal: No symptoms reported Skin: No symptoms reported Hematologic/Lymphatic: No symptoms reported Neurological/Psychological: No symptoms reported Physical Exam - Vital signs Vitals: Temp Pulse Resp BP Pulse Ox 99 F 80 20 145/71 H 100 03/16/17 01:46 03/16/17 01:46 03/16/17 01:46 03/16/17 01:46 03/16/17 01:46 - Notes Notes: PHYSICAL EXAMINATION: GENERAL: Chronically ill-appearing, but in no acute distress. HEAD: Atraumatic, normocephalic. EYES: Pupils equal round and reactive to light, extraocular movements intact, sclera anicteric, conjunctiva are normal. ENT: ear canals without erythema or foreign body, TMs pearly salazar with good bony landmarks, nares patent, oropharynx clear without exudates. Moist mucous membranes. Airway patent NECK: Normal range of motion, supple without lymphadenopathy LUNGS: Rales appreciated in lower lung bases, no wheezes or rhonchi. HEART: Regular rate and rhythm without murmurs EXTREMITIES: left BKA, otherwise Normal range of motion, no pitting edema. No cyanosis. NEUROLOGICAL: Cranial nerves grossly intact. Normal sensory/motor exams. SKIN: Warm, Dry, normal turgor, no rashes or lesions noted Course - Re-evaluation Re-evalutation: 03/16/17 06:31 chest x ray does show moderate CHF/edema. labwork unremarkable for pt today. Pt is 92-93% on room air here and when EMS picked her up. She is in no distress and having no obvious shortness of breath, she is not tachypneic or tachycardic , her blood pressure here is actually better than her norm. Patient is demanding to go home from the second she entered the ambulance doors here. She is due for dialysis today and I do not want her to miss that as if admitted to the hospital she would not be dialyzed for 2 days. I did advise that she follow -up with her primary care provider until them about her shortness of breath so that perhaps she can get oxygen at home. I will not start her on any medicines due to her stability and chronic issues. 03/16/17 06:33 - Vital Signs Vital signs: Temp Pulse Resp BP Pulse Ox 99 F 80 20 156/83 H 99 03/16/17 01:46 03/16/17 01:46 03/16/17 05:01 03/16/17 05:00 03/16/17 05:01 - Laboratory Result Diagrams: 03/16/17 05:27 03/16/17 03:30 Laboratory results interpreted by me: 03/16/17 03/16/17 03/16/17 03:30 03:30 05:27 RBC 2.77 L Hgb 8.4 L Hct 25.5 L RDW 16.8 H Plt Count 135 L Lymphocytes % 10.5 L Anion Gap 20 H BUN 53 H Creatinine 10.45 H Est GFR ( Amer) 5 L Est GFR (Non-Af Amer) 4 L Glucose 185 H Direct Bilirubin 0.8 H Alkaline Phosphatase 226 H NT-Pro-B Natriuret Pep [id number] H Total Protein 8.4 H Discharge - Discharge Clinical Impression: CHF (congestive heart failure) Qualifiers: Congestive heart failure type: unspecified Congestive heart failure chronicity : chronic Qualified Code(s): I50.9 - Heart failure, unspecified Condition: Stable Disposition: HOME, SELF-CARE Additional Instructions: Return immediately for any new or worsening symptoms. Follow up with primary care provider, call tomorrow to make followup appointment. Please go to dialysis today! If you cannot, please return as soon as possible.
[2017-03-16 03:49] LABS: VENOUS BLOOD BASE EXCESS -2.1 mmol/L; VENOUS BLOOD HCO3 23.8 mmol/L (20-32); VENOUS BLOOD PCO2 45.5 mmHg (35-63); VENOUS BLOOD PH 7.34 (7.30-7.42)
[2017-03-16 04:05] LABS: ALANINE AMINOTRANSFERASE 24 U/L (9-52); ALBUMIN 4.5 g/dL (3.5-5.0); ALKALINE PHOSPHATASE 226 U/L (38-126); ASPARTATE AMINO TRANSFERASE 28 U/L (14-36); BILIRUBIN,DIRECT 0.8 mg/dL (0.0-0.4); BILIRUBIN,TOTAL 0.8 mg/dL (0.2-1.3); BLOOD UREA NITROGEN 53 mg/dL (7-20); CALCIUM 8.9 mg/dL (8.4-10.2); CARBON DIOXIDE 23 mmol/L (22-30); CHLORIDE 101 mmol/L (98-107); GLUCOSE 185 mg/dL (75-110); TOTAL PROTEIN 8.4 g/dL (6.3-8.2)
[2017-03-16 04:13] LABS: SODIUM 143.7 mmol/L (137-145)
[2017-03-16 04:14] LABS: ANION GAP 20 (5-19)
[2017-03-16 05:44] LABS: ABSOLUTE BASOPHILS # (AUTO) 0.1 10^3/uL (0.0-0.2); ABSOLUTE EOSINOPHILS # (AUTO) 0.2 10^3/uL (0.0-0.6); ABSOLUTE LYMPHOCYTES (AUTO) 0.8 10^3/uL (0.5-4.7); ABSOLUTE MONOCYTES (AUTO) 0.8 10^3/uL (0.1-1.4); ABSOLUTE NEUT (AUTO) 5.4 10^3/uL (1.7-8.2); BASOPHILS % (AUTO) 0.8 % (0-2); EOSINOPHILS % (AUTO) 2.2 % (0-6); HEMATOCRIT 25.5 % (36.0-47.0); HEMOGLOBIN 8.4 g/dL (12.0-15.5); LYMPHOCYTES % (AUTO) 10.5 % (13-45); MEAN CORPUSCULAR HEMOGLOBIN 30.3 pg (27.0-33.4); MEAN CORPUSCULAR HGB CONC 32.9 g/dL (32.0-36.0); MEAN CORPUSCULAR VOLUME 92 fl (80-97); MONOCYTES % (AUTO) 10.7 % (3-13); PLATELET COUNT 135 10^3/uL (150-450); RED BLOOD COUNT 2.77 10^6/uL (3.72-5.28); RED CELL DISTRIBUTION WIDTH 16.8 % (11.5-14.0); SEGMENTED NEUTROPHILS % (AUTO) 75.8 % (42-78); TOTAL CELLS COUNTED % (AUTO) 100 %; WHITE BLOOD COUNT 7.2 10^3/uL (4.0-10.5)
[2017-03-16 06:51] VITALS: BP 160/92
== END 2017-03-16 07:07 | disposition home or self-care (01) ==
LOC: ER 01:21
DX: I50.9 Heart failure, unspecified (principal); R06.02 Shortness of breath; E11.9 Type 2 diabetes mellitus without complications; Z99.2 Dependence on renal dialysis
CPT/HCPCS: 36415; 71046; 80053; 82803; 83880; 85025; 99285

== ENCOUNTER 2017-03-25 18:38 | Emergency (ER) | payer MEDICARE, MEDICAID ==
--- NOTE | 2017-03-25 20:02 | ER Document Report ---
ED General - General Chief Complaint: Arm Problem Stated Complaint: PORT PROBLEMS Time Seen by Provider: 03/25/17 19:24 Mode of Arrival: Medic Information source: Patient, Relative Cannot obtain history due to: Other - Hard of hearing Notes: Patient had dialysis today and whenever her fistula was the access she had bleeding from the fistula site. A pressure dressing was placed and the bleeding initially stopped. When patient returned home bleeding restarted which prompted her to come in today. Patient additionally has a history of a right BKA that was performed in December of last year. Patient states that her physical therapist noted a retained staple to the stump and the family is requesting that this be removed as they were advised that it will need to be removed. Patient additionally reports that she has had some abdominal tenderness off and on for the past 4 days. Patient states that has started to improve although has not completely resolved. She does report nausea vomiting and diarrhea, patient states she is vomited twice today and had diarrhea 2 episodes. Patient additionally complains of left ear pain. Patient without any drainage or discharge from the ear. TRAVEL OUTSIDE OF THE [place] IN LAST 30 DAYS: No - HPI Onset: This evening Onset/Duration: Better Quality of pain: Achy Associated symptoms: Earache. denies: Chest pain, Nonproductive cough, Productive cough, Fever Exacerbated by: Denies Relieved by: Denies Similar symptoms previously: Yes Recently seen / treated by doctor: Yes - Related Data Allergies/Adverse Reactions: No Known Allergies Allergy (Verified 12/31/16 13:34) Past Medical History - General Information source: Patient, Relative Cannot obtain history due to: Other - [place] - Social History Smoking Status: Never Smoker Frequency of alcohol use: None Drug Abuse: None Occupation: None Lives with: Family Family History: CAD, DM, Hypertension Patient has suicidal ideation: No Patient has homicidal ideation: No - Past Medical History Cardiac Medical History: Reports: Hx Hypercholesterolemia, Hx Hypertension Denies: Hx Coronary Artery Disease, Hx Heart Attack Pulmonary Medical History: Reports: Hx Asthma Denies: Hx Bronchitis, Hx COPD, Hx Pneumonia Neurological Medical History: Denies: Hx Cerebrovascular Accident, Hx Seizures Endocrine Medical History: Reports: Hx Diabetes Mellitus Type 1 Renal/ Medical History: Reports: Hx End Stage Renal Disease, Hx Hemodialysis. Denies: Hx Peritoneal Dialysis Musculoskeltal Medical History: Denies Hx Arthritis Past Surgical History: Reports: Hx Orthopedic Surgery - Right BKA, Hx Vascular Surgery - fistula placement, Other - Amputation right lower extremity - Immunizations Hx Diphtheria, Pertussis, Tetanus Vaccination: Yes Review of Systems - Review of Systems Constitutional: No symptoms reported. denies: Fever EENT: Ear pain Cardiovascular: No symptoms reported. denies: Chest pain, Dyspnea Respiratory: No symptoms reported. denies: Cough, Short of breath Gastrointestinal: Abdominal pain Genitourinary: No symptoms reported Female Genitourinary: No symptoms reported Musculoskeletal: No symptoms reported Skin: Other - Retained staple to right stump Hematologic/Lymphatic: No symptoms reported Neurological/Psychological: No symptoms reported Physical Exam - Vital signs Vitals: Temp Pulse Resp BP Pulse Ox 98.1 F 89 16 134/66 H 99 03/25/17 18:54 03/25/17 18:54 03/25/17 18:54 03/25/17 18:54 03/25/17 18:54 - General General appearance: Appears well, Alert In distress: None - HEENT Head: Normocephalic Eyes: Normal Conjunctiva: Normal Ears: Other - Tenderness with movement of the left helix, no mastoid tenderness or swelling External canal: Erythema - left Tympanic membrane: Normal Mouth/Lips: Caries, Other - multiple missing/decayed teeth Mucous membranes: Normal Pharynx: Normal Neck: Normal, Supple. No: Lymphadenopathy - Respiratory Respiratory status: No respiratory distress Chest status: Nontender Breath sounds: Normal Chest palpation: Normal - Cardiovascular Rhythm: Regular Heart sounds: S1 appreciated, S2 appreciated - Abdominal Inspection: Morbidly Obese Distension: Distended Bowel sounds: Normal Tenderness: Tender - Epigastric Organomegaly: No organomegaly - Extremities General upper extremity: Normal strength, Other - Dressing in place over fistula to left AC, no active bleeding General lower extremity: Tender - Mild tenderness to right BKA stump, single retained staple to wound, no surrounding erythema, Normal strength - Neurological Duran Coma Scale Eye Opening: Spontaneous [place] Coma Scale Verbal: Oriented [place] Coma Scale Motor: Obeys Commands Duran Coma Scale Total: 15 - Psychological Associated symptoms: Normal affect, Normal mood - Skin Skin Temperature: Warm Skin Moisture: Dry Skin Color: Normal Course - Re-evaluation Re-evalutation: 03/25/17 23:[address] Rivera regarding patient presentation, reviewed diagnostic test results. Recommends transfer to facility with GI service capability for ERCP. patient with elevated liver function tests in addition to elevated bilirubin as well as sound findings concerning for common bile duct dilatation. Discussed plan of care with patient and family, family states that patient has previously been a patient at [facility] would prefer transfer to this facility. 03/26/17 00:12 Call placed to [facility] transfer center. 03/26/17 00:26 Consulted with MENA Womack at [facility], who does agree to be a literacy consultant on patient's case once she presents to their facility. Transfer center will call back with hospitalist to accept for transfer 03/26/17 00:[address] Loera who does agree to accept patient for transfer. Does recommend adding on a lactic acid. Advises that if patient seems to start to become septic or develop a fever advises giving her Zosyn or imipenem 03/26/17 01:06 Patient called provider to room stating that she now decides that she does not want to be transferred as she has had a lot of hospital admissions recently in which she has missed [facility] and [place] with her family. Patient advised at length the risks of doing so including risk of and serious morbidity. The patient has decided not to proceed with further recommended testing or treatment to determine the cause of her symptoms. The risk and alternatives to the recommendation were discussed the patient voiced understanding. The patient appears clinically to have the capacity to make this decision. The patient was instructed that they could return to the ER at any time to complete the testing or treatment. - Vital Signs Vital signs: Temp Pulse Resp BP Pulse Ox 99.1 F 94 16 153/76 H 95 03/25/17 23:57 03/25/17 23:57 03/25/17 23:57 03/25/17 23:57 03/25/17 23:57 - Laboratory Result Diagrams: 03/25/17 21:20 03/25/17 21:20 Laboratory results interpreted by me: 03/25/17 03/25/17 21:20 21:20 RBC 2.88 L Hgb 8.6 L Hct 26.0 L RDW 16.9 H Seg Neutrophils % 78.6 H Lymphocytes % 6.9 L Chloride 95 L Anion Gap 20 H BUN 42 H Creatinine 7.47 H Est GFR ( Amer) 7 L Est GFR (Non-Af Amer) 6 L Glucose 71 L Total Bilirubin 1.8 H Direct Bilirubin 1.4 H AST 115 H ALT 121 H Alkaline Phosphatase 223 H Total Protein 8.6 H Labs- Entire Visit 03/25/17 03/25/17 21:20 21:20 WBC 8.2 RBC 2.88 L Hgb 8.6 L Hct 26.0 L MCV 90 MCH 29.7 MCHC 33.0 RDW 16.9 H Plt Count 194 Seg Neutrophils % 78.6 H Lymphocytes % 6.9 L Monocytes % 9.2 Eosinophils % 3.3 Basophils % 2.0 Absolute Neutrophils 6.5 Absolute Lymphocytes 0.6 Absolute Monocytes 0.8 Absolute Eosinophils 0.3 Absolute Basophils 0.2 Sodium 139.0 Potassium 4.4 Chloride 95 L Carbon Dioxide 24 Anion Gap 20 H BUN 42 H Creatinine 7.47 H Est GFR ( Amer) 7 L Est GFR (Non-Af Amer) 6 L Glucose 71 L Calcium 8.8 Magnesium 1.8 Total Bilirubin 1.8 H Direct Bilirubin 1.4 H Neonat Total Bilirubin Not Reportable Neonat Direct Bilirubin Not Reportable Neonat Indirect Bili Not Reportable AST 115 H ALT 121 H Alkaline Phosphatase 223 H Total Protein 8.6 H Albumin 4.4 Lipase 41.5 - Diagnostic Test Radiology reviewed: Reports reviewed Discharge - Discharge Clinical Impression: Choledocholithiasis, resolved bleeding from dialysis fistula Abdominal pain Qualifiers: Abdominal location: upper abdomen, unspecified Qualified Code(s): R10.10 - Upper abdominal pain, unspecified Otitis externa Qualifiers: Otitis externa type: unspecified type Chronicity: acute Laterality: left Qualified Code(s): H60.502 - Unspecified acute noninfective otitis externa, left ear Disposition: AGAINST MEDICAL ADVICE Instructions: Abdominal Pain ([facility]), Otitis Externa ([facility]) Additional Instructions: You have decided to leave this facility AGAINST MEDICAL ADVICE, in doing so you are putting your life at risk. You should return immediately if you decide that you would like to continue your treatment and diagnostic evaluation of your abdominal pain. Return immediately for any new or worsening symptoms Followup with your primary care provider, call tomorrow to make a followup appointment Prescriptions: Neomy Sulf/Polymyx B Sulf/Hc [Cortisporin Ear Suspension] 4 drop OT QID #1 bottle Referrals: LOC DE JESUS MD [ACTIVE STAFF] - Follow up as needed MARCIA ENRIQUE MD [ACTIVE STAFF] - Follow up as needed MARTA CHEW PA-C [NO LOCAL MD] - Follow up tomorrow
--- NOTE | 2017-03-25 21:03 | RADIOLOGY REPORT (SQ) ---
EXAM DESCRIPTION: U/S ABDOMEN LIMITED W/O DOP COMPLETED DATE/TIME: 03/25/2017 8:41 pm REASON FOR STUDY: upper abd tenderness COMPARISON: CT of the abdomen and pelvis performed 03/13/2017 and ultrasound of the abdomen performed 03/09/2017 TECHNIQUE: Dynamic and static grayscale images acquired of the abdomen and recorded on PACS. Additio nal selected color Doppler and spectral images recorded. LIMITATIONS: None. FINDINGS: PANCREAS: Not visualized. LIVER: Re- demonstration of a cystic lesion within the left hepatic lobe. This is unchanged in appea calixto. LIVER VASCULATURE: Normal directional flow of the main portal vein and hepatic veins. GALLBLADDER: No stones. Normal wall thickness. No pericholecystic fluid. ULTRASOUND-DETECTED RESENDEZ'S SIGN: Positive. INTRAHEPATIC DUCTS AND COMMON DUCT: The common bile duct is enlarged, measuring up to 1.0 cm. INFERIOR VENA CAVA: Normal flow. AORTA: Incompletely imaged. The proximal aorta in is unremarkable. RIGHT KIDNEY: Normal size. Normal echogenicity. No solid or suspicious masses. No hydronephrosis. No calcifications. PERITONEAL AND RIGHT PLEURAL SPACE: No ascites or effusions. OTHER: No other significant findings. IMPRESSION: While no obstructing lesion is visualized, the common bile duct appears dilated, measuri ng up to 1.0 cm suggesting choledocholithiasis. No demonstrated cholelithiasis. Positive sonographi haily Forresters. TECHNICAL DOCUMENTATION: JOB ID: [id number] [employer]- All Rights Reserved
[2017-03-25 21:32] LABS: ABSOLUTE BASOPHILS # (AUTO) 0.2 10^3/uL (0.0-0.2); ABSOLUTE EOSINOPHILS # (AUTO) 0.3 10^3/uL (0.0-0.6); ABSOLUTE LYMPHOCYTES (AUTO) 0.6 10^3/uL (0.5-4.7); ABSOLUTE MONOCYTES (AUTO) 0.8 10^3/uL (0.1-1.4); ABSOLUTE NEUT (AUTO) 6.5 10^3/uL (1.7-8.2); EOSINOPHILS % (AUTO) 3.3 % (0-6); HEMOGLOBIN 8.6 g/dL (12.0-15.5); LYMPHOCYTES % (AUTO) 6.9 % (13-45); MEAN CORPUSCULAR HEMOGLOBIN 29.7 pg (27.0-33.4); MEAN CORPUSCULAR VOLUME 90 fl (80-97); MONOCYTES % (AUTO) 9.2 % (3-13); PLATELET COUNT 194 10^3/uL (150-450); RED BLOOD COUNT 2.88 10^6/uL (3.72-5.28); RED CELL DISTRIBUTION WIDTH 16.9 % (11.5-14.0); SEGMENTED NEUTROPHILS % (AUTO) 78.6 % (42-78); TOTAL CELLS COUNTED % (AUTO) 100 %; WHITE BLOOD COUNT 8.2 10^3/uL (4.0-10.5)
[2017-03-25] MEDS ORDERED: OXYCODONE-ACETAMINOPHEN 5-325 MG TABLET PO ONE (21:41)
[2017-03-25 22:47] LABS: ALANINE AMINOTRANSFERASE 121 U/L (9-52); ALBUMIN 4.4 g/dL (3.5-5.0); ALKALINE PHOSPHATASE 223 U/L (38-126); ASPARTATE AMINO TRANSFERASE 115 U/L (14-36); BILIRUBIN,DIRECT 1.4 mg/dL (0.0-0.4); BILIRUBIN,TOTAL 1.8 mg/dL (0.2-1.3); BLOOD UREA NITROGEN 42 mg/dL (7-20); CALCIUM 8.8 mg/dL (8.4-10.2); CARBON DIOXIDE 24 mmol/L (22-30); CHLORIDE 95 mmol/L (98-107); GLUCOSE 71 mg/dL (75-110); LIPASE 41.5 U/L (23-300); MAGNESIUM 1.8 mg/dL (1.6-2.3); POTASSIUM 4.4 mmol/L (3.6-5.0); TOTAL PROTEIN 8.6 g/dL (6.3-8.2)
[2017-03-25 22:53] LABS: ANION GAP 20 (5-19)
[2017-03-26] VITALS: BP 153/76
[2017-03-26] MEDS ORDERED: NEOMY SULF/POLYMYX B SULF/HC OTIC SUSP 10 ML AS ONE (00:09)
== END 2017-03-26 02:30 | disposition left against medical advice (07) ==
LOC: ER 18:38
DX: K80.50 Calculus of bile duct without cholangitis or cholecystitis without obstruction (principal); H92.02 Otalgia, left ear; R10.10 Upper abdominal pain, unspecified; H60.502 Unspecified acute noninfective otitis externa, left ear; R19.7 Diarrhea, unspecified; R11.2 Nausea with vomiting, unspecified; I12.0 Hypertensive chronic kidney disease with stage 5 chronic kidney disease or end stage renal disease; E10.22 Type 1 diabetes mellitus with diabetic chronic kidney disease; N18.6 End stage renal disease; Z89.511 Acquired absence of right leg below knee; Z99.2 Dependence on renal dialysis
CPT/HCPCS: 99284; 36415; 83690; 83735; 85025; 80053; 76705; A9270

== ENCOUNTER 2017-03-29 14:00 | Emergency (ER) | payer MEDICARE, MEDICAID ==
--- NOTE | 2017-03-29 14:59 | RADIOLOGY REPORT (SQ) ---
EXAM DESCRIPTION: CT ABD/PELVIS NO ORAL OR IV COMPLETED DATE/TIME: 03/29/2017 2:41 pm REASON FOR STUDY: abd pain COMPARISON: 03/13/2017 TECHNIQUE: CT scan of the abdomen and pelvis performed without intravenous or oral contrast. Images reviewed with lung, soft tissue, and bone windows. Reconstructed coronal and sagittal MPR images revi ewed. All images stored on PACS. All CT scanners at this facility use dose modulation, iterative reconstruction, and/or weight based d osing when appropriate to reduce radiation dose to as low as reasonably achievable (ALARA). [facility]: Dose Right [facility]: CareDose [facility]: Dose Right [facility]: Teradose 4D [facility]: Smart OneDoc RADIATION DOSE: CT Rad equipment meets quality standard of care and radiation dose reduction techniq ues were employed. CTDIvol: 19.5 mGy. DLP: 1042 mGy-cm.mGy. LIMITATIONS: Motion. No contrast. FINDINGS: LOWER CHEST: Cardiomegaly. NON-CONTRASTED LIVER, SPLEEN, ADRENALS: Evaluation limited by lack of IV contrast. No identified sign ificant masses. PANCREAS: No masses. No peripancreatic inflammatory changes. GALLBLADDER: No identified stones by CT criteria. No inflammatory changes to suggest cholecystitis. RIGHT KIDNEY AND URETER: No suspicious masses. Assessment limited by lack of IV contrast. No signif icant calcifications. No hydronephrosis or hydroureter. LEFT KIDNEY AND URETER: No suspicious masses. Assessment limited by lack of IV contrast. No signifi cant calcifications. No hydronephrosis or hydroureter. AORTA AND RETROPERITONEUM: No aneurysm. No retroperitoneal masses or adenopathy. BOWEL AND PERITONEAL CAVITY: Small amount of ascites is stable. APPENDIX: Normal. PELVIS, BLADDER, AND ABDOMINAL WALL:Normal urinary bladder. Small umbilical hernia. Body wall edema . BONES: No significant findings. OTHER: No other significant finding. IMPRESSION: Small amount of ascites. No significant change. COMMENT: Quality ID # [id number]: Final reports with documentation of one or more dose reduction techniques (e.g., Automated exposure control, adjustment of the mA and/or kV according to patient size, use of iterative reconstruction technique) TECHNICAL DOCUMENTATION: JOB ID: [id number]- All Rights Reserved
--- NOTE | 2017-03-29 15:43 | ER Document Report ---
ED GI/ - General Chief Complaint: Abdominal Pain Stated Complaint: ABDOMINAL PAIN Time Seen by Provider: 03/29/17 14:21 Mode of Arrival: Ambulatory Information source: Patient Notes: Patient is a 46-year-old female who presents to the emergency department today with complaints of abdominal pain with associated abdominal swelling. Patient was seen here this facility on 03/25/2017 and was arranged to be transferred to [facility] for ERCP secondary to elevated liver function test, elevated bilirubin, and ultrasound findings concerning for common bile duct dilation. Patient elected to not be transferred and signed out AGAINST MEDICAL ADVICE secondary to "a lot of hospital admissions recently". Patient presents today stating she is ready to be transferred to have "whatever she needs to be done to be done". Patient states she her pain has persisted. Patient continues to mention left ear pain as well. TRAVEL OUTSIDE OF THE [place] IN LAST 30 DAYS: No - Related Data Allergies/Adverse Reactions: No Known Allergies Allergy (Verified 03/29/17 14:01) Past Medical History - General Information source: Patient - Social History Smoking Status: Never Smoker Cigarette use (# per day): No Chew tobacco use (# tins/day): No Frequency of alcohol use: None Drug Abuse: None Lives with: Family Family History: Reviewed & Not Pertinent, CAD, DM, Hypertension Patient has suicidal ideation: No Patient has homicidal ideation: No - Past Medical History Cardiac Medical History: Reports: Hx Hypercholesterolemia, Hx Hypertension Pulmonary Medical History: Reports: Hx Asthma Endocrine Medical History: Reports: Hx Diabetes Mellitus Type 1 Renal/ Medical History: Reports: Hx End Stage Renal Disease, Hx Hemodialysis Past Surgical History: Reports: Hx Orthopedic Surgery - Right BKA, Hx Vascular Surgery - fistula placement, Other - Amputation right lower extremity - Immunizations Hx Diphtheria, Pertussis, Tetanus Vaccination: Yes Review of Systems - Review of Systems Constitutional: No symptoms reported EENT: See HPI, Ear pain - left Cardiovascular: No symptoms reported Respiratory: No symptoms reported Gastrointestinal: See HPI, Abdomen distended, Abdominal pain, Nausea. denies: Vomiting Genitourinary: No symptoms reported Female Genitourinary: No symptoms reported Musculoskeletal: No symptoms reported Skin: No symptoms reported Hematologic/Lymphatic: No symptoms reported Neurological/Psychological: No symptoms reported -: Yes All other systems reviewed and negative Physical Exam - Vital signs Vitals: Temp Pulse Resp BP Pulse Ox 98.6 F 93 16 148/75 H 96 03/29/17 14:13 03/29/17 14:13 03/29/17 14:13 03/29/17 14:13 03/29/17 14:13 - Notes Notes: Physical Exam: General: Alert, appears at baseline according to records. HEENT: Normocephalic. Atraumatic. PERRL. Extraocular movements intact. Oropharynx clear. Left ear cerumen impaction, no evidence of mastoiditis. Difficulty hearing at baseline according to records. Neck: Supple. Non-tender. Respiratory: No respiratory distress. Clear and equal breath sounds bilaterally. Cardiovascular: Regular rate and rhythm. Abdominal: Large pannus. Abdominal distention. Hypoactive bowel sounds. Diffusely tender with palpation. Back: Non-tender. No deformity or step off. Extremities: Moves all four extremities. Upper extremities: Normal inspection. Normal ROM. Lower extremities: Normal inspection. No edema. Normal ROM. Neurological: Cognition at baseline according to records Psychological: Normal affect. Normal Mood. Skin: Warm. Dry. Normal color. Course - Vital Signs Vital signs: Temp Pulse Resp BP Pulse Ox 98.6 F 93 16 148/75 H 96 03/29/17 14:13 03/29/17 14:13 03/29/17 14:13 03/29/17 14:13 03/29/17 14:13 Scribe Documentation - Scribe Written by Luis:: Luis Quinn, 03/29/2017 [id number] acting as scribe for :: Flakito
[2017-03-29 17:55] LABS: ABSOLUTE BASOPHILS # (AUTO) 0.2 10^3/uL (0.0-0.2); ABSOLUTE EOSINOPHILS # (AUTO) 0.2 10^3/uL (0.0-0.6); ABSOLUTE LYMPHOCYTES (AUTO) 0.6 10^3/uL (0.5-4.7); ABSOLUTE MONOCYTES (AUTO) 0.7 10^3/uL (0.1-1.4); ABSOLUTE NEUT (AUTO) 7.1 10^3/uL (1.7-8.2); EOSINOPHILS % (AUTO) 2.4 % (0-6); HEMATOCRIT 27.9 % (36.0-47.0); HEMOGLOBIN 9.2 g/dL (12.0-15.5); LYMPHOCYTES % (AUTO) 6.7 % (13-45); MEAN CORPUSCULAR HGB CONC 32.9 g/dL (32.0-36.0); MEAN CORPUSCULAR VOLUME 91 fl (80-97); PLATELET COUNT 164 10^3/uL (150-450); RED BLOOD COUNT 3.06 10^6/uL (3.72-5.28); RED CELL DISTRIBUTION WIDTH 17.1 % (11.5-14.0); SEGMENTED NEUTROPHILS % (AUTO) 80.9 % (42-78); TOTAL CELLS COUNTED % (AUTO) 100 %; WHITE BLOOD COUNT 8.7 10^3/uL (4.0-10.5)
[2017-03-29 18:09] LABS: ALANINE AMINOTRANSFERASE 53 U/L (9-52); ALBUMIN 4.7 g/dL (3.5-5.0); ALKALINE PHOSPHATASE 205 U/L (38-126); ASPARTATE AMINO TRANSFERASE 23 U/L (14-36); BILIRUBIN,DIRECT 1.8 mg/dL (0.0-0.4); BILIRUBIN,TOTAL 1.8 mg/dL (0.2-1.3); BLOOD UREA NITROGEN 75 mg/dL (7-20); CALCIUM 9.2 mg/dL (8.4-10.2); GLUCOSE 59 mg/dL (75-110); LIPASE 45.1 U/L (23-300); MAGNESIUM 2.2 mg/dL (1.6-2.3); TOTAL PROTEIN 9.1 g/dL (6.3-8.2)
[2017-03-29 18:18] LABS: CARBON DIOXIDE 21 mmol/L (22-30); CHLORIDE 96 mmol/L (98-107); POTASSIUM 5.5 mmol/L (3.6-5.0); SODIUM 142.1 mmol/L (137-145)
[2017-03-29 18:19] LABS: ANION GAP 25 (5-19)
[2017-03-29] MEDS ORDERED: PIPERACILLIN/TAZOBACTAM 3.375 GM VIAL IV ONE (19:39)
[2017-03-29] MEDS ORDERED: MORPHINE SULFATE 10 MG/ML INJ IV ONE (21:48)
[2017-03-29 21:54] VITALS: BP 143/85
== END 2017-03-29 22:25 | disposition short-term general hospital (02) ==
LOC: ER 14:00
DX: R10.84 Generalized abdominal pain (principal); R14.0 Abdominal distension (gaseous); I12.0 Hypertensive chronic kidney disease with stage 5 chronic kidney disease or end stage renal disease; E10.22 Type 1 diabetes mellitus with diabetic chronic kidney disease; N18.6 End stage renal disease; Z99.2 Dependence on renal dialysis; J45.909 Unspecified asthma, uncomplicated; R11.0 Nausea; H61.22 Impacted cerumen, left ear; H92.02 Otalgia, left ear
CPT/HCPCS: 99285; 96375; 96365; 36415; 82962; 82248; 83690; 83735; 85025; 80053; 74176; J2270; J2543

== ENCOUNTER 2017-04-14 11:20 | Emergency (ER) | payer MEDICARE, MEDICAID ==
[2017-04-14] MEDS ORDERED: NORMAL SALINE 1000 ML 1,000 ML IV PRN (11:44)
[2017-04-14] MEDS ORDERED: ONDANSETRON 4 MG TAB.RAPDIS PO ONE (11:44)
--- NOTE | 2017-04-14 11:44 | ER Document Report ---
ED Medical Screen (RME) - General Chief Complaint: Abdominal Pain Stated Complaint: ABDOMINAL PAIN Time Seen by Provider: 04/14/17 11:43 Mode of Arrival: Ambulatory Information source: Patient Notes: 46-year-old female referred to the emergency room because of nausea and abdominal pain. Patient's states that she was evaluated last week and sent to [facility] for possible bowel obstruction and was told to [facility] that all she had was constipation. Despite the definitive management at [facility] last week, she presents today with abdominal pain and nausea. TRAVEL OUTSIDE OF THE [place] IN LAST 30 DAYS: No - Related Data Allergies/Adverse Reactions: No Known Allergies Allergy (Verified 04/14/17 11:20) Past Medical History - Social History Chew tobacco use (# tins/day): No Drug Abuse: None - Past Medical History Cardiac Medical History: Reports: Hx Hypercholesterolemia, Hx Hypertension Denies: Hx Coronary Artery Disease, Hx Heart Attack Pulmonary Medical History: Reports: Hx Asthma Denies: Hx Bronchitis, Hx COPD, Hx Pneumonia Neurological Medical History: Denies: Hx Cerebrovascular Accident, Hx Seizures Endocrine Medical History: Reports: Hx Diabetes Mellitus Type 1 Renal/ Medical History: Reports: Hx End Stage Renal Disease, Hx Hemodialysis. Denies: Hx Peritoneal Dialysis Musculoskeltal Medical History: Denies Hx Arthritis Past Surgical History: Reports: Hx Orthopedic Surgery - Right BKA, Hx Vascular Surgery - fistula placement, Other - Amputation right lower extremity - Immunizations Hx Diphtheria, Pertussis, Tetanus Vaccination: Yes History of Influenza Vaccine for 11/2016 - 04/2017 Season: Yes Influenza Administration Date for 11/2016 - 04/2017 Season: 10/28/16 Physical Exam - Vital signs Vitals: Temp Pulse Resp BP Pulse Ox 98.0 F 87 19 159/76 H 100 04/14/17 11:34 04/14/17 11:34 04/14/17 11:34 04/14/17 11:34 04/14/17 11:34 Course - Vital Signs Vital signs: Temp Pulse Resp BP Pulse Ox 98.0 F 87 19 159/76 H 100 04/14/17 11:34 04/14/17 11:34 04/14/17 11:34 04/14/17 11:34 04/14/17 11:34
--- NOTE | 2017-04-14 13:01 | RADIOLOGY REPORT (SQ) ---
EXAM DESCRIPTION: ACUTE ABDOMEN SERIES COMPLETED DATE/TIME: 04/14/2017 12:47 pm REASON FOR STUDY: nausea, abdominal pain COMPARISON: None. NUMBER OF VIEWS: Three views. TECHNIQUE: Frontal chest, supine abdomen and upright/decubitus abdomen radiographic images acquired. LIMITATIONS: None. FINDINGS: CHEST: Pulmonary vascular congestion. FREE AIR: None. No abnormal gas collections. BOWEL GAS PATTERN: Nonobstructive pattern. No dilated loops or air fluid levels. CALCIFICATIONS: No suspicious calcifications. HARDWARE: None in the abdomen. SOFT TISSUES: No gross mass or suggestion of organomegaly. BONES: No acute fracture. No worrisome bone lesions. OTHER: No other significant finding. IMPRESSION: NO RADIOGRAPHIC EVIDENCE FOR ACUTE ABDOMINAL DISEASE. TECHNICAL DOCUMENTATION: JOB ID: [id number] [employer]- All Rights Reserved
[2017-04-14 13:48] LABS: ABSOLUTE BASOPHILS # (AUTO) 0.1 10^3/uL (0.0-0.2); ABSOLUTE EOSINOPHILS # (AUTO) 0.1 10^3/uL (0.0-0.6); ABSOLUTE LYMPHOCYTES (AUTO) 0.7 10^3/uL (0.5-4.7); ABSOLUTE MONOCYTES (AUTO) 0.7 10^3/uL (0.1-1.4); ABSOLUTE NEUT (AUTO) 4.8 10^3/uL (1.7-8.2); BASOPHILS % (AUTO) 1.2 % (0-2); EOSINOPHILS % (AUTO) 1.4 % (0-6); HEMATOCRIT 30.1 % (36.0-47.0); HEMOGLOBIN 9.8 g/dL (12.0-15.5); LYMPHOCYTES % (AUTO) 10.9 % (13-45); MEAN CORPUSCULAR HEMOGLOBIN 30.2 pg (27.0-33.4); MEAN CORPUSCULAR HGB CONC 32.6 g/dL (32.0-36.0); MEAN CORPUSCULAR VOLUME 93 fl (80-97); MONOCYTES % (AUTO) 11.6 % (3-13); PLATELET COUNT 165 10^3/uL (150-450); RED BLOOD COUNT 3.25 10^6/uL (3.72-5.28); RED CELL DISTRIBUTION WIDTH 17.4 % (11.5-14.0); SEGMENTED NEUTROPHILS % (AUTO) 74.9 % (42-78); TOTAL CELLS COUNTED % (AUTO) 100 %; WHITE BLOOD COUNT 6.4 10^3/uL (4.0-10.5)
[2017-04-14 14:08] LABS: ALBUMIN 4.7 g/dL (3.5-5.0); ANION GAP 17 (5-19); BLOOD UREA NITROGEN 25 mg/dL (7-20); CALCIUM 9.6 mg/dL (8.4-10.2); CARBON DIOXIDE 28 mmol/L (22-30); CHLORIDE 95 mmol/L (98-107); GLUCOSE 138 mg/dL (75-110); POTASSIUM 3.7 mmol/L (3.6-5.0); SODIUM 139.9 mmol/L (137-145); TOTAL PROTEIN 8.6 g/dL (6.3-8.2)
[2017-04-14 14:10] LABS: ALANINE AMINOTRANSFERASE 21 U/L (9-52); ALKALINE PHOSPHATASE 192 U/L (38-126); ASPARTATE AMINO TRANSFERASE 27 U/L (14-36); BILIRUBIN,DIRECT 1.3 mg/dL (0.0-0.4); BILIRUBIN,TOTAL 1.7 mg/dL (0.2-1.3)
--- NOTE | 2017-04-14 15:17 | RADIOLOGY REPORT (SQ) ---
EXAM DESCRIPTION: CT ABD/PELVIS NO ORAL OR IV COMPLETED DATE/TIME: 04/14/2017 3:00 pm REASON FOR STUDY: Abdominal pain COMPARISON: 03/29/2017 TECHNIQUE: CT scan of the abdomen and pelvis performed without intravenous or oral contrast. Images reviewed with lung, soft tissue, and bone windows. Reconstructed coronal and sagittal MPR images revi ewed. All images stored on PACS. All CT scanners at this facility use dose modulation, iterative reconstruction, and/or weight based d osing when appropriate to reduce radiation dose to as low as reasonably achievable (ALARA). [facility]: Dose Right [facility]: CareDose [facility]: Dose Right [facility]: Teradose 4D [facility]: Smart [employer] RADIATION DOSE: CT Rad equipment meets quality standard of care and radiation dose reduction techniq ues were employed. CTDIvol: 18.3 mGy. DLP: 982 mGy-cm.mGy. LIMITATIONS: None. FINDINGS: LOWER CHEST: Cardiomegaly. NON-CONTRASTED LIVER, SPLEEN, ADRENALS: Evaluation limited by lack of IV contrast. No identified sign ificant masses. Hepatic sub capsular nodularity. PANCREAS: No masses. No peripancreatic inflammatory changes. GALLBLADDER: No identified stones by CT criteria. No inflammatory changes to suggest cholecystitis. RIGHT KIDNEY AND URETER: No suspicious masses. Assessment limited by lack of IV contrast. No signif icant calcifications. No hydronephrosis or hydroureter. LEFT KIDNEY AND URETER: No suspicious masses. Assessment limited by lack of IV contrast. No signifi cant calcifications. No hydronephrosis or hydroureter. AORTA AND RETROPERITONEUM: No aneurysm. No retroperitoneal masses or adenopathy. BOWEL AND PERITONEAL CAVITY: Small amount of ascites. No evidence of obstruction. APPENDIX: Normal. PELVIS, BLADDER, AND ABDOMINAL WALL:Body wall edema. Small umbilical hernia. BONES: No significant findings. OTHER: No other significant finding. IMPRESSION: Small amount of ascites. No significant change. COMMENT: Quality ID # [id number]: Final reports with documentation of one or more dose reduction techniques (e.g., Automated exposure control, adjustment of the mA and/or kV according to patient size, use of iterative reconstruction technique) TECHNICAL DOCUMENTATION: JOB ID: [id number]- All Rights Reserved
--- NOTE | 2017-04-14 16:23 | ER Document Report ---
ED GI/ - General Chief Complaint: Abdominal Pain Stated Complaint: ABDOMINAL PAIN Time Seen by Provider: 04/14/17 11:43 Mode of Arrival: Ambulatory Notes: Patient says she is having pain in her mid epigastric region of her abdomen for the past couple of days. She has had some nausea and has vomited a couple of times this morning. She says she is having regular bowel movements, some being diarrhea, her last being yesterday. Patient was seen here a couple weeks ago for similar symptoms and felt that she may have a bowel obstruction and she was transferred from here to [facility], where she was apparently told that her pain was due to constipation and not a bowel obstruction. She did not have a surgical procedure there. Patient is a dialysis patient on Monday, , and Monday through a shunt in her left arm. Her music director is Dr. Bauer. TRAVEL OUTSIDE OF THE [place] IN LAST 30 DAYS: No - Related Data Allergies/Adverse Reactions: No Known Allergies Allergy (Verified 04/14/17 11:20) Past Medical History - General Information source: Patient - Social History Smoking Status: Never Smoker Chew tobacco use (# tins/day): No Drug Abuse: None Family History: Reviewed & Not Pertinent, CAD, DM, Hypertension Patient has suicidal ideation: No Patient has homicidal ideation: No - Past Medical History Cardiac Medical History: Reports: Hx Hypercholesterolemia, Hx Hypertension Pulmonary Medical History: Reports: Hx Asthma Neurological Medical History: Denies: Hx Cerebrovascular Accident, Hx Seizures Endocrine Medical History: Reports: Hx Diabetes Mellitus Type 1 Renal/ Medical History: Reports: Hx End Stage Renal Disease, Hx Hemodialysis Past Surgical History: Reports: Hx Orthopedic Surgery - Right BKA, Hx Vascular Surgery - fistula placement, Other - Amputation right lower extremity - Immunizations Hx Diphtheria, Pertussis, Tetanus Vaccination: Yes Review of Systems - Review of Systems Notes: REVIEW OF SYSTEMS: CONSTITUTIONAL : Denies fever. EENT: Denies eye, ear, nose or mouth or throat pain or other symptoms. CARDIOVASCULAR: Denies chest pain. RESPIRATORY: Denies cough, chest congestion, or shortness of breath. GASTROINTESTINAL: See HPI. GENITOURINARY: Denies difficulty or painful urinating, urinary frequency, blood in urine. Dialysis patient. MUSCULOSKELETAL: Denies back or neck pain. Denies joint pain or swelling. SKIN: Denies rash or skin lesions. NEUROLOGICAL: Denies LOC or altered mental status. Denies headache. Denies sensory loss or motor deficits. ALL OTHER SYSTEMS REVIEWED AND NEGATIVE. Physical Exam - Vital signs Vitals: Temp Pulse Resp BP Pulse Ox 98.0 F 87 19 159/76 H 100 04/14/17 11:34 04/14/17 11:34 04/14/17 11:34 04/14/17 11:34 04/14/17 11:34 Interpretation: Normal - Notes Notes: PHYSICAL EXAMINATION: GENERAL: Well-appearing, in no acute distress. HEAD: Atraumatic, normocephalic. EYES: Pupils equal round and reactive to light, extraocular movements intact. ENT: oropharynx clear without exudates. Moist mucous membranes. NECK: Normal range of motion, supple. LUNGS: Breath sounds clear and equal bilaterally. HEART: Regular rate and rhythm without murmurs. ABDOMEN: Soft, tender in the epigastrium, but no guarding and no rebound and no masses felt. No bruits heard. BACK: No tenderness throughout entire back. EXTREMITIES: Normal range of motion without pain. Dialysis shunt in the left arm. 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 Normal gait. Normal sensory, motor, and reflex exams. Awake, alert, and oriented x3. Cranial nerves normal. PSYCH: Normal mood, normal affect. SKIN: Warm, dry, no rashes. Course - Re-evaluation Re-evalutation: 04/14/17 20:05 Patient's entire workup including CT scan of the abdomen without contrast are all essentially normal. - Vital Signs Vital signs: Temp Pulse Resp BP Pulse Ox 98.1 F 88 18 156/81 H 96 04/14/17 17:18 04/14/17 17:18 04/14/17 17:18 04/14/17 17:18 04/14/17 17:18 - Laboratory Result Diagrams: 04/14/17 13:30 04/14/17 13:30 Laboratory results interpreted by me: 04/14/17 04/14/17 13:30 13:30 RBC 3.25 L Hgb 9.8 L Hct 30.1 L RDW 17.4 H Lymphocytes % 10.9 L Chloride 95 L BUN 25 H Creatinine 5.10 H Est GFR ( Amer) 11 L Est GFR (Non-Af Amer) 9 L Glucose 138 H Total Bilirubin 1.7 H Direct Bilirubin 1.3 H Alkaline Phosphatase 192 H Total Protein 8.6 H Discharge - Discharge Clinical Impression: Abdominal pain, Normal physical examination Condition: Stable Disposition: HOME, SELF-CARE Additional Instructions: ABDOMINAL PAIN: There are many causes of abdominal pain. Pain can mean a serious problem requiring surgery (such as appendicitis). It can also be an innocent problem that goes away on its own (such as a viral infection). Often, time must pass to determine the cause of pain. The physician does not feel that hospitalization is necessary, at present. Things may change within the next 24 hours. Call the doctor or come back for re- examination if any problems occur, such as: (1) Pain that becomes more severe, steady, or becomes concentrated in one specific area. Also, pain that is more severe with movement or coughing. (2) Vomiting that persists or becomes more frequent. (3) Blood in the vomitus, urine, or bowel movements. Blood in the stool may have a tarry or black appearance. (4) Shaking chills or fever greater than 100 degrees F. (5) The abdomen becomes more distended or swollen. (6) Bowel movements cease. (7) Failure to improve as expected. NORMAL EXAM AND WORKUP: At this time, your examination and workup show no significant abnormality. No significant abnormal physical findings are noted. All laboratory, EKG, and imaging (x-ray, CT scans, ultrasound) studies that were ordered show no significant abnormality. Although your examination and all studies that were ordered showed no significant abnormal finding, there are no examinations and no studies that are 100% accurate. There is always the possibility that some abnormality could exist and not be detected with physical examination or within the limits and capabilities of laboratory and other studies. You should return or follow up as you were instructed on your visit today for further evaluation if your symptoms do not resolve. CONSTIPATION: Constipation is a common problem. It is especially likely as you get older. Constipation is a common cause of abdominal pain, but sometimes causes no symptoms at all. Causes of constipation include certain medications, dehydration, diets, inactivity, and low-fiber intake. Rarely, it can be a symptom of underlying disease. The physician has evaluated you for this. Avoid constipation by eating a diet high in fiber, fruits, and vegetables. Drink plenty of liquids. Get regular exercise. If possible, avoid constipating medicines like narcotic pain medication. Some vitamin tablets can cause constipation. Stool softeners may be needed for difficult cases. An excellent stool softener is Konsyl which is available at [employer], and [employer] drug store. Just add a teaspoon to a glass of pineapple or orange juice daily or twice a day if needed. Laxatives are useful for occasional constipation. You should use them only when necessary. Too-frequent use can make your bowels dependent on them. Some over the counter laxatives available without prescription are: Milk of Magnesia, 1-2 tablespoons twice a day Dulcolax, 5 mg pill or 10 mg suppository. Citrate of Magnesia, 4-5 ounces a day for a day or two For acute constipation, Fleet's Enemas and Dulcolax suppositories are helpful. Chronic, exterminator helper termite use of laxatives or enemas is not a good idea. Your bowel may become dependant on them. You do not need to have a bowel movement every day. Many people do fine with a bowel movement every three or four days. You should call your doctor or return for re-evaluation if you pass blood in the stool, or if you develop fever or increasing abdominal pain. BULK LAXATIVES: Bulk laxatives make the stool softer and bulkier. They're useful for preventing constipation. You can choose between psyllium, methylcellulose, and polycarbophil. They are available without a prescription. Psyllium brand names include Konsyl, Metamucil, Perdiem, Effer-Syllium and Hydrocil. It's available as powder, flavored drink powder, or chewable. The usual dose of psyllium powder is one heaping teaspoon in water each morning, increasing to twice a day if needed. [place] juice can disguise the slightly grainy texture. Methylcellulose is marketed as Citrucel and other brands. The average dose is two grams in a cup of water one to three times a day. Polycarbophil is marketed as Fiber-Con. Take two tablets with a cup of water one to three times a day. LAXATIVE: A laxative agent has been prescribed for your condition. This should result in passage of stool within 12 hours. Some mild intestinal cramping is common as the hard stool begins to move. You may have loose or runny stools for a short time. Contact your doctor if there is severe cramping, vomiting, or passage of blood. Return for further care if this medicine fails to improve your condition. FOLLOW-UP CARE: If you have been referred to a physician for follow-up care, call the physician s office for an appointment as you were instructed or within the next two days. If you experience worsening or a significant change in your symptoms, notify the physician immediately or return to the Emergency Department at any time for re-evaluation. Referrals: MARTA CHEW PA-C [NO LOCAL MD] - Follow up in 3-5 days
[2017-04-14] MEDS ORDERED: ONDANSETRON 4 MG TAB.RAPDIS ONE (16:30)
[2017-04-14 17:36] VITALS: BP 156/81
== END 2017-04-14 17:18 | disposition home or self-care (01) ==
LOC: ER 11:20
DX: R10.13 Epigastric pain (principal); R11.2 Nausea with vomiting, unspecified; R19.7 Diarrhea, unspecified; Z99.2 Dependence on renal dialysis
CPT/HCPCS: 99284; 36415; 83690; 85025; 80053; 74022; 74176; A9270; S0119

== ENCOUNTER 2017-04-21 15:20 | Emergency (ER) | payer MEDICARE, MEDICAID ==
[2017-04-21 15:27] VITALS: BP 153/81
--- NOTE | 2017-04-21 16:06 | ER Document Report ---
ED Medical Screen (RME) - General Chief Complaint: Abdominal Pain Stated Complaint: ABDOMINAL PAIN Time Seen by Provider: 04/21/17 16:04 Mode of Arrival: Wheelchair Information source: Patient, Relative TRAVEL OUTSIDE OF THE [place] IN LAST 30 DAYS: No - HPI Patient complains to provider of: abd pain Onset: Other - pt has ESRD on HD with c/o abd. pain for the past several days. Has not had a BM in "many days." - Related Data Allergies/Adverse Reactions: No Known Allergies Allergy (Verified 04/21/17 15:50) Past Medical History - Social History Chew tobacco use (# tins/day): No Frequency of alcohol use: None Drug Abuse: None - Past Medical History Cardiac Medical History: Reports: Hx Hypercholesterolemia, Hx Hypertension Denies: Hx Coronary Artery Disease, Hx Heart Attack Pulmonary Medical History: Reports: Hx Asthma Denies: Hx Bronchitis, Hx COPD, Hx Pneumonia Neurological Medical History: Denies: Hx Cerebrovascular Accident, Hx Seizures Endocrine Medical History: Reports: Hx Diabetes Mellitus Type 1 Renal/ Medical History: Reports: Hx End Stage Renal Disease, Hx Hemodialysis, Hx Peritoneal Dialysis Musculoskeltal Medical History: Denies Hx Arthritis Past Surgical History: Reports: Hx Orthopedic Surgery - Right BKA, Hx Vascular Surgery - fistula placement, Other - Amputation right lower extremity - Immunizations Hx Diphtheria, Pertussis, Tetanus Vaccination: Yes History of Influenza Vaccine for 11/2016 - 04/2017 Season: Yes Influenza Administration Date for 11/2016 - 04/2017 Season: 10/28/16 Physical Exam - Vital signs Vitals: Temp Pulse Resp BP Pulse Ox 98.5 F 90 14 153/81 H 100 04/21/17 15:26 04/21/17 15:26 04/21/17 15:26 04/21/17 15:26 04/21/17 15:26 Course - Vital Signs Vital signs: Temp Pulse Resp BP Pulse Ox 98.5 F 90 14 153/81 H 100 04/21/17 15:26 04/21/17 15:26 04/21/17 15:26 04/21/17 15:26 04/21/17 15:26
[2017-04-21 16:51] LABS: ALANINE AMINOTRANSFERASE 20 U/L (9-52); ALBUMIN 4.5 g/dL (3.5-5.0); ALKALINE PHOSPHATASE 186 U/L (38-126); ANION GAP 19 (5-19); ASPARTATE AMINO TRANSFERASE 21 U/L (14-36); BILIRUBIN,DIRECT 1.4 mg/dL (0.0-0.4); BILIRUBIN,TOTAL 1.8 mg/dL (0.2-1.3); BLOOD UREA NITROGEN 20 mg/dL (7-20); CALCIUM 9.5 mg/dL (8.4-10.2); CARBON DIOXIDE 24 mmol/L (22-30); CHLORIDE 97 mmol/L (98-107); GLUCOSE 132 mg/dL (75-110); LIPASE 66.8 U/L (23-300); POTASSIUM 4.1 mmol/L (3.6-5.0); SODIUM 140.3 mmol/L (137-145)
--- NOTE | 2017-04-21 17:01 | RADIOLOGY REPORT (SQ) ---
EXAM DESCRIPTION: ACUTE ABDOMEN SERIES COMPLETED DATE/TIME: 04/21/2017 4:36 pm REASON FOR STUDY: abd pain COMPARISON: CT abdomen pelvis 04/14/2017 NUMBER OF VIEWS: Three views. TECHNIQUE: Frontal chest, supine abdomen and upright abdomen radiographic images acquired. LIMITATIONS: None. FINDINGS: CHEST: Stable marked cardiomegaly. No pleural effusion. No acute infiltrates. No pneumo thorax. FREE AIR: None. No abnormal gas collections. BOWEL GAS PATTERN: Nonobstructive pattern. No dilated loops or air fluid levels. CALCIFICATIONS: No suspicious calcifications. HARDWARE: None in the abdomen. SOFT TISSUES: No gross mass or suggestion of organomegaly. BONES: No acute fracture. No worrisome bone lesions. OTHER: No other significant finding. IMPRESSION: Nonobstructive bowel gas pattern. No acute infiltrates. Stable marked cardiomegaly. TECHNICAL DOCUMENTATION: JOB ID: [id number] [employer]- All Rights Reserved Reading location - IP/workstation name: [facility]
[2017-04-21 17:38] LABS: ABSOLUTE BASOPHILS # (AUTO) 0.1 10^3/uL (0.0-0.2); ABSOLUTE EOSINOPHILS # (AUTO) 0.1 10^3/uL (0.0-0.6); ABSOLUTE LYMPHOCYTES (AUTO) 0.7 10^3/uL (0.5-4.7); ABSOLUTE MONOCYTES (AUTO) 0.7 10^3/uL (0.1-1.4); ABSOLUTE NEUT (AUTO) 4.3 10^3/uL (1.7-8.2); BASOPHILS % (AUTO) 1.1 % (0-2); EOSINOPHILS % (AUTO) 1.8 % (0-6); LYMPHOCYTES % (AUTO) 12.3 % (13-45); MEAN CORPUSCULAR HEMOGLOBIN 29.9 pg (27.0-33.4); MEAN CORPUSCULAR HGB CONC 32.3 g/dL (32.0-36.0); MEAN CORPUSCULAR VOLUME 92 fl (80-97); MONOCYTES % (AUTO) 11.3 % (3-13); PLATELET COUNT 186 10^3/uL (150-450); RED BLOOD COUNT 3.35 10^6/uL (3.72-5.28); RED CELL DISTRIBUTION WIDTH 17.1 % (11.5-14.0); SEGMENTED NEUTROPHILS % (AUTO) 73.5 % (42-78); TOTAL CELLS COUNTED % (AUTO) 100 %; WHITE BLOOD COUNT 5.8 10^3/uL (4.0-10.5)
--- NOTE | 2017-04-21 18:16 | ER Document Report ---
ED GI/ - General Chief Complaint: Abdominal Pain Stated Complaint: ABDOMINAL PAIN Time Seen by Provider: 04/21/17 16:04 Mode of Arrival: Wheelchair Notes: The patient is a 46-year-old female, past medical history ESRD ([facility]), chronic ascites and abdominal pain, presents with her usual epigastric abdominal pain. She is requesting skilled nursing placement because she does not want to live in the same trailer that her brother lives in. She has already told her primary care provider, Karis Chew, about her wishes and they are already starting to work on placement. Patient denies fevers, nausea, vomiting , diarrhea, constipation, worsening abdominal pain, chest pain or shortness of breath. TRAVEL OUTSIDE OF THE [place] IN LAST 30 DAYS: No - Related Data Allergies/Adverse Reactions: No Known Allergies Allergy (Verified 04/21/17 15:50) Past Medical History - General Information source: Patient, Relative - Social History Smoking Status: Never Smoker Chew tobacco use (# tins/day): No Frequency of alcohol use: None Drug Abuse: None Family History: Reviewed & Not Pertinent, CAD, DM, Hypertension Patient has suicidal ideation: No Patient has homicidal ideation: No - Past Medical History Cardiac Medical History: Reports: Hx Hypercholesterolemia, Hx Hypertension Denies: Hx Coronary Artery Disease, Hx Heart Attack Pulmonary Medical History: Reports: Hx Asthma Denies: Hx Bronchitis, Hx COPD, Hx Pneumonia Neurological Medical History: Denies: Hx Cerebrovascular Accident, Hx Seizures Endocrine Medical History: Reports: Hx Diabetes Mellitus Type 1 Renal/ Medical History: Reports: Hx End Stage Renal Disease, Hx Hemodialysis, Hx Peritoneal Dialysis Musculoskeltal Medical History: Denies Hx Arthritis Past Surgical History: Reports: Hx Orthopedic Surgery - Right BKA, Hx Vascular Surgery - fistula placement, Other - Amputation right lower extremity - Immunizations Hx Diphtheria, Pertussis, Tetanus Vaccination: Yes Review of Systems - Review of Systems Notes: REVIEW OF SYSTEMS: CONSTITUTIONAL: -fevers, -chills EENT: -eye pain, -difficulty swallowing, -nasal congestion CARDIOVASCULAR: -chest pain, -syncope. RESPIRATORY: -cough, -SOB GASTROINTESTINAL: +abdominal pain, -nausea, -vomiting, -diarrhea MUSCULOSKELETAL: -back pain, -neck pain SKIN: -rash or skin lesions. HEMATOLOGIC: -easy bruising or bleeding. LYMPHATIC: -swollen, enlarged glands. NEUROLOGICAL: -altered mental status or loss of consciousness, -headache, - neurologic symptoms PSYCHIATRIC: -anxiety, -depression. ALL OTHER SYSTEMS REVIEWED AND NEGATIVE. Physical Exam - Vital signs Vitals: Temp Pulse Resp BP Pulse Ox 98.5 F 90 14 153/81 H 100 04/21/17 15:26 04/21/17 15:26 04/21/17 15:04/21/17 15:04/21/17 15:26 - Notes Notes: PHYSICAL EXAMINATION: GENERAL: Well-appearing, well-nourished and in no acute distress. HEAD: Atraumatic, normocephalic. EYES: Pupils equal round and reactive to light, extraocular movements intact, sclera anicteric, conjunctiva are normal. ENT: nares patent, oropharynx clear without exudates. Moist mucous membranes. NECK: Normal range of motion, supple without lymphadenopathy LUNGS: Breath sounds clear to auscultation bilaterally and equal. No wheezes rales or rhonchi. HEART: Regular rate and rhythm without murmurs ABDOMEN: Soft, chronic ascites, nontender NEUROLOGICAL: Cranial nerves grossly intact. Normal speech, normal gait. Normal sensory and motor exams. PSYCH: Normal mood, normal affect. SKIN: Warm, Dry, normal turgor, no rashes or lesions noted. Course - Re-evaluation Re-evalutation: Patient appears well. SBP unlikely with febrile, no leukocytosis and nontender abdomen. Rest of blood work is unremarkable and is consistent with her known ESRD patient. No emergent need for dialysis at this time. Patient's main complaint is skilled nursing placement because she does not want to live with her brother in the same trailer anymore. She has already spoken to her primary care provider about this and they are in the process of obtaining skilled nursing placement. There is no need for inpatient admission at this time. Given very strict return precautions and she understands. - Vital Signs Vital signs: Temp Pulse Resp BP Pulse Ox 98.5 F 90 14 153/81 H 100 04/21/17 15:26 04/21/17 15:26 04/21/17 15:26 04/21/17 15:26 04/21/17 15:26 - Laboratory Result Diagrams: 04/21/17 17:13 04/21/17 16:14 Laboratory results interpreted by me: 04/21/17 04/21/17 16:14 17:13 RBC 3.35 L Hgb 10.0 L Hct 31.0 L RDW 17.1 H Lymphocytes % 12.3 L Chloride 97 L Creatinine 5.23 H Est GFR ( Amer) 11 L Est GFR (Non-Af Amer) 9 L Glucose 132 H Total Bilirubin 1.8 H Direct Bilirubin 1.4 H Alkaline Phosphatase 186 H Discharge - Discharge Clinical Impression: Chronic abdominal pain Condition: Stable Disposition: HOME, SELF-CARE Additional Instructions: You must continue to follow-up with your primary care provider to discuss skilled nursing placement. Take Zofran to help with any nausea. Tylenol and Pepcid for any pain. ABDOMINAL PAIN: There are many causes of abdominal pain. Pain can mean a serious problem requiring surgery (such as appendicitis). It can also be an innocent problem that goes away on its own (such as a viral infection). Often, time must pass to determine the cause of pain. The physician does not feel that hospitalization is necessary, at present. Things may change within the next 24 hours. Call the doctor or come back for re- examination if any problems occur, such as: (1) Pain that becomes more severe, steady, or becomes concentrated in one specific area. Also, pain that is more severe with movement or coughing. (2) Vomiting that persists or becomes more frequent. (3) Blood in the vomitus, urine, or bowel movements. Blood in the stool may have a tarry or black appearance. (4) Shaking chills or fever greater than 100 degrees F. (5) The abdomen becomes more distended or swollen. (6) Bowel movements cease. (7) Failure to improve as expected. NORMAL EXAM AND WORKUP: At this time, your examination and workup show no significant abnormality. No significant abnormal physical findings are noted. All laboratory, EKG, and imaging (x-ray, CT scans, ultrasound) studies that were ordered show no significant abnormality. Although your examination and all studies that were ordered showed no significant abnormal finding, there are no examinations and no studies that are 100% accurate. There is always the possibility that some abnormality could exist and not be detected with physical examination or within the limits and capabilities of laboratory and other studies. You should return or follow up as you were instructed on your visit today for further evaluation if your symptoms do not resolve. ANT[place]AUSEA MEDICATION: You have been given a medication to suppress nausea and vomiting. This type of medication can be given as a shot, pill, or suppository. It will usually last for many hours. Pills and shots usually last six to eight hours, suppositories last about 12 hours. For the typical illness, only one or two doses of the medication may be necessary. Mild lightheadedness may occur. This type of medicine can cause drowsiness. Do not drive or operate dangerous machinery while under its influence. Do not mix with alcohol. See your doctor at once if you have muscle spasms or tightness, or uncontrollable motions (particularly of the neck, mouth, or jaw). Persistent vomiting or severe lightheadedness should also be evaluated by the physician. FOLLOW-UP CARE: If you have been referred to a physician for follow-up care, call the physician s office for an appointment as you were instructed or within the next two days. If you experience worsening or a significant change in your symptoms, notify the physician immediately or return to the Emergency Department at any time for re-evaluation. Prescriptions: Famotidine [Pepcid 20 mg Tablet] 20 mg PO BID #12 tablet Ondansetron [Zofran Odt 4 mg Tablet] 1 - 2 tab PO Q4H PRN #15 tab.rapdis PRN Reason: For Nausea/Vomiting Forms: Elevated Blood Pressure Referrals: KARIS CHEW PA-C [NO LOCAL MD] - Follow up as needed
[2017-04-21] MEDS ORDERED: ONDANSETRON HCL 8 MG TABLET PO ONE (18:55)
[2017-04-21] MEDS ORDERED: ACETAMINOPHEN 325 MG TABLET PO ONE (18:55)
== END 2017-04-21 19:14 | disposition home or self-care (01) ==
LOC: ER 15:20
DX: R10.13 Epigastric pain (principal); G89.29 Other chronic pain; N18.6 End stage renal disease; Z99.2 Dependence on renal dialysis
CPT/HCPCS: 99284; 36415; 83690; 85025; 80053; 74022; A9270 ×2; S0119